=== PATIENT | female | born 1960 | race Caucasian/White ===

== ENCOUNTER 2018-02-14 07:36 | Day surgery (SDC) | payer OTHER, SELFPAY ==
[2018-02-12 12:07] VITALS: BMI 30.7
[2018-02-14] VITALS (14 sets, daily range): BP systolic 110–127; BP diastolic 57–85; PULSE 64–74; RESP 10–16; TEMP 35.9–36.9; O2SAT 92–100; BMI 30.2
[2018-02-14] MEDS: LACTATED RINGERS 1,000 ML 42 ML IV ×2 (08:46→11:31)
--- NOTE | 2018-02-14 08:48 | PM.PREOP ---
Pre-operative Note Interval Note Pre-op Check: History & Physical Reviewed by Physician
[2018-02-14] MEDS: fentaNYL 100 MCG/2 ML INJ 50 MCG IV ×2 (09:02→09:03)
[2018-02-14] MEDS: MIDAZOLAM 2 MG/2 ML VIAL IV (09:02)
[2018-02-14] MEDS: CEFTRIAXONE 2 GM/50 ML FROZ.PIGGY IV (09:29)
--- NOTE | 2018-02-14 10:29 | SUR.OPER ---
Lateral on padded OR bed with moore bag positioner, head on pillow, gel axillary roll in place, bottom leg bent with gel pad under knee to foot, upper leg straight and supported with pillows. Operative arm secured in shoulder positioning suspension device. non-operative arm secured on padded arm board. Safety belt at hip, tape over blanket securing lower legs.
[2018-02-14] MEDS: SODIUM CHLORIDE IRRIG SOLUTION 3,000 ML, EPINEPHrine 1 MG IRR ×2 (10:39→10:40)
[2018-02-14] MEDS: SODIUM CHLORIDE IRRIG SOLUTION 3,000 ML 24000 ML IRR (12:49)
[2018-02-14] MEDS: BUPIVACAINE 0.25% (PF) 30 ML VIAL INJ (12:59)
--- NOTE | 2018-02-14 13:43 | PM.OP.1 ---
Operative Date/Time/Diagnoses - Date of procedure: 02/14/18 Time of procedure: 09:43 Pre-op diagnosis: Right shoulder rotator cuff tear Right shoulder biceps tendinitis Right shoulder degenerative labral tear Post-op diagnosis: same Procedure & Clinicians Procedure: Right shoulder arthroscopic rotator cuff repair Right shoulder mini open biceps tenodesis Right shoulder arthroscopic debridement limited Same procedure as scheduled: Yes Indications: This is a 57-year-old female with a full-thickness rotator cuff tear and biceps tendon symptoms she received significant relief from a biceps tendon sheath injection was unable to return to her desired activity of paddling and rowing. She failed a course of non operative management and was indicated for operative repair. Risks benefits alternatives were discussed risks include pain bleeding infection damage nearby structures lack of symptom relief need for further procedures retear lack of healing kiana deformity and anesthetic risks. She signed a written consent form Surgeon: Miguel Rios Attending Anesthesiologist: Kika Covington Click Yes if Unassisted: No Anesthesia Type: General, Peripheral nerve block and Local Operative Notes Findings: Examination under anesthesia: 180? of forward flexion and 160? of Abduction. 70? of external rotation. No laxity on anterior posterior or inferior load and shift Diagnostic arthroscopy: Subscapularis tendon was intact. There was some hypertrophic synovium at the bicipital sling which was excised. The biceps tendon appeared intact with a stable anchor and a grade 1 slap tear. There was disruption of the rotator interval. There is a degenerative anterior labral tear that was debrided. Inferior and posterior labrum were intact. Rotator cuff showed a full-thickness tear of the supraspinatus with mild retraction that was easily reducible. Supraspinatus was fixed with a double row repair. Humeral head cartilage was intact. Glenoid cartilage was intact. Infraspinatus tendon was intact. Subacromial bursitis was evident and this was debrided. acromion was flat. Closure Type: primary Specimen(s): none sent Implants & Drains: Arthrex corkscrew x2. Arthrex SwiveLock x2. Arthrex fiber tack x1. Estimated Blood Loss (mL): 25 Blood products transfused: none Procedure in detail: Patient was met in the preoperative hold area on the day of the procedure and the operative extremity was signed. All questions were answered and she desired to proceed. A nerve block was performed by Anesthesia. She was then brought to the operating room and surrendered to anesthesia. Once general anesthesia had been obtained was placed in the lateral position using a beanbag, axillary roll was placed, all bony prominences were well padded. She was then prepped and draped in the standard sterile fashion and a surgical time-out was held to confirm the patient identity procedure laterality allergies images are in agreement we proceeded. A standard diagnostic arthroscopy of the shoulder was performed utilizing a posterior and anterior superior portal. The anterior superior portal was placed under direct visualization after the rotator interval had been imaged. Diagnostic arthroscopy findings can be found above. I then debrided a small amount of the sling tissue from the border of the subscapularis and found the subscapularis to be intact when posterior force was applied. The anterior labral tear was then debrided from the anterior border of the glenoid. The long head of biceps tendon was cut at its insertion to the labrum. I then removed the lateral force off of the arm and placed it in into the bursoscopy position. I then removed the instruments from the glenohumeral joint and placed the camera through the posterior portal and out the anterior portal cannula was then brought back down from the anterior skin portal into the subacromial space and a subacromial bursectomy was performed. The rotator cuff tear was evident and involved the entire supraspinatus insertion in a crescent pattern. I then debrided the free edge of the rotator cuff to a bleeding base. I established anterolateral and posterolateral working and viewing portals and placed a passport through the anterolateral wound. I then established a horizontal incision off the edge of the acromion for placement of the anchors. I then placed 2 medial row anchors just off the articular margin centered over the tear. I then sequentially passed all sutures through the cuff tissue the starting anteriorly and moving posteriorly. After sutures were passed with the tissue the anterior ones were brought out the anterior portal and the posterior was given a posterior portal. Satisfied with the passing of my sutures I then tied them from posterior to anterior using an arthroscopic sliding knot which was backed up with 3 half hitches alternating posts. Satisfied with the reduction of the tendon but signal was a small dog-ear posteriorly I placed a fiber link in that dog ear tissue. I then identified location of the lateral looked row 1 and 0.5 cm off the greater tuberosity lateral border. One suture from each knot was then passed out the passport and loaded onto a SwiveLock. I then placed the swivel locks in the identified position and tensioned each suture individually finding it provide excellent compression on the cuff. I then placed the anchor without complication. I then passed the remaining sutures through additional SwiveLock and this was included the fiber link in the dog-ear. The 2nd SwiveLock was placed posteriorly incorporating the dog-ear and helped to reduce it. Satisfied with the final construct images were taken and the repair was probed extensively and found to be stable. internal and external rotation showed the tendon to move with the humerus well. Balance suspension was then taken off of the limb I proceeded to the mini open biceps tenodesis. I created a 3 cm incision near the axilla centered over the Pec major tendon. I then used blunt dissection down through the fascia and identified the long head of the biceps tendon. It was delivered from the wound with my finger. A Macias elevator was then brought in and the bicipital groove was debrided of all synovial type tissue. The curved guide was then brought down into the bicipital groove just under the Brown major tendon and the suture tack was placed. It was found to have excellent fixation. Satisfied with its position I then started 2 cm proximal to the musculotendinous junction and placed 4 bites down 4 bites up and then with the other suture and a single passed through the tendon. I then pulled on the single pass 2 suture after cutting excess tendon and this reduced the tendon nicely down to the groove. A knot of a reverse half hitches alternating post was placed and this fixed nicely. Tension was restored. I then irrigated all wounds copiously and closed in layered fashion with 2 O Vicryl in the dermis and buried Monocryl in the skin. Mastisol and Steri-Strips were placed with an overlying dressing. She was awakened and transferred to the recovery room. Complications: none Condition: stable Disposition: same day surgery Plan for aftercare: 0-2 weeks: Sling at all times. Perform pendulum exercises. 2-6 weeks: Passive range of motion to the arise in an external rotation on limited. No active biceps flexion. 6-12 weeks active assist range of motion in Abduction and forward flexion. May gradually increase active flexion at the elbow. Twelve weeks to 5 months: Active range of motion of the shoulder with gradual strengthening when full range of motion is achieved. Five months: May begin dynamic activities to include paddling if ready.
== END 2018-02-14 15:25 | disposition home or self-care (01) ==
PROVIDERS: Visit Provider Orthopaedic Surgery
PROC: (CPT 29827; principal; 2018-02-14 09:15)
PROC: (CPT 24341; 2018-02-14 09:15)
DX: M75.101 Unspecified rotator cuff tear or rupture of right shoulder, not specified as traumatic (principal); M75.21 Bicipital tendinitis, right shoulder; S43.431A Superior glenoid labrum lesion of right shoulder, initial encounter; E66.9 Obesity, unspecified
CPT/HCPCS: 23430; 29827; 64450; J0171; J0696; J1100; J2250; J2405; J2704; J3010

== ENCOUNTER 2021-10-09 17:21 | Inpatient (IN) | payer OTHER, SELFPAY ==
[2021-10-09 17:37] VITALS: BMI 30.7
--- NOTE | 2021-10-09 20:49 | P.HP_ITS ---
History of Present Illness History of Present Illness Date Patient Seen: 10/09/21 Time Patient Seen: 20:49 Chief complaint: Infected Kidney Stone Narrative: Nadege Russo is a 60-year-old female with no particular medical history apparently woke up approximately 24 hours ago with shivers back pain bilaterally, pain in her lower pubic area. She thought she was constipated that she had not had a bowel movement but then had a small amount of stool. She denies fevers sweats or chills, shortness of breath, chest pain, nausea vomiting, urinary retention, diarrhea, or upper lower extremity neuropathies. She tried Tylenol to help relieve the pain because she can not take nonsteroidal anti-inflammatories. She states that when she takes and states she loses her sense of smell. She has a past medical history of asthma. The patient is a direct admission from [facility] due to having a need for access to a urologist. She was found to have to obstructing renal stones 1 being 4 x 8 mm in the left ureteropelvic junction and another 7 x 11 mm stone in the left ureteral vesicle junction. The report stated there was mild hydronephrosis. Patient has a mild fever of 99.4, blood pressure 122/57, heart rate 83, respiratory rate 18, oxygen saturation 94% on room air she weighs 86.5 kg with a BMI of 30.7. Her labs taken at [facility] included a WBC of 7.6, RBC 4.72, hemoglobin 13.5, hematocrit 41.8, platelet count 206, with a mild left shift of 7100, sodium 137, potassium 3.8, chloride 101, by carb 26, BUN 16, creatinine 0.9, with a job GFR of 63, glucose 140, calcium 9.2, total bilirubin 1.1, AST 27, ALT 38, alk phos 94, total protein 9.6, albumin 4.3, globulin 3.3, lipase 31, her UA was positive for being cloudy with a urine pH of 6.5 she had a small- bowel of occult blood positive nitrates moderate leukocytes WBC clumps with rare squamous cells moderate amount of bacteria with indications for a urine culture. Patient History Medical History Asthma Biceps tendinitis of right shoulder Eczema Impaired vision Prediabetes Rotator cuff tear, right Family & Social History Family History (Updated 10/10/21 @ 00:40 by ARIELA Babin) Mother Myocardial infarction Father Unspecified aircraft accident injuring occupant, sequela Social History: household members spouse,children Prior Living Arrangements House Safety & Behavioral: Feels Safe in Current Yes Environment Been Physically Hurt or No Threatened By a Person Suicidal Ideation Description None Suicide Plan Description No Plan Tobacco & Substance use: Smoking Status Never smoker alcohol intake current alcohol intake frequency holiday/special occasion Substance Use Type does not use Meds Home Medications and Allergies Home Medications Medication Instructions Recorded Confirmed Type loratadine 10 mg tablet 10 mg PO DAILY 02/12/18 10/09/21 History fluticasone propionate 115 2 puff INHALATION BID 10/09/21 10/09/21 History mcg-salmeterol 21 mcg/actuation HFA inhaler (Advair HFA) Allergies Allergy/AdvReac Type Severity Reaction Status Date / Time NSAIDS (Non-Steroidal Allergy Unknown Loss of Verified 02/12/18 12:24 Anti-Inflamma smell, insomnia Sulfa (Sulfonamide Allergy Unknown Hives, Verified 02/12/18 12:24 Antibiotics) rash, swelling Review of Systems Review of Systems ROS: Yes All systems reviewed with the patient and are negative except as otherwise documented Exam Vital Signs (past 8 hours): Patient has a mild fever of 99.4, blood pressure 122/57, heart rate 83, respiratory rate 18, oxygen saturation 94% on room air she weighs 86.5 kg with a BMI of 30.7. Narrative Exam Narrative: Gen: Alert, oriented, well-developed 60 y.o. female, pale HEENT: normocephalic, atraumatic, conjunctiva clear, sclera non-icteric, oral mucosa pink and moist Neck: supple, full ROM, no JVD, trachea is midline Resp: Lungs CTA, non-labored breathing CV: RRR, no murmur or rubs Abd: soft, non-tender, normoactive BTs she does have bilateral cva tenderness Skin: no lesions or rashes, dry and intact Neuro: Alert and oriented X 4 w/no focal deficits. Speech clear and coherent. Extremities: moves all 4 extremities, is ambulatory, negative Keith?s sign Psyche: normal mood and affect. Assessment & Plan Assessment & Plan narrative: Nadege Russo is admitted as an inpatient for further evaluation and treatment for to left-sided rather large renal calculi. 1. Left-sided renal calculi no acute, present on admission * Dr. Cannon has been notified and will likely see the patient in the morning * She is NPO * Have started her on IV ceftriaxone 1 g daily * IV NS at 100 ml/hour VTE Prophylaxis: Wells risk score 0 Bilateral SCDs. Pharmacological DVT prophylaxis is contraindicated due to probable surgery in the morning. Patient is admitted to the inpatient service due to the severity of disease, risks of further disease progression and this stay is expected to exceed 2 midnights. FEN: IV fluids: IV NS at 100 ml/hour, diet: NPO, labs: CBC, C/BMP, liver enzymes, Mag Consultants None Dr. Cannon, urologycare and involvement in the patient?s care is appreciated. Dispo: probable discharge to home in one or two days Code status: Full code as discussed with the patient who identifies her , Damon Russo as her surrogate and POA. [X] I have utilized all available immediate resources to obtain, update, or review of the patient's current medications COVID-19 COVID-19 status: Negative Result date/Date tested (Pos, Neg/Pending): 10/10/21 Time Spent With Patient Critical Care time: I spent a total of [] minutes of critical care time on this patient's care today; this time is exclusive of procedural time. Quality VTE Deep Vein Thrombosis/Pulmonary Embolism Present on Admission: No MIPS - Admit I confirm the patient?s Advance Care Plan is present, Code status is documented, Surrogate decision maker is in patient?s record [If Yes, STOP here]: Yes MIPS - DC The patient has current or prior documentation of left ventricular ejection fraction (LVEF) less than 40%, or moderate or severely depressed left ventricular systolic function.: No
[2021-10-09 20:50] VITALS: BP 111/60; PULSE 76; RESP 16; TEMP 37.2; O2SAT 94
[2021-10-09] MEDS: cefTRIAXone 1,000 MG in SODIUM CHLORIDE 0.9% 100 ML 200 ML IV (20:51)
[2021-10-09] MEDS: SODIUM CHLORIDE 0.9% 1,000 ML 100 ML IV ×2 (20:51→23:06)
[2021-10-09] MEDS: KETOROLAC 30 MG/ML VIAL 15 MG IV (23:24)
[2021-10-09 23:58] VITALS: BP 122/57; PULSE 83; RESP 18; TEMP 37.4; O2SAT 94
[2021-10-10] VITALS (13 sets, daily range): BP systolic 116–139; BP diastolic 61–78; PULSE 70–91; RESP 14–20; TEMP 37.1–38.5; O2SAT 93–98; BMI 30.7
--- NOTE | 2021-10-10 | DI.RAD.S_ITS ---
PROCEDURE: XR ABDOMEN 1V INDICATIONS: LEFT STENT PLACEMENT TECHNIQUE: One view of the abdomen acquired. COMPARISON: [facility], CT, CT KIDNEY URETER BLADDER (KUB), 10/10/2021, 7:52. FINDINGS: A single fluoroscopy image demonstrate placement of left ureteral stent. Proximal ureteral stent is formed in the left upper abdomen. The distal and is not within the field of view. IMPRESSION: Placement of left ureteral stent. Dictated by: Dorothea Corrales M.D. on 10/10/2021 at 16:55 Approved by: Dortohea Corrales M.D. on 10/10/2021 at 16:56
[2021-10-10] MEDS: MORPHINE 2 MG/ML INJ IV ×3 (04:25→20:37)
[2021-10-10 06:25] LABS: Add Manual Diff / Slide Review NO; Basophils Absolute Auto 0 /uL (0-100); Basophils Percent Auto 0.7 % (0-2); Eosinophils Absolute Auto 0 /uL (0-450); Eosinophils Percent Auto 0.2 % (2-4); Hematocrit 35.3 % (36-46); Hemoglobin 11.8 g/dL (12.0-16.0); Lymphocytes Absolute Auto 200 /uL (1100-4500); Lymphocytes Percent Auto 2.9 % (25-40); Mean Corpuscular HGB Conc 33.4 % (30-36); Mean Corpuscular Hemoglobin 28.6 PG (26-34); Mean Corpuscular Volume 85.8 fL (80-100); Monocytes Absolute Auto 300 /uL (0-900); Neutrophils Absolute Auto 4800 /uL (1500-7000); Neutrophils Percent Auto 91.2 % (50-75); Platelet Count 152 X10^3/uL (150-400); Red Blood Cell Count 4.11 X10^6/uL (4.0-5.2); Red Cell Distribution Width 14.6 % (11.6-14.8); White Blood Cell Count 5.3 X10^3/uL (4.5-11.0)
[2021-10-10 06:32] LABS: Alanine Aminotransferase 29 IU/L (<35); Albumin 3.7 g/dL (3.5-5.0); Albumin Globulin Ratio 1.3 (1.0-2.8); Alkaline Phosphatase 80 U/L (38-126); Aspartate Aminotransferase 24 IU/L (14-36); BUN Creatinine Ratio 18.3 (6-22); Bilirubin Total 0.8 mg/dL (0.2-1.3); Bilirubin Unconjugated 0.7 mg/dL (0.0-1.1); Blood Urea Nitrogen 15 mg/dL (7-17); Calcium 8.8 mg/dL (8.4-10.2); Carbon Dioxide 24 mmol/L (22-32); Chloride 107 mmol/L (98-107); Estimated Glomerular Filt Rate > 60.0 mL/min (>60); Globulin 2.9 g/dL (1.7-4.1); Glucose 114 mg/dL (80-110); HEMOLYSIS < 15 (0-50); Potassium 3.8 mmol/L (3.4-5.1); Sodium 136 mmol/L (137-145); Total Protein 6.6 g/dL (6.3-8.2)
[2021-10-10 06:49] LABS: Procalcitonin 7.86 ng/mL (<0.5)
--- NOTE | 2021-10-10 07:40 | P.CONS_ITS ---
History of Present Illness Consult details Date Patient Seen: 10/10/21 Time Patient Seen: 07:40 Chief complaint: Infected Kidney Stone Reason for consult: Obstructing left ureteral calculi Requesting provider: Malorie Bonilla Narrative: The patient is generally healthy 60-year-old female presented to [facility] less than 24 hours ago with complaint of bilateral back pain, suprapubic discomfort, and shivers. She denied fever, chills, nausea, vomiting, or dysuria. Evaluation revealed essentially normal WBC with mild left shift, in normal chemistries other than mildly elevated glucose consistent with her previous history of ?prediabetes uncle. Urinalysis demonstrated moderate bacteria and rare squamous cells and was nitrite positive. Imaging, by history (images and report were not push to [facility]!), is that a 4 x 8 mm left ureteropelvic junction calculus and a 7 x 11 mm left ureteral vesicle junction calculus associated with mild left hydronephrosis were demonstrated. Request for transfer to the medical service was established and now urology consultation requested. Meds Home Medications and Allergies Home Medications Medication Instructions Recorded Confirmed Type loratadine 10 mg tablet 10 mg PO DAILY 02/12/18 10/09/21 History fluticasone propionate 115 2 puff INHALATION BID 10/09/21 10/09/21 History mcg-salmeterol 21 mcg/actuation HFA inhaler (Advair HFA) Allergies Allergy/AdvReac Type Severity Reaction Status Date / Time NSAIDS (Non-Steroidal Allergy Unknown Loss of Verified 02/12/18 12:24 Anti-Inflamma smell, insomnia Sulfa (Sulfonamide Allergy Unknown Hives, Verified 02/12/18 12:24 Antibiotics) rash, swelling Review of Systems Review of Systems ROS: Yes All systems reviewed with the patient and are negative except as otherwise documented Exam Vital Signs (past 8 hours): - 10/09/21 23:58 10/10/21 04:15 Temperature 99.4 F 98.7 F Pulse Rate 83 91 H Respiratory Rate 18 20 Blood Pressure 122/57 L 134/69 Pulse Oximetry 94 Oxygen Flow Rate 96 Narrative Exam Narrative: Awake, alert, and in no acute distress. Head/neck-sclera clear and pupils are round and equal bilaterally. No visible evidence of adenopathy or JVD. Chest-equal and unlabored expansion bilaterally. Heart-normal sinus rhythm. Abdomen-nondistended bowel tones are normal and active. No localizing tenderness. Objective Labs Result Diagrams: 10/10/21 05:39 10/10/21 05:39 Labs: Laboratory Results - last 24 hr 10/10/21 10/10/21 10/10/21 05:39 05:39 05:39 WBC 5.3 RBC 4.11 Hgb 11.8 L Hct 35.3 L MCV 85.8 MCH 28.6 MCHC 33.4 RDW 14.6 Plt Count 152 Neut % (Auto) 91.2 H Lymph % (Auto) 2.9 L [place] % (Auto) 5.0 Eos % (Auto) 0.2 L Baso % (Auto) 0.7 Neut # (Auto) 4800 Lymph # (Auto) 200 L [place] # (Auto) 300 Eos # (Auto) 0 Baso # (Auto) 0 Sodium 136 L Potassium 3.8 Chloride 107 Carbon Dioxide 24 BUN 15 Creatinine 0.82 Estimated GFR > 60.0 BUN/Creatinine Ratio 18.3 Glucose 114 H Calcium 8.8 Total Bilirubin 0.8 Conjugated Bilirubin 0.0 Unconjugated Bilirubin 0.7 AST 24 ALT 29 Alkaline Phosphatase 80 Total Protein 6.6 Albumin 3.7 Globulin 2.9 Albumin/Globulin Ratio 1.3 Procalcitonin 7.86 H [facility] Medical History Asthma Biceps tendinitis of right shoulder Eczema Impaired vision Prediabetes Rotator cuff tear, right Family History Mother Myocardial infarction Father Unspecified aircraft accident injuring occupant, sequela Social History household members: spouse and children Tobacco & Substance Use Smoking Status: Never smoker alcohol intake: current Assessment & Plan Assessment & Plan narrative: Assessment: 1. Obstructing left ureteral calculi x2. 2. UTI/possible left pyelonephritis. Plan: 1. Discussion informed consent in scheduling to OR for CYSTOSCOPY/PLACEMENT LEFT URETERAL STENT. 2. Continue current ceftriaxone and await final culture and sensitivity before transition to oral antibiotic for sensitivity panel. Recommend 2 week antibiotic treatment. 3. Future left ureteroscopic laser lithotripsy. 4. Future metabolic stone risk evaluation. 5. CT KUB. 6. Request images and reports pushed from [facility]. Time Spent With Patient Critical Care time: I spent a total of [] minutes of critical care time on this patient's care today; this time is exclusive of procedural time.
[2021-10-10] MEDS: KETOROLAC 30 MG/ML VIAL 15 MG IV (07:45)
[2021-10-10] MEDS: SODIUM CHLORIDE 0.9% 1,000 ML 100 ML IV (07:46)
--- NOTE | 2021-10-10 08:05 | DI.CT.S_ITS ---
PROCEDURE: CT KIDNEY URETER BLADDER (KUB) INDICATIONS: Left ureteral calculi TECHNIQUE: Axial sections were acquired from the lung bases to the pubic symphysis. Coronal and sagittal reformats were performed. For radiation dose reduction, the following was used: automated exposure control, adjustment of mA and/or kV according to patient size. COMPARISON: [facility], , CT ABDOMEN/PELVIS WITH CONTRAST, 10/09/2021, 7:37. FINDINGS: Image quality: Excellent. Lung bases: Bibasilar dependent atelectasis is seen.. Heart: No significant findings. URINARY: Right Kidney: Again noted is 4 x 8 mm stone in left UPJ. Nonobstructing stone in midpole of left kidney measures 3 mm in size is also seen. There is mild to moderate left-sided hydronephrosis and mild left perinephric fat stranding. Right Ureter: Right hydroureter is seen with 6 mm stone in distal left ureter just proximal to left UVJ unchanged from previous study. Mild left periureteral fat stranding is also seen. Left Kidney: No stones or hydronephrosis. Left Ureter: No hydroureter. Bladder: Normal wall thickness. No stones. ABDOMEN: Liver: Unremarkable. Gallbladder: Hyperdense material within dependent portion of gallbladder lumen is seen and may represent hyperdense sludge material. No gallbladder wall thickening or pericholecystic fluid is seen. Biliary ducts: Unremarkable. Pancreas: Unremarkable. Spleen: Unremarkable. Adrenal Glands: Unremarkable. Stomach and Bowel: Stomach, small bowel loops, and colon are unremarkable. Appendix is visualized and is within normal limits. Mild sigmoid diverticulosis is noted, no CT evidence of acute diverticulitis. Peritoneum: No abnormal intraperitoneal fluid. No free air. Ventral Wall: No hernia. Abdominal Nodes: No enlarged retroperitoneal or mesenteric lymph nodes. Vessels: Aorta and inferior vena cava are normal in size. PELVIS: Pelvic Organs: Unremarkable. Pelvic Nodes: Unremarkable. Miscellaneous: No inguinal hernias are seen. Bones: No acute vertebral body compression fractures. No suspicious bony lesion. IMPRESSION: 1. 6 mm left distal ureteral stone just proximal to left UVJ unchanged from prior study. 4 x 8 mm left UPJ stone also unchanged from prior study. Mild to moderate left-sided hydronephrosis and hydroureter as well as mild left perinephric fat stranding. No right-sided renal stone or hydronephrosis. Normal appearing urinary bladder. 2. Hyperdense material in dependent portion of gallbladder lumen likely represent hyperdense sludge material. No CT evidence of acute cholecystitis. No biliary ductal dilatation. 3. Previous CT finding of prominent left gonadal veins is not appreciated on the current study likely due to lack of IV contrast. Previous CT finding of tiny hypodensities in spleen is also not well appreciated on the current study. Dictated by: Anibal Ramirez M.D. on 10/10/2021 at 8:49 Approved by: Anibal Ramirez M.D. on 10/10/2021 at 8:56
--- NOTE | 2021-10-10 08:52 | CM.DANOTE ---
DCP: Case received, EMR reviewed and met with patient. Introduced self and role. Was able to obtain information regarding patient's baseline activity level prior to hospitalization. DCP assessment completed with information currently available. Patient is a 60 year old female who admitted yesterday afternoon to the care of the hospitalist team. PCP: [facility] Payer: confirmed: [employer]. Patient came to the hospital via private vehicle sent over from [facility]. Patient was in need of a urologist, which [facility] currently does not have. Patient had been experiencing increased back pain. Patient holds diagnosis of obstructing kidney stone, and UA had noted moderate bacteria. Dr. Roman will be seeing patient. Met with patient in her room. She was sitting up in her chair, alert and oriented, pleasant. Patient resides in [place] with her spouse, Damon. She is independent at her baseline, and goes to the [facility] clinic for her primary care needs. P: DCP to continue to follow. Patient should be able to go home when she is medically stable. Kaitlin Arredondo RN/Elementary Classroom Teacher Discharge Planning/Care Management CM Discharge Assessment Start: 10/10/21 08:46 Freq: Status: Active Protocol: Document 10/10/21 08:46 (Rec: 10/10/21 08:52 [id number]) Discharge Planning Assessment Assigned Truck Loader Kaitlin Arredondo RN/Elementary Classroom Teacher Advance Directives? No History Provided By Patient,Medical Record Prior Living Arrangements House Household Members spouse,children Type of transporation used prior to Drives own vehicle admit Independent with ADL's Yes Is patient alert and oriented? Yes Caregiver for Another No Discharge Plan Home Transportation Arrangement Spouse Referrals Initiated None needed Whiteboard Updated in Patient Room with Yes name and ext. # of Truck Loader Review Status In Process Next Review Type Continued Stay Review
[2021-10-10] MEDS: LACTATED RINGERS 1,000 ML 42 ML IV (14:47)
--- NOTE | 2021-10-10 15:35 | SUR.OPER ---
Lithotomy on padded OR bed, head on pillow, arms secured on padded arm boards at <90 degrees abduction. Legs secured in padded yellow fins stirrups.
[2021-10-10] MEDS: BELLADONNA/OPIUM SUPPOSITORIES 1 EACH PR (16:12)
--- NOTE | 2021-10-10 16:31 | PM.OP.1 ---
Operative Date/Time/Diagnoses Date of procedure: 10/10/21 Time of procedure: 16:31 Pre-op diagnosis: 1. Obstructing left ureteral calculi x2. 2. UTI/left pyelonephritis. Post-op diagnosis: same Procedure & Clinicians Procedure: 1. Cystoscopy/left ureteral stone manipulations without removal. 2. Cystoscopy/placement left ureteral stent (7 Paraguayan by 22-32 cm multi-length). Same procedure as scheduled: Yes Indications: 1. Obstructing left ureteral calculi x2. 2. UTI/left pyelonephritis in Click Yes if Unassisted: Yes Anesthesia Type: General Operative Notes Findings: 1. Urethra-mildly stenotic at approximately 16-18 Paraguayan diameter. Gently dilated with the 22 Paraguayan cystoscope obturator. 2. Bladder-trace trabeculation. Hyperemia throughout generally and more intensely in of a single left ureteral orifice and intramural ureter. There was a small amount of sediment somewhat adherent to the bladder base. Obstructive efflux was seen emanating from the swollen and erythematous left ureteral orifice following positioning of the ureteral guidewire and subsequent stent. Closure Type: not applicable Specimen(s): none sent Applied: other (7. Paraguayan by 22-32 cm multi-length stent) Estimated Blood Loss (mL): 0 Blood products transfused: none Procedure in detail: Patient was positioned in supine was administered general anesthesia. She was then repositioned semi lithotomy and the lower abdomen, genitalia, and groin were then prepped and draped in sterile fashion. Twenty-two Paraguayan panendoscope was passed lower urinary track after gentle dilation with the obturator, with the findings as described above. Next a 0.35 hybrid guidewire was then advanced through the working port of the panendoscope and and the left ureteral orifice under direct and fluoroscopic guidance. Over this, a 7 Paraguayan by 22-32 cm multi-length stent was advanced over the guidewire and positioned appropriately under direct and fluoroscopic guidance. NO RETRIEVAL LINE WAS LEFT ATTACHED. The bladder was then drained completely and all instrumentation was removed. The patient was repositioned supine, was awake, within was transferred to a gurney for transport to PACU. Complications: none Post-operative Condition: stable Disposition: PACU Plan for aftercare: Admit to acute care.
--- NOTE | 2021-10-10 17:14 | PM.PN.1 ---
Subjective Subjective Date Patient Seen: 10/10/21 Time Patient Seen: 08:00 Interval history: This morning she felt not great. Still having flank pain. Exam Vital Signs (past 8 hours): - 10/10/21 14:24 10/10/21 16:34 10/10/21 16:39 Temperature 101.3 F H 99.7 F H Pulse Rate 75 86 78 Respiratory Rate 16 17 15 Blood Pressure 139/78 120/62 129/65 Pulse Oximetry 96 95 10/10/21 16:44 10/10/21 16:49 10/10/21 16:54 Temperature 99.5 F Pulse Rate 77 75 72 Respiratory Rate 14 15 15 Blood Pressure 124/65 128/64 125/62 Pulse Oximetry 95 94 95 10/10/21 16:59 10/10/21 17:03 Temperature Pulse Rate 72 73 Respiratory Rate 15 15 Blood Pressure 121/65 128/63 Pulse Oximetry 93 94 Oxygen Delivery Method Room Air Oxygen Flow Rate 0 Narrative Exam Narrative: Gen: no acute distress Resp: lungs clear bilaterally CV: regular rate and rhythm Abd: soft, non-tender Objective Labs Result Diagrams: 10/10/21 05:39 10/10/21 05:39 Labs: Laboratory Results - last 24 hr 10/10/21 10/10/21 10/10/21 05:39 05:39 05:39 WBC 5.3 RBC 4.11 Hgb 11.8 L Hct 35.3 L MCV 85.8 MCH 28.6 MCHC 33.4 RDW 14.6 Plt Count 152 Neut % (Auto) 91.2 H Lymph % (Auto) 2.9 L Vermilion % (Auto) 5.0 Eos % (Auto) 0.2 L Baso % (Auto) 0.7 Neut # (Auto) 4800 Lymph # (Auto) 200 L Vermilion # (Auto) 300 Eos # (Auto) 0 Baso # (Auto) 0 Sodium 136 L Potassium 3.8 Chloride 107 Carbon Dioxide 24 BUN 15 Creatinine 0.82 Estimated GFR > 60.0 BUN/Creatinine Ratio 18.3 Glucose 114 H Calcium 8.8 Total Bilirubin 0.8 Conjugated Bilirubin 0.0 Unconjugated Bilirubin 0.7 AST 24 ALT 29 Alkaline Phosphatase 80 Total Protein 6.6 Albumin 3.7 Globulin 2.9 Albumin/Globulin Ratio 1.3 Procalcitonin 7.86 H [facility] Medical History Asthma Biceps tendinitis of right shoulder Eczema Impaired vision Prediabetes Rotator cuff tear, right Family History Mother Myocardial infarction Father Unspecified aircraft accident injuring occupant, sequela Social History household members: spouse and children Smoking Status: Never smoker alcohol intake: current Assessment & Plan Assessment & Plan narrative: 1. UTI with infected kidney stone with obstructed ureter and hydronephrosis -CT scan shows two obstructing kidney stones -patient has remained NPO, on IV antibiotics -await cultures -urology consult with plan intervention today 10/10 2. Anemia -mild -no need for transfusion, monitor 3. Spleen hypodensities -repeat CT scan does not show clear hypodensities -follow up with PCP on discharge Time Spent With Patient Critical Care time: I spent a total of [] minutes of critical care time on this patient's care today; this time is exclusive of procedural time. Quality VTE Deep Vein Thrombosis/Pulmonary Embolism Present on Admission: No
[2021-10-10] MEDS: LACTATED RINGERS 1,000 ML 125 ML IV (17:29)
--- NOTE | 2021-10-10 19:16 | PC.NURSE ---
A&Ox4. Returned from PACU this evening. Room air 94%. VSS. Pain 0-2/10. Good appetite, tolerating food and oral liquids well. Non/v. LR @ 125. 700 urine output, clear yellow. SBA. SCDs on BLE. Call light within reach, bed low.
[2021-10-10] MEDS: cefTRIAXone 1,000 MG in SODIUM CHLORIDE 0.9% 100 ML 200 ML IV (20:32)
--- NOTE | 2021-10-10 21:02 | RT ---
Went to give breathing treatments to pt at 2035. Pt prefers to use her own MDIs she brought from home. RN aware of labels needed for pt's meds in the morning.
[2021-10-11 00:46] VITALS: BP 120/61; PULSE 56; RESP 18; TEMP 36.2; O2SAT 99
[2021-10-11] MEDS: OXYCODONE IR 5 MG TABLET PO ×2 (00:49→08:22)
[2021-10-11 05:02] VITALS: BP 125/53; PULSE 45; RESP 16; TEMP 36.2; O2SAT 96
[2021-10-11 06:09] LABS: Hematocrit 33.6 % (36-46); Hemoglobin 11.3 g/dL (12.0-16.0); Mean Corpuscular HGB Conc 33.7 % (30-36); Mean Corpuscular Hemoglobin 28.5 PG (26-34); Mean Corpuscular Volume 84.4 fL (80-100); Platelet Count 145 X10^3/uL (150-400); Red Blood Cell Count 3.98 X10^6/uL (4.0-5.2); Red Cell Distribution Width 14.3 % (11.6-14.8); White Blood Cell Count 3.3 X10^3/uL (4.5-11.0)
[2021-10-11 06:24] LABS: BUN Creatinine Ratio 21.1 (6-22); Blood Urea Nitrogen 12 mg/dL (7-17); Carbon Dioxide 26 mmol/L (22-32); Chloride 109 mmol/L (98-107); Estimated Glomerular Filt Rate > 60.0 mL/min (>60); Glucose 152 mg/dL (80-110); HEMOLYSIS < 15 (0-50); Sodium 138 mmol/L (137-145)
[2021-10-11 06:25] LABS: Alanine Aminotransferase 33 IU/L (<35); Albumin 3.6 g/dL (3.5-5.0); Albumin Globulin Ratio 1.2 (1.0-2.8); Alkaline Phosphatase 113 U/L (38-126); Aspartate Aminotransferase 31 IU/L (14-36); Bilirubin Total 0.4 mg/dL (0.2-1.3); Bilirubin Unconjugated 0.4 mg/dL (0.0-1.1); Globulin 2.9 g/dL (1.7-4.1); HEMOLYSIS < 15 (0-50); Total Protein 6.5 g/dL (6.3-8.2)
[2021-10-11] MEDS: LORATADINE 10 MG TABLET PO (08:22)
[2021-10-11 10:18] VITALS: BP 131/75; PULSE 56; RESP 21; TEMP 36.7; O2SAT 97
--- NOTE | 2021-10-11 12:03 | PC.NURSE ---
Patient complained of pain x1 this am. She is independent in her room. Given oxycodone for discomfort and helpful. Patient is most likely going to discharge home today. She is sitting up in her chair now.
--- NOTE | 2021-10-11 14:01 | PM.PN.1 ---
Subjective Subjective Date Patient Seen: 10/11/21 Time Patient Seen: 07:20 Interval history: Postoperative day 1. Status post cystoscopy/manipulation of left ureteral calculi/placement left ureteral stent. She reports a smooth an excellent recovery thus far. She states that left flank and abdominal pain have essentially resolved. She would say that her current pain level is at most a 2 to 3/10. She is tolerating general diet. Explained intraoperative findings. She had several clarifying questions regarding the overall plan since she had been under the influence of narcotic analgesics when I spoke to her at length yesterday. Exam Vital Signs (past 8 hours): - 10/11/21 10:18 Temperature 98.1 F Pulse Rate 56 L Respiratory Rate 21 Blood Pressure 131/75 Pulse Oximetry 97 Oxygen Delivery Method Room Air Oxygen Flow Rate 0 Objective Labs Result Diagrams: 10/11/21 05:31 10/11/21 05:31 Labs: Laboratory Results - last 24 hr 10/11/21 10/11/21 10/11/21 05:31 05:31 05:31 WBC 3.3 L RBC 3.98 L Hgb 11.3 L Hct 33.6 L MCV 84.4 MCH 28.5 MCHC 33.7 RDW 14.3 Plt Count 145 L Sodium 138 Potassium 4.0 Chloride 109 H Carbon Dioxide 26 BUN 12 Creatinine 0.57 Estimated GFR > 60.0 BUN/Creatinine Ratio 21.1 Glucose 152 H Calcium 9.0 Total Bilirubin 0.4 Conjugated Bilirubin 0.0 Unconjugated Bilirubin 0.4 AST 31 ALT 33 Alkaline Phosphatase 113 Total Protein 6.5 Albumin 3.6 Globulin 2.9 Albumin/Globulin Ratio 1.2 PFSH Medical History Asthma Biceps tendinitis of right shoulder Eczema Impaired vision Prediabetes Rotator cuff tear, right Family History Mother Myocardial infarction Father Unspecified aircraft accident injuring occupant, sequela Social History household members: spouse and children Smoking Status: Never smoker alcohol intake: current Assessment & Plan Assessment & Plan narrative: Assessment: 1. Improved postop day 1 status post cystoscopy and placement left ureteral stent for 2 obstructing left ureteral calculi and UTI/possible left pyelonephritis. 2. Cultures from [facility] remain pending. The patient has responded to intravenous ceftriaxone. Ideally, prescribed oral antibiotic for 2 weeks based on culture and sensitivity. 3. [facility] will contact patient for follow-up of left indwelling stent and definitive treatment of left ureteral and left renal calculi. Plan: 1. May discharge from standpoint once final cultures allow directed oral treatment of offending organism for 2 week course. 2. Discussed plan and follow-up with hospital service this morning and all in agreement. Time Spent With Patient Critical Care time: I spent a total of [] minutes of critical care time on this patient's care today; this time is exclusive of procedural time. Quality VTE Deep Vein Thrombosis/Pulmonary Embolism Present on Admission: No
--- NOTE | 2021-10-11 14:33 | CM.DPC ---
DCP Discharge Home Per Hospitalist, pt medically stable to d/c home today with no identified barriers to discharge. Per Urologist, pt stable for d/c today pending culture results to confirm 2 weeks of oral abx and outpt follow up in Urology Clinic for post stent placement. Per RN, pt tolerating food and has voided independently and pain well managed and pt agreeable with d/c to home today. Plan: Patient to d/c home today via POV and no further SW needs at this time. JUDITH Song
--- NOTE | 2021-10-11 18:43 | PM.DS.1 ---
History of Present Illness History of Present Illness Chief complaint: Infected Kidney Stone Narrative: Per Malorie Bonilla: Nadege Russo is a 60-year-old female with no particular medical history apparently woke up approximately 24 hours ago with shivers back pain bilaterally, pain in her lower pubic area.? She thought she was constipated that she had not had a bowel movement but then had a small amount of stool.? She denies fevers sweats or chills, shortness of breath, chest pain, nausea vomiting, urinary retention, diarrhea, or upper lower extremity neuropathies.? She tried Tylenol to help relieve the pain because she can not take nonsteroidal anti-inflammatories.? She states that when she takes and states she loses her sense of smell.? She has a past medical history of asthma. The patient is a direct admission from [facility] due to having a need for access to a urologist.? She was found to have to obstructing renal stones 1 being 4 x 8 mm in the left ureteropelvic junction and another 7 x 11 mm stone in the left ureteral vesicle junction.? The report stated there was mild hydronephrosis.? Patient has a mild fever of 99.4, blood pressure 122/57, heart rate 83, respiratory rate 18, oxygen saturation 94% on room air she weighs 86.5 kg with a BMI of 30.7.? Her labs taken at [facility] included a WBC of 7.6, RBC 4.72, hemoglobin 13.5, hematocrit 41.8, platelet count 206, with a mild left shift of 7100, sodium 137, potassium 3.8, chloride 101, by carb 26, BUN 16, creatinine 0.9, with a job GFR of 63, glucose 140, calcium 9.2, total bilirubin 1.1, AST 27, ALT 38, alk phos 94, total protein 9.6, albumin 4.3, globulin 3.3, lipase 31, her UA was positive for being cloudy with a urine pH of 6.5 she had a small-bowel of occult blood positive nitrates moderate leukocytes WBC clumps with rare squamous cells moderate amount of bacteria with indications for a urine culture. Discharge Providers Provider Date of admission: 10/09/21 17:21 Discharge Date: 10/11/21 Consults: 10/09/21 19:52 Consult to Physician Routine Comment: Consulting Provider: Burt Cannon Reason for consultation: obstructing kidney stones Has provider been notified: Yes Discharge provider: Clifford Glaser MD Summary Hospital Course Discharge Diagnosis: 1. UTI/Pyelonephritis with two infected kidney stones on left kidney with obstructed ureter and hydronephrosis 2. Anemia 3. Spleen hypodensities Hospital Course: Ms. Russo was admitted with fevers and back/flank discomfort, and dysuria. She was found to have a UTI with pansensitive E. coli. CT showed two obstructing kidney stones on the left causing hydronephrosis. She placement of a stent and felt much improved after this procedure. She was discharged with a few days of pain medications and oral antibiotics to complete a 14 day course. She is recommended to follow up with urology within one week. She was also noted to have possible small [facility]. These were not as visible on repeat CT scan. Etiology of this is unclear and she should follow closely with her PCP to consider further workup. Exam Vital Signs (past 8 hours): Oxygen Delivery Method Room Air Oxygen Flow Rate 0 Narrative Exam Narrative: Gen: no acute distress Resp: lungs clear bilaterally CV: regular rate and rhythm Abd: soft, non-tender Objective Labs Result Diagrams: 10/11/21 05:31 10/11/21 05:31 Labs: Laboratory Results - last 24 hr 10/11/21 10/11/21 10/11/21 05:31 05:31 05:31 WBC 3.3 L RBC 3.98 L Hgb 11.3 L Hct 33.6 L MCV 84.4 MCH 28.5 MCHC 33.7 RDW 14.3 Plt Count 145 L Sodium 138 Potassium 4.0 Chloride 109 H Carbon Dioxide 26 BUN 12 Creatinine 0.57 Estimated GFR > 60.0 BUN/Creatinine Ratio 21.1 Glucose 152 H Calcium 9.0 Total Bilirubin 0.4 Conjugated Bilirubin 0.0 Unconjugated Bilirubin 0.4 AST 31 ALT 33 Alkaline Phosphatase 113 Total Protein 6.5 Albumin 3.6 Globulin 2.9 Albumin/Globulin Ratio 1.2 [facility] Medical History Asthma Biceps tendinitis of right shoulder Eczema Impaired vision Prediabetes Rotator cuff tear, right Family History Mother Myocardial infarction Father Unspecified aircraft accident injuring occupant, sequela Social History household members: spouse and children Smoking Status: Never smoker alcohol intake: current Discharge Plan Discharge Plan Patient Disposition: Home Provider Discharge Comment: Ms. Russo was admitted with a urine infection and two kidney stones. She had stents placed and felt improved. She should complete 2 weeks of antibiotics and is given a prescription for this. She should follow up with Dr. Cannon within one week. Discharge orders & Medications Prescriptions: New cefpodoxime 200 mg tablet 200 mg PO BID Qty: 26 0RF Rx Instructions: must administer with a meal/food oxycodone 5 mg Tablet 5 mg PO Q6HR PRN (Reason: pain) Qty: 6 0RF Continued loratadine 10 mg Tablet 10 mg PO DAILY 0RF Advair HFA 115-21 mcg/actuation Hfa Aerosol Inhaler 2 puff INHALATION BID 0RF Follow up/Referrals: Burt Cannon MD [Physician] - (follow up in one week per Dr. Cannon) Diet/Activity/Treatments Diet: Regular Visit Report/Discharge Packet Instructions: Oxycodone, Ureteral Stent Placement Quality VTE Deep Vein Thrombosis/Pulmonary Embolism Present on Admission: No
== END 2021-10-11 15:25 | disposition home or self-care (01) | DRG 690 ==
PROVIDERS: Nurse Practitioner Family; Specialist; Admitting Provider Internal Medicine; Referring Provider Internal Medicine; Visit Provider Internal Medicine
PROC: 0T9780Z Drainage of Left Ureter with Drainage Device, Via Natural or Artificial Opening Endoscopic (ICD-10-PCS; principal; 2021-10-10 14:00)
DX: N13.6 Pyonephrosis (principal); B96.20 Unspecified Escherichia coli [E. coli] as the cause of diseases classified elsewhere; J45.909 Unspecified asthma, uncomplicated; Z20.822 Contact with and (suspected) exposure to COVID-19
CPT/HCPCS: 36415; 52330; 52332; 74018; 74176; 76000; 80048; 80076; 82962; 84145; 85025; 85027; 94762; 99222; J0696; J1100; J1885; J2250; J2270; J2405; J2704; J3010

== ENCOUNTER → 2021-10-24 10:29 | Outpatient (CLI) | payer OTHER, SELFPAY ==
[2021-10-09 17:37] VITALS: BMI 30.7
--- NOTE | 2021-10-24 10:32 | DI.RAD.S_ITS ---
PROCEDURE: XR KUB INDICATIONS: Kidney stone TECHNIQUE: One view of the abdomen acquired. COMPARISON: [facility], CR, XR ABDOMEN 1V, 10/10/2021, 17:30. [facility], CT, CT KIDNEY URETER BLADDER (KUB), 10/10/2021, 7:52. FINDINGS: Surgical changes and devices: There is a left ureteral stent in expected position. Bowel: Bowel gas pattern is normal. Soft tissues: Small stones are suspected in the inferior pole of the left kidney although overlapping stool contents are present. The left UPJ stone seen on the comparison CT is not visualized. Visualized solid organ contours appear normal in size. Bones: No suspicious bony lesions. IMPRESSION: Suspect small stones in the inferior pole of the left kidney. Dictated by: Dorothea Corrales M.D. on 10/24/2021 at 16:10 Approved by: Dorothea Corrales M.D. on 10/24/2021 at 16:12
== END ==
PROVIDERS: Referring Provider Specialist; Visit Provider Specialist
DX: N20.2 Calculus of kidney with calculus of ureter (principal); R30.0 Dysuria; Z87.440 Personal history of urinary (tract) infections
CPT/HCPCS: 74018; 81002; 87086; 99215

== ENCOUNTER → 2021-10-24 12:44 | Outpatient (CLI) | payer OTHER, SELFPAY ==
[2021-10-09 17:37] VITALS: BMI 30.7
== END ==
PROVIDERS: Visit Provider Specialist
DX: R30.0 Dysuria (principal)
CPT/HCPCS: 87086

== ENCOUNTER → 2021-11-10 14:13 | Outpatient (CLI) | payer OTHER, SELFPAY ==
[2021-11-03 12:39] VITALS: BMI 30.7
[2021-11-10 15:00] LABS: COVID19 -Nasal RAPID Negative (Negative)
== END ==
PROVIDERS: PCP Student in an Organized Health Care Education/Training Program; Visit Provider Specialist
DX: Z20.822 Contact with and (suspected) exposure to COVID-19 (principal)
CPT/HCPCS: 87635; C9803

== ENCOUNTER 2021-11-13 09:03 | Day surgery (SDC) | payer OTHER, SELFPAY ==
[2021-11-03 12:39] VITALS: BMI 30.7
[2021-11-10 07:55] VITALS: BMI 31.1
--- NOTE | 2021-11-13 | DI.RAD.S_ITS ---
PROCEDURE: XR ABDOMEN 1V INDICATIONS: LT STENT PLACEMENT TECHNIQUE: Single intraoperative fluoroscopic view of the abdomen acquired. COMPARISON: [facility], CR, XR ABDOMEN 1V, 10/10/2021, 17:30. FINDINGS: Intraoperative fluoroscopic image of left abdomen shows left ureteral stent in place. IMPRESSION: Fluoro guidance was provided intraoperatively for left-sided ureteral stent placement. Dictated by: Anibal Ramirez M.D. on 11/13/2021 at 12:22 Approved by: Anibal Ramirez M.D. on 11/13/2021 at 12:23
--- NOTE | 2021-11-13 09:39 | PM.PREOP ---
Pre-operative Note COVID-19 Criteria for continued procedure: Possibility delay results in more complex future surgery or treatment, Continuing or worsening of significant or severe pain, Delay expected to result in less-positive ultimate med/surg outcome and Non-surgical alternatives not available or appropriate per current SOC Interval Note History & Physical reviewed/Exam performed by Physician: Yes Changes to H&P: No
[2021-11-13 09:43] VITALS: BP 139/80; PULSE 81; RESP 16; TEMP 37; O2SAT 96; BMI 31.1
[2021-11-13] MEDS: LACTATED RINGERS 1,000 ML 42 ML IV (09:52)
[2021-11-13] MEDS: CEFAZOLIN 2 GM/20 ML SYRINGE IV (10:30)
--- NOTE | 2021-11-13 10:45 | SUR.OPER ---
Lithotomy on padded OR bed, head on pillow, arms secured on padded arm boards at <90 degrees abduction. Legs secured in padded yellow fins stirrups.
[2021-11-13] MEDS: IOPAMIDOL 15 ML VIAL INJ (10:48)
[2021-11-13] MEDS: BELLADONNA/OPIUM SUPPOSITORIES 1 EACH PR (10:48)
--- NOTE | 2021-11-13 11:20 | P.OP_ITS ---
Operative Date/Time/Diagnoses Date of procedure: 11/13/21 Time of procedure: 11:20 Pre-op diagnosis: 1. Obstructing left distal ureteral calculus. 2. History of UTI. 3. Left retained ureteral stent. Post-op diagnosis: other (There were 2 distinct stones juxtaposed in the distal 3rd of the left ureter.) Procedure & Clinicians Procedure: 1. Cystoscopy/left ureteroscopic laser lithotripsy x2. 2. Cystoscopy/left ureteral stent exchange (6 Japanese by 22-32 cm multi-length). Same procedure as scheduled: Yes Indications: 1. Obstructing left distal ureteral calculus. 2. History of UTI. 3. Retained left ureteral stent Click Yes if Unassisted: Yes Anesthesia Type: General Operative Notes Findings: 1. Urethra-patulous meatus and normal caliber urethra. 2. Bladder-severe bullous edema and erythema of the left leonardo ureteral orifice and intramural ureter. 3. Left ureter severe mucosal edema in the vicinity of the 2 index calculi. Closure Type: not applicable Specimen(s): other (Stone fragments from left ureter.) Applied: other (Six Japanese by 22-32 cm multi-length stent) Estimated Blood Loss (mL): 2 Blood products transfused: none Procedure in detail: The patient was positioned in supine was administered general anesthesia. She was then repositioned semi lithotomy and the lower abdomen, genitalia, and groin were then prepped and draped in sterile fashion. The 22 Japanese panendoscope was then passed lower urinary tract with findings as described above. A form body grasper was then utilized to engage the distal end of the left ureteral stent and then withdrawn so the coil was positioned at the perineum. A 0.35 guidewire was then advanced in the lumen of the left ureteral stent post not able be passed due to encrustations. The panendoscope was reintroduced and the 0.35 hybrid guidewire was then successfully advanced into the left ureter under direct and fluoroscopic guidance. The panendoscope was backloaded off the wire and the wire was secured to the surgical drape. The semi rigid ureteral scope was then prepared was passed the lower urinary tract and then into the left distal ureter. Two individual spiculated calculi of or found line adjacent to 1 another at about the midportion of left distal ureter. A 200 micron laser was requested and all operating room personnel and patient were fitted with laser safety eyewear. Laser lithotripsy was then commenced with excellent resultant fragmentation. Hydrostatic and mechanical agitation within utilized to free the ureteral lumen of stone fragments. Ureteral scope was then removed after final examination of the ureter proximally. The 22 Japanese panendoscope was then prepared and position in the bladder after front loading it over the hybrid guidewire. A 6 Japanese by 22-32 cm multi-length stent was then selected and advanced over the hybrid guidewire under direct and fluoroscopic guidance. A RETRIEVAL LINE WAS LEFT ATTACHED. The bladder was then drained completely. The panendoscope was then removed. The retrieval line was trimmed to an appropriate length distal to the urethral meatus. Small globules of clot x2 were retrieved from the drain screen containing stone fragments. The specimens were then submitted for crystallographic analysis. The patient was then repositioned in supine, was awakened, was transferred to a gurney and then transported recovery in stable condition. Complications: none Post-operative Condition: stable Disposition: PACU Plan for aftercare: Discharge home.
[2021-11-13 11:24] VITALS: BP 135/76; PULSE 82; RESP 16; TEMP 36.1; O2SAT 97
[2021-11-13 11:31] VITALS: BP 135/80; PULSE 78; RESP 16; O2SAT 94
[2021-11-13 11:34] VITALS: BP 146/74; PULSE 92; RESP 12; O2SAT 95
[2021-11-13 11:40] VITALS: BP 140/82; PULSE 95; RESP 12; O2SAT 95
[2021-11-13 12:26] VITALS: BP 138/83; PULSE 74; RESP 16; TEMP 36.6; O2SAT 96
[2021-11-17 10:21] LABS: Ca oxalate monohydr 70 % (.); Hydroxyapatite 30 % (.)
== END 2021-11-13 12:30 | disposition home or self-care (01) ==
PROVIDERS: PCP Student in an Organized Health Care Education/Training Program; Referring Provider Specialist; Visit Provider Specialist
PROC: 0TF78ZZ Fragmentation in Left Ureter, Via Natural or Artificial Opening Endoscopic (ICD-10-PCS; CPT 52353; principal; 2021-11-13 10:15)
DX: N20.1 Calculus of ureter (principal); Z87.440 Personal history of urinary (tract) infections
CPT/HCPCS: 52356; 74018; 76000; 82365; J0690; J2704; J3010

== ENCOUNTER 2021-11-15 02:50 | Emergency (ER) | payer OTHER, SELFPAY ==
[2021-11-03 12:39] VITALS: BMI 30.7
[2021-11-15 03:05] VITALS: BP 136/62; PULSE 98; RESP 20; TEMP 37.7; O2SAT 94
[2021-11-15 03:13] LABS: Appearance Urine UA CLEAR; Bilirubin Urine UA NEGATIVE (NEGATIVE); Color Urine UA YELLOW; Glucose Urine UA NEGATIVE (Negative); Ketones Urine UA 2+ (NEGATIVE); Leukocyte Esterase Urine UA 3+ (NEGATIVE); Nitrite Urine UA NEGATIVE (Negative); Occult Blood Urine UA 3+ (Negative); Protein Urine UA 1+ (Negative); Specific Gravity Urine UA 1.015 (1.000-1.035); Urobilinogen Urine UA 0.2 E.U./dL (0.2)
--- NOTE | 2021-11-15 03:13 | ED.BACK ---
HPI - Back Pain/Injury General Chief Complaint: Back Pain/Injury Stated Complaint: PAIN, SHAKING Time Seen by Provider: 11/15/21 03:00 Source: patient Mode of arrival: Ambulatory History of Present Illness HPI Narrative: Patient is a 60-year-old female. Two days ago had a lithotripsy with stent placement secondary to ureteral stones. That was performed here at this facility. Was discharged home. No antibiotics administered. She states that since that time she has had somewhat of an increase in pain in her left side and lower back. She is concerned about an infection. She has also had shaking and chills at home. Some nausea no vomiting. No change in bowel habits. Related Data Home Medications Medication Instructions Recorded Confirmed loratadine 10 mg tablet 10 mg PO DAILY PRN 02/12/18 11/13/21 fluticasone propionate 115 2 puff INHALATION BID 10/09/21 11/13/21 mcg-salmeterol 21 mcg/actuation HFA inhaler (Advair HFA) Previous Rx's Medication Instructions Recorded oxycodone 5 mg tablet 5 mg PO Q4H PRN #14 tab 11/13/21 Allergies Allergy/AdvReac Type Severity Reaction Status Date / Time Sulfa (Sulfonamide Allergy Unknown Hives, Verified 11/13/21 09:31 Antibiotics) rash, swelling tamsulosin AdvReac Mild Makes her Verified 11/13/21 09:33 jittery Review of Systems Review of Systems ROS Unobtainable: All systems reviewed & are unremarkable except as noted in HPI and below Patient History Medical History Asthma Biceps tendinitis of right shoulder Eczema History of UTI Impaired vision Kidney stones Left ureteral calculus Prediabetes Renal calculus, left Rotator cuff tear, right Surgical History (Updated 11/10/21 @ 08:05 by Jana Strange RN) History of History of cystoscopy Tubal ligation status Family History Mother Myocardial infarction Father Unspecified aircraft accident injuring occupant, sequela Kidney stones Social History marital status: number of children: 5 household members: spouse and children Smoking Status: Never smoker alcohol intake: former Smoking Status: Never smoker alcohol intake frequency: holidays/special occasions only Substance Use Type: does not use Exam Initial Vital Signs Initial Vital Signs: Vital Signs Temperature 99.8 F H 11/15/21 03:05 Pulse Rate 98 H 11/15/21 03:05 Respiratory Rate 20 11/15/21 03:05 Blood Pressure 136/62 11/15/21 03:05 Pulse Oximetry 94 11/15/21 03:05 HENMT Head: normal to inspection and normocephalic Resp Effort & Inspection: normal respiratory effort Auscultation: clear to auscultation bilaterally Cardio Rate: regular rate Rhythm: regular rhythm GI Inspection: normal to inspection Palpation: tender (Lower abdomen) Back/Spine/Pelvis Other: Mild discomfort to palpation bilateral lumbar region Skin General: no rashes or lesions noted Extrem General: normal to inspection and capillary refill normal Course Orders Ordered: ED Orders 11/15/21 02:56 Urinalysis and Microscopic Stat Urine Culture Stat 11/15/21 03:15 Complete Blood Count AUTO DIFF Stat Comprehensive Metabolic Panel Stat Lactate (Lactic Acid) Stat Lipase Stat 11/15/21 03:39 Blood Culture Stat Discontinued Medications Ketorolac Tromethamine (Ketorolac 30 Mg/Ml Vial) 30 mg IV NOW ONE Stop: 11/15/21 04:43 Morphine Sulfate (Morphine 4 Mg/Ml Inj) 4 mg IV NOW ONE Stop: 11/15/21 03:14 Last Admin: 11/15/21 03:29 Dose: 4 mg Documented by: CHRISTOPHER Vital Signs Vital signs: Vital Signs - 8 hr 11/15/21 03:05 Temperature 99.8 F H Pulse Rate 98 H Respiratory Rate 20 Blood Pressure 136/62 Pulse Oximetry 94 MDM - Back Pain/Injury Lab Data Attestation: I reviewed the patient's lab results. Result diagrams: 11/15/21 03:15 11/15/21 03:15 Labs: Lab Results 11/15/21 11/15/21 11/15/21 Range/Units 02:56 03:15 03:15 WBC 9.3 (4.5-11.0) X10^3/uL RBC 4.46 (4.0-5.2) X10^6/uL Hgb 12.6 (12.0-16.0) g/dL Hct 37.3 (36-46) % MCV 83.6 (80-100) fL MCH 28.2 (26-34) PG MCHC 33.7 (30-36) % RDW 14.4 (11.6-14.8) % Plt Count 255 (150-400) X10^3/uL Neut % (Auto) 89.8 H (50-75) % Lymph % (Auto) 3.1 L (25-40) % Cottle % (Auto) 6.5 (3-14) % Eos % (Auto) 0.5 L (2-4) % Baso % (Auto) 0.1 (0-2) % Neut # (Auto) 8400 H (6325-6530) /uL Lymph # (Auto) 300 L (9260-1997) /uL Cottle # (Auto) 600 (0-900) /uL Eos # (Auto) 100 (0-450) /uL Baso # (Auto) 0 (0-100) /uL Sodium 135 L (137-145) mmol/L Potassium 3.5 (3.4-5.1) mmol/L Chloride 104 (98-107) mmol/L Carbon Dioxide 24 (22-32) mmol/L BUN 17 (7-17) mg/dL Creatinine 0.71 (0.52-1.04) mg/dL Estimated GFR > 60.0 (>60) mL/min BUN/Creatinine Ratio 23.9 H (6-22) Glucose 122 H (80-110) mg/dL Lactate (0.7-2.1) mmol/L Calcium 9.2 (8.4-10.2) mg/dL Total Bilirubin 0.8 (0.2-1.3) mg/dL AST 25 (14-36) IU/L ALT 29 (<35) IU/L Alkaline Phosphatase 109 (38-126) U/L Total Protein 7.8 (6.3-8.2) g/dL Albumin 4.4 (3.5-5.0) g/dL Globulin 3.4 (1.7-4.1) g/dL Albumin/Globulin Ratio 1.3 (1.0-2.8) Lipase 59 (23-300) U/L Urine Color Yellow Urine Appearance Clear Urine pH 5.5 (4.5-8.0) Ur Specific [place] 1.015 (1.000-1.035) Urine Protein 1+ H (Negative) Urine Glucose (UA) Negative (Negative) g/dL Urine Ketones 2+ H (NEGATIVE) Urine Occult Blood 3+ H (Negative) Urine Nitrate Negative (Negative) Urine Bilirubin Negative (NEGATIVE) Urine Urobilinogen 0.2 (0.2) E.U./dL Ur Leukocyte Esterase 3+ H (NEGATIVE) Urine RBC 5-10/hpf H (0-5/HPF) Urine WBC 10-30/hpf H (0-5/HPF) Ur Squamous Epith Cells 0-1 /hpf (0-5/HPF) Urine Bacteria Few (2-10) H (None) Ur Culture Indicated? Culture not indicate Micro UA Comment * 11/15/21 Range/Units 03:15 WBC (4.5-11.0) X10^3/uL RBC (4.0-5.2) X10^6/uL Hgb (12.0-16.0) g/dL Hct (36-46) % MCV (80-100) fL MCH (26-34) PG MCHC (30-36) % RDW (11.6-14.8) % Plt Count (150-400) X10^3/uL Neut % (Auto) (50-75) % Lymph % (Auto) (25-40) % Cottle % (Auto) (3-14) % Eos % (Auto) (2-4) % Baso % (Auto) (0-2) % Neut # (Auto) (8897-7014) /uL Lymph # (Auto) (9568-4862) /uL Cottle # (Auto) (0-900) /uL Eos # (Auto) (0-450) /uL Baso # (Auto) (0-100) /uL Sodium (137-145) mmol/L Potassium (3.4-5.1) mmol/L Chloride (98-107) mmol/L Carbon Dioxide (22-32) mmol/L BUN (7-17) mg/dL Creatinine (0.52-1.04) mg/dL Estimated GFR (>60) mL/min BUN/Creatinine Ratio (6-22) Glucose (80-110) mg/dL Lactate 0.9 (0.7-2.1) mmol/L Calcium (8.4-10.2) mg/dL Total Bilirubin (0.2-1.3) mg/dL AST (14-36) IU/L ALT (<35) IU/L Alkaline Phosphatase (38-126) U/L Total Protein (6.3-8.2) g/dL Albumin (3.5-5.0) g/dL Globulin (1.7-4.1) g/dL Albumin/Globulin Ratio (1.0-2.8) Lipase (23-300) U/L Urine Color Urine Appearance Urine pH (4.5-8.0) Ur Specific [place] (1.000-1.035) Urine Protein (Negative) Urine Glucose (UA) (Negative) g/dL Urine Ketones (NEGATIVE) Urine Occult Blood (Negative) Urine Nitrate (Negative) Urine Bilirubin (NEGATIVE) Urine Urobilinogen (0.2) E.U./dL Ur Leukocyte Esterase (NEGATIVE) Urine RBC (0-5/HPF) Urine WBC (0-5/HPF) Ur Squamous Epith Cells (0-5/HPF) Urine Bacteria (None) Ur Culture Indicated? Micro UA Comment [facility] Narrative Medical decision making narrative: Patient has no leukocytosis. Her kidney functions unremarkable. Patient has leukocyte esterase and white cells and red blood cells in her urine. A culture was ordered. I discussed with her the findings of the urinalysis. We discussed the potential for infection but we also discussed that she just had a procedure done 2 days ago that could explain those findings on her urinalysis. We discussed options to include starting her on antibiotics versus waiting for urine culture to result. We also discussed this in the setting of having no fever, not tachycardic and no white blood cell count also just 2 days after her procedure. After this discussion we opted to hold on any antibiotics for now and wait for the culture. We did discuss things that she could try at home to help with the symptoms to include Tylenol and ibuprofen. She did not want any opioid pain medication. We did discuss strict return precautions. Informed her that she needed to contact her urologist for a follow-up when the office opens today. She expressed understanding and agreement. Discharge Plan Departure Patient Disposition: Home Clinical Impression: Post-operative pain Activity Restrictions/Additional Instructions: It is important that you follow all of the postoperative instructions given to you by the urologist. A urine culture was pending today at the time of your discharge. We will wait on starting any antibiotics until this culture results. I do recommend that you contact your urologist office on the open later today. They can review all of the labs that were performed today. You can take Tylenol and ibuprofen (or another nonsteroidal anti-inflammatories such as Advil) to help with your discomfort. Please return to the emergency department for any new or worsening symptoms. Prescriptions: No Action loratadine 10 mg Tablet 10 mg PO DAILY PRN (Reason: allergies) 0RF Label Comments: uses seasonally oxycodone 5 mg tablet 5 mg PO Q4H PRN (Reason: pain) Qty: 14 0RF Advair HFA 115-21 mcg/actuation Hfa Aerosol Inhaler 2 puff INHALATION BID 0RF Referrals: Yadira Del Rosario MD [Primary Care Provider] -
[2021-11-15 03:16] LABS: pH Urine UA 5.5 (4.5-8.0)
[2021-11-15] MEDS: MORPHINE 4 MG/ML INJ IV (03:29)
[2021-11-15 03:33] LABS: Add Manual Diff / Slide Review NO; Basophils Absolute Auto 0 /uL (0-100); Basophils Percent Auto 0.1 % (0-2); Eosinophils Absolute Auto 100 /uL (0-450); Eosinophils Percent Auto 0.5 % (2-4); Hematocrit 37.3 % (36-46); Hemoglobin 12.6 g/dL (12.0-16.0); Lymphocytes Absolute Auto 300 /uL (1100-4500); Lymphocytes Percent Auto 3.1 % (25-40); Mean Corpuscular HGB Conc 33.7 % (30-36); Mean Corpuscular Hemoglobin 28.2 PG (26-34); Mean Corpuscular Volume 83.6 fL (80-100); Monocytes Absolute Auto 600 /uL (0-900); Monocytes Percent Auto 6.5 % (3-14); Neutrophils Absolute Auto 8400 /uL (1500-7000); Neutrophils Percent Auto 89.8 % (50-75); Platelet Count 255 X10^3/uL (150-400); Red Blood Cell Count 4.46 X10^6/uL (4.0-5.2); Red Cell Distribution Width 14.4 % (11.6-14.8); White Blood Cell Count 9.3 X10^3/uL (4.5-11.0)
[2021-11-15 03:39] LABS: Bacteria Urine Few (2-10); RBC Urine 5-10/HPF (0-5/HPF); Squamous Epithelial Cell Urine 0-1 /HPF (0-5/HPF); WBC Urine 10-30/HPF (0-5/HPF)
[2021-11-15 03:41] LABS: Lactate (Lactic Acid) 0.9 mmol/L (0.7-2.1)
[2021-11-15 03:43] LABS: Alanine Aminotransferase 29 IU/L (<35); Albumin 4.4 g/dL (3.5-5.0); Albumin Globulin Ratio 1.3 (1.0-2.8); Alkaline Phosphatase 109 U/L (38-126); Aspartate Aminotransferase 25 IU/L (14-36); BUN Creatinine Ratio 23.9 (6-22); Bilirubin Total 0.8 mg/dL (0.2-1.3); Blood Urea Nitrogen 17 mg/dL (7-17); Calcium 9.2 mg/dL (8.4-10.2); Carbon Dioxide 24 mmol/L (22-32); Chloride 104 mmol/L (98-107); Estimated Glomerular Filt Rate > 60.0 mL/min (>60); Globulin 3.4 g/dL (1.7-4.1); Glucose 122 mg/dL (80-110); HEMOLYSIS < 15 (0-50); Lipase 59 U/L (23-300); Potassium 3.5 mmol/L (3.4-5.1); Sodium 135 mmol/L (137-145); Total Protein 7.8 g/dL (6.3-8.2)
[2021-11-15] MEDS: KETOROLAC 30 MG/ML VIAL IV (04:48)
[2021-11-15 05:12] VITALS: BP 129/59; PULSE 97; RESP 20; O2SAT 96
[2021-11-15 21:43] LABS: Enterococcus species Detected (Not Detect); Listeria monocytogenes Not Detected (Not Detect); Staphylococcus species Not Detected (Not Detect); Vancomycin-rest genes A/B Not Detected (Not Detect)
[2021-11-15 21:44] LABS: Acinetobacter baumannii Not Detected (Not Detect); E. coli Not Detected (Not Detect); Enterobacter cloacae complex Not Detected (Not Detect); Enterobacteriaceae species Not Detected (Not Detect); Haemophilus influenzae Not Detected (Not Detect); Neisseria meningitidis Not Detected (Not Detect); Proteus species Not Detected (Not Detect); Pseudomonas aeruginosa Not Detected (Not Detect); Serratia marcescens Not Detected (Not Detect); Streptococcus agalactiae (Gr B Not Detected (Not Detect); Streptococcus pneumonia Not Detected (Not Detect); Streptococcus pyogenes (Gr A) Not Detected (Not Detect); Streptococcus species Not Detected (Not Detect)
[2021-11-15 21:45] LABS: Candida albicans Not Detected (Not Detect); Candida glabrata Not Detected (Not Detect); Candida krusei Not Detected (Not Detect); Candida parapsilosis Not Detected (Not Detect); Candida tropicalis Not Detected (Not Detect)
== END 2021-11-15 05:15 | disposition home or self-care (01) ==
PROVIDERS: Emergency Provider Emergency Medicine; PCP Student in an Organized Health Care Education/Training Program
DX: G89.18 Other acute postprocedural pain (principal)
CPT/HCPCS: 36415; 80053; 81001; 83605; 83690; 85025; 87040; 87086; 87150; 87205; J1885; J2270

== ENCOUNTER 2021-11-15 22:06 | Inpatient (IN) | payer OTHER, SELFPAY ==
[2021-11-03 12:39] VITALS: BMI 30.7
[2021-11-15 22:22] VITALS: BP 121/58; PULSE 94; RESP 22; TEMP 38.1; O2SAT 100
--- NOTE | 2021-11-15 22:26 | DI.RAD.S_ITS ---
PROCEDURE: XR CHEST 1V INDICATIONS: suspected sepsis TECHNIQUE: One view of the chest was acquired. COMPARISON: None. FINDINGS: Surgical changes and devices: None. Lungs and pleura: Lungs are clear. No pleural effusions or pneumothorax. Mediastinum: Mediastinal contours appear normal. Heart size is normal. Bones and chest wall: No suspicious bony lesions. Overlying soft tissues appear unremarkable. IMPRESSION: No acute process. Dictated by: Josemanuel Mcneal M.D. on 11/15/2021 at 23:08 Approved by: Josemanuel Mcneal M.D. on 11/15/2021 at 23:08
[2021-11-15] MEDS: SODIUM CHLORIDE 0.9% 1,000 ML 1000 ML IV (22:41)
[2021-11-15 22:43] LABS: Add Manual Diff / Slide Review NO; Basophils Absolute Auto 0 /uL (0-100); Basophils Percent Auto 0.4 % (0-2); Eosinophils Absolute Auto 0 /uL (0-450); Eosinophils Percent Auto 0.1 % (2-4); Hematocrit 36.3 % (36-46); Hemoglobin 12.2 g/dL (12.0-16.0); Lymphocytes Absolute Auto 300 /uL (1100-4500); Lymphocytes Percent Auto 2.4 % (25-40); Mean Corpuscular HGB Conc 33.6 % (30-36); Mean Corpuscular Hemoglobin 28.3 PG (26-34); Mean Corpuscular Volume 84.1 fL (80-100); Monocytes Absolute Auto 1100 /uL (0-900); Monocytes Percent Auto 8.3 % (3-14); Neutrophils Absolute Auto 11400 /uL (1500-7000); Neutrophils Percent Auto 88.8 % (50-75); Platelet Count 241 X10^3/uL (150-400); Red Blood Cell Count 4.32 X10^6/uL (4.0-5.2); Red Cell Distribution Width 14.4 % (11.6-14.8); White Blood Cell Count 12.9 X10^3/uL (4.5-11.0)
[2021-11-15 22:46] LABS: Lactate (Lactic Acid) 0.8 mmol/L (0.7-2.1)
[2021-11-15 22:49] LABS: Alanine Aminotransferase 40 IU/L (<35); Albumin 4.3 g/dL (3.5-5.0); Albumin Globulin Ratio 1.3 (1.0-2.8); Alkaline Phosphatase 113 U/L (38-126); Aspartate Aminotransferase 37 IU/L (14-36); BUN Creatinine Ratio 18.7 (6-22); Bilirubin Total 1.4 mg/dL (0.2-1.3); Blood Urea Nitrogen 14 mg/dL (7-17); Calcium 9.4 mg/dL (8.4-10.2); Carbon Dioxide 22 mmol/L (22-32); Chloride 99 mmol/L (98-107); Estimated Glomerular Filt Rate > 60.0 mL/min (>60); Globulin 3.4 g/dL (1.7-4.1); Glucose 153 mg/dL (80-110); HEMOLYSIS < 15 (0-50); Lipase 31 U/L (23-300); Potassium 3.3 mmol/L (3.4-5.1); Sodium 129 mmol/L (137-145); Total Protein 7.7 g/dL (6.3-8.2)
[2021-11-15 22:59] LABS: COVID19 -Nasal RAPID Negative (Negative)
[2021-11-15 23:03] VITALS: PULSE 92; O2SAT 90
[2021-11-15 23:04] LABS: Procalcitonin 0.86 ng/mL (<0.5)
--- NOTE | 2021-11-15 23:13 | ED.RECABL ---
HPI - Recheck/Abnormal Lab/Rx General Chief Complaint: Recheck/Abnormal Lab/Rx Stated Complaint: + Blood Cultures Time Seen by Provider: 11/15/21 22:59 Source: patient Mode of arrival: Ambulatory History of Present Illness HPI narrative: Patient seen here last night for flank pain. Status post left ureteral stent and lithotripsy with Dr. Cannon here. Scheduled to have ureteral stent removed in 2 days. Blood cultures positive from last night.. Patient returns here with fever and elevated white cell count. Was discharged last night on Cipro. Patient and do not want repeat CT scan. Had 2 in the last 2 months. Related Data Home Medications Medication Instructions Recorded Confirmed loratadine 10 mg tablet 10 mg PO DAILY PRN 02/12/18 11/16/21 fluticasone propionate 115 2 puff INHALATION BID 10/09/21 11/16/21 mcg-salmeterol 21 mcg/actuation HFA inhaler (Advair HFA) Previous Rx's Medication Instructions Recorded oxycodone 5 mg tablet 5 mg PO Q4H PRN #14 tab 11/13/21 ciprofloxacin HCl 250 mg tablet 250 mg PO BID #10 tab 11/15/21 (Cipro) Allergies Allergy/AdvReac Type Severity Reaction Status Date / Time Sulfa (Sulfonamide Allergy Unknown Hives, Verified 11/13/21 09:31 Antibiotics) rash, swelling tamsulosin AdvReac Mild Makes her Verified 11/13/21 09:33 jittery Review of Systems Review of Systems Narrative: GENERAL: Positive for fatigue, malaise, fever, sweats. HEENT: Denies sinus pain, ear pain, sore throat RESPIRATORY: Denies dyspnea, cough CARDIOVASCULAR: Denies chest pain, palpitations GASTROINTESTINAL: Denies nausea, vomiting, abdominal pain : Positive for flank pain MUSCULOSKELETAL: denies muscle or bony pain SKIN: Denies rash, skin lesions NEUROLOGIC: Denies weakness, numbness ROS Unobtainable: All systems reviewed & are unremarkable except as noted in HPI and below Patient History Medical History Asthma Biceps tendinitis of right shoulder Eczema History of UTI Impaired vision Kidney stones Left ureteral calculus Prediabetes Renal calculus, left Rotator cuff tear, right Surgical History History of History of cystoscopy Tubal ligation status Family History Mother Myocardial infarction Father Unspecified aircraft accident injuring occupant, sequela Kidney stones Social History marital status: number of children: 5 household members: spouse and children Smoking Status: Never smoker alcohol intake: former Smoking Status: Never smoker alcohol intake frequency: holidays/special occasions only Substance Use Type: does not use Exam Narrative Exam Narrative: GENERAL: in no distress, not toxic not dyspneic HEAD: Normocephalic. EYES: Pupils equal round No scleral icterus. NECK: Trachea midline. CARDIOVASCULAR: Regular rate and rhythm without murmurs RESPIRATORY: Clear to auscultation. Breath sounds equal bilaterally. No wheezes, rales, or rhonchi. GASTROINTESTINAL: Abdomen soft, non-tender, normal bowel sounds, no peritoneal signs EXTREMITIES: No gross deformities. BACK: Left CVA tenderness present NEURO: AOx4. SKIN: Warm and dry PSYCH: Not anxious, is cooperative Initial Vital Signs Initial Vital Signs: Vital Signs Temperature 100.5 F H 11/15/21 22:22 Pulse Rate 94 H 11/15/21 22:22 Respiratory Rate 22 11/15/21 22:22 Blood Pressure 121/58 L 11/15/21 22:22 Pulse Oximetry 100 11/15/21 22:22 Course Course Decision to Admit Date: 11/15/21 Decision to Admit time: 23:40 Orders Ordered: ED Orders 11/15/21 22:26 XR chest 1V Stat Blood Culture Stat EKG-12 Lead Stat RT Consult Eval and Treat NOW 11/15/21 22:30 Complete Blood Count AUTO DIFF Stat Comprehensive Metabolic Panel Stat Lactate (Lactic Acid) Stat Lipase Stat Procalcitonin Stat 11/15/21 22:42 COVID19 -Nasal swab/Pre-Proc Stat 11/15/21 23:38 CT abdomen pelvis w con Stat Discontinued Medications Acetaminophen (Acetaminophen 325 Mg Tablet) 975 mg PO NOW ONE Stop: 11/15/21 23:25 Last Admin: 11/15/21 23:51 Dose: 975 mg Documented by: NAYA Sodium Chloride (Normal Saline 0.9%) 1,000 mls @ 1,000 mls/hr IV BOLUS ONE Stop: 11/15/21 23:25 Last Infusion: 11/16/21 01:20 Dose: 0 mls/hr Documented by: Admin: 11/15/21 22:41 Dose: 1,000 mls/hr Documented by: NAYA Levofloxacin (Levaquin) 750 mg in 150 mls @ 100 mls/hr IV NOW ONE Stop: 11/16/21 00:49 Last Infusion: 11/16/21 01:35 Dose: 0 mls/hr Documented by: Admin: 11/15/21 23:51 Dose: 100 mls/hr Documented by: NAYA Reevaluation(s) Reevaluation #1: Spoke with patient and . Agree for admit. They understand need for CT scan repeated to rule out abscess. Time: 23:41 Consultations Consultation #1: Spoke with Dr. Cannon, urology. Admit to hospitalist. Order CT abdomen pelvis to rule abscess. He will see patient morning and review CT scan. Time: 23:40 Vital Signs Vital signs: Vital Signs - 8 hr 11/15/21 22:22 Temperature 100.5 F H Pulse Rate 94 H Respiratory Rate 22 Blood Pressure 121/58 L Pulse Oximetry 100 MDM - Recheck/Abnormal Lab/Rx Differential Diagnosis Differential diagnosis: Likely other (Pyelonephritis/urosepsis) Lab Data Result diagrams: 11/15/21 22:30 11/15/21 22:30 Labs: Lab Results 11/15/21 11/15/21 11/15/21 Range/Units 22:30 22:30 22:30 WBC 12.9 H (4.5-11.0) X10^3/uL RBC 4.32 (4.0-5.2) X10^6/uL Hgb 12.2 (12.0-16.0) g/dL Hct 36.3 (36-46) % MCV 84.1 (80-100) fL MCH 28.3 (26-34) PG MCHC 33.6 (30-36) % RDW 14.4 (11.6-14.8) % Plt Count 241 (150-400) X10^3/uL Neut % (Auto) 88.8 H (50-75) % Lymph % (Auto) 2.4 L (25-40) % [place] % (Auto) 8.3 (3-14) % Eos % (Auto) 0.1 L (2-4) % Baso % (Auto) 0.4 (0-2) % Neut # (Auto) 39564 H (3330-6497) /uL Lymph # (Auto) 300 L (6608-3949) /uL [place] # (Auto) 1100 H (0-900) /uL Eos # (Auto) 0 (0-450) /uL Baso # (Auto) 0 (0-100) /uL Sodium 129 L (137-145) mmol/L Potassium 3.3 L (3.4-5.1) mmol/L Chloride 99 (98-107) mmol/L Carbon Dioxide 22 (22-32) mmol/L BUN 14 (7-17) mg/dL Creatinine 0.75 (0.52-1.04) mg/dL Estimated GFR > 60.0 (>60) mL/min BUN/Creatinine Ratio 18.7 (6-22) Glucose 153 H (80-110) mg/dL Lactate 0.8 (0.7-2.1) mmol/L Calcium 9.4 (8.4-10.2) mg/dL Total Bilirubin 1.4 H (0.2-1.3) mg/dL AST 37 H (14-36) IU/L ALT 40 H (<35) IU/L Alkaline Phosphatase 113 (38-126) U/L Total Protein 7.7 (6.3-8.2) g/dL Albumin 4.3 (3.5-5.0) g/dL Globulin 3.4 (1.7-4.1) g/dL Albumin/Globulin Ratio 1.3 (1.0-2.8) Lipase 31 (23-300) U/L Procalcitonin 0.86 H (<0.5) ng/mL SARS-CoV-2 (PCR) (Negative) 11/15/21 Range/Units 22:42 WBC (4.5-11.0) X10^3/uL RBC (4.0-5.2) X10^6/uL Hgb (12.0-16.0) g/dL Hct (36-46) % MCV (80-100) fL MCH (26-34) PG MCHC (30-36) % RDW (11.6-14.8) % Plt Count (150-400) X10^3/uL Neut % (Auto) (50-75) % Lymph % (Auto) (25-40) % [place] % (Auto) (3-14) % Eos % (Auto) (2-4) % Baso % (Auto) (0-2) % Neut # (Auto) (7048-1438) /uL Lymph # (Auto) (6598-6399) /uL [place] # (Auto) (0-900) /uL Eos # (Auto) (0-450) /uL Baso # (Auto) (0-100) /uL Sodium (137-145) mmol/L Potassium (3.4-5.1) mmol/L Chloride (98-107) mmol/L Carbon Dioxide (22-32) mmol/L BUN (7-17) mg/dL Creatinine (0.52-1.04) mg/dL Estimated GFR (>60) mL/min BUN/Creatinine Ratio (6-22) Glucose (80-110) mg/dL Lactate (0.7-2.1) mmol/L Calcium (8.4-10.2) mg/dL Total Bilirubin (0.2-1.3) mg/dL AST (14-36) IU/L ALT (<35) IU/L Alkaline Phosphatase (38-126) U/L Total Protein (6.3-8.2) g/dL Albumin (3.5-5.0) g/dL Globulin (1.7-4.1) g/dL Albumin/Globulin Ratio (1.0-2.8) Lipase (23-300) U/L Procalcitonin (<0.5) ng/mL SARS-CoV-2 (PCR) Negative (Negative) Imaging Data Chest x-ray: Radiologist's Impression: [address] [address] XRay Report Signed Patient: Nadege Russo MR#: [id number] : 1960 Acct:[id number] Age/Sex: 60 / F Date of Service: 11/15/21 Loc: ED Accession Number: [id number] ?? Procedure: XR chest 1V Ordering Provider: Francisco Victoria MD PROCEDURE:? XR CHEST 1V ? INDICATIONS:? suspected sepsis ? TECHNIQUE:? One view of the chest was acquired.? ? COMPARISON:? None. ? FINDINGS:? ? Surgical changes and devices:? None.? ? Lungs and pleura:? Lungs are clear.? No pleural effusions or pneumothorax.? ? Mediastinum:? Mediastinal contours appear normal.? Heart size is normal.? ? Bones and chest wall:? No suspicious bony lesions.? Overlying soft tissues appear unremarkable.? ? IMPRESSION:? No acute process. ? ? Dictated by: Josemanuel Mcneal M.D. on 11/15/2021 at 23:08 ? ? Approved by: Josemanuel Mcneal M.D. on 11/15/2021 at 23:08 ? CT scan - abdomen/pelvis: Radiologist's Impression: [address] [address] [address] Scan Report Signed Patient: Nadege Russo MR#: [id number] : 1960 Acct:[id number] Age/Sex: 60 / F Date of Service: 11/15/21 Loc: 90A-1 Accession Number: [id number] ?? Procedure: CT abdomen pelvis w con Ordering Provider: Francisco Victoria MD PROCEDURE:? CT ABDOMEN PELVIS W CON ? INDICATIONS:? left flank pain ? TECHNIQUE:? After the administration of intravenous contrast, axial sections acquired from the lung bases to the pubic symphysis.? Coronal and sagittal reformats were performed.? For radiation dose reduction, the following was used:? automated exposure control, adjustment of mA and/or kV according to patient size.? ? COMPARISON:? [facility], RG, CT ABDOMEN/PELVIS WITH CONTRAST, 10/09/2021, 7:37.? [facility], CT, CT KIDNEY URETER BLADDER (KUB), 10/10/2021, 7:52. ? FINDINGS:? Image quality:? Excellent.? ? Lung bases:? Unremarkable. Heart:? No significant findings. ? ABDOMEN: Liver:? Unremarkable.? ? Gallbladder:? Unremarkable.? ? Biliary ducts:? Unremarkable.? ? Pancreas:? Unremarkable.? ? Spleen:? Multifocal nodular densities Adrenal Glands:? Unremarkable.? ? Kidneys and Ureters:? There is mild increased left perinephric fat stranding.? Multifocal wedge-shaped regions of hypodensity within the left interpolar and superior pole kidney.? Right kidney is grossly unremarkable.? Nonobstructing curvilinear calculus within the inferior pole left kidney measuring 10 mm diameter, new since the prior examination.? Left ureteral stent is present.? There is mild left hydronephrosis and left ureteral dilatation.? No right hydronephrosis.? Urinary bladder grossly unremarkable. ? Stomach and Bowel:? Small hiatal hernia.? Stomach, small bowel loops, and colon are unremarkable.? Appendix not seen.? No evidence of appendicitis. Peritoneum:? No abnormal intraperitoneal fluid.? No free air.? ? Ventral Wall: ? No hernias.? Abdominal Nodes:? No retroperitoneal or mesenteric adenopathy by size criteria.? Vessels:? Aorta and inferior vena cava are normal in size.? ? PELVIS: Pelvic Organs:? Unremarkable.? ? Bladder:? Unremarkable.? ? Pelvic Nodes: No enlarged lymph nodes.? Miscellaneous: No hernias are seen. ? ? ? Bones:? Unremarkable.? IMPRESSION:? 1. Findings suggestive of left-sided pyelonephritis.? Correlation with urinalysis recommended. 2. Mild left hydronephrosis.? Left ureteral stent placement. 3. Small hiatal hernia. ? Throughout the spleen. 4.? Multiple low-density lesions within the spleen, possibly indicating infection (i.e., mycobacterial or fungal infection), granulomatous disease, metastatic disease, or lymphoma. 5. Nonobstructing left inferior pole renal calculus.? ? ? Dictated by: Josemanuel Mcneal M.D. on 11/16/2021 at 0:26 ? ? Approved by: Josemanuel Mcneal M.D. on 11/16/2021 at 0:29 ? ECG Data Interpretation: Normal sinus rhythm rate 91 normal EKG MDM Narrative Medical decision making narrative: Appropriate for admission. Likely urosepsis/pyelonephritis. Reviewed with patient and agree for admit. Will need IV antibiotics. I spoke with the hospitalist as well as urologist. Discharge Plan Departure Patient Disposition: Admitted as Observation Clinical Impression: Acute bacterial pyelonephritis Admit Date/Time: 11/15/21 23:54 Admit Provider: Angel Mead
[2021-11-15 23:30] VITALS: PULSE 87; O2SAT 91
--- NOTE | 2021-11-15 23:38 | DI.CT.S_ITS ---
PROCEDURE: CT ABDOMEN PELVIS W CON INDICATIONS: left flank pain TECHNIQUE: After the administration of intravenous contrast, axial sections acquired from the lung bases to the pubic symphysis. Coronal and sagittal reformats were performed. For radiation dose reduction, the following was used: automated exposure control, adjustment of mA and/or kV according to patient size. COMPARISON: [facility], RG, CT ABDOMEN/PELVIS WITH CONTRAST, 10/09/2021, 7:37. [facility], CT, CT KIDNEY URETER BLADDER (KUB), 10/10/2021, 7:52. FINDINGS: Image quality: Excellent. Lung bases: Unremarkable. Heart: No significant findings. ABDOMEN: Liver: Unremarkable. Gallbladder: Unremarkable. Biliary ducts: Unremarkable. Pancreas: Unremarkable. Spleen: Multifocal nodular densities Adrenal Glands: Unremarkable. Kidneys and Ureters: There is mild increased left perinephric fat stranding. Multifocal wedge-shaped regions of hypodensity within the left interpolar and superior pole kidney. Right kidney is grossly unremarkable. Nonobstructing curvilinear calculus within the inferior pole left kidney measuring 10 mm diameter, new since the prior examination. Left ureteral stent is present. There is mild left hydronephrosis and left ureteral dilatation. No right hydronephrosis. Urinary bladder grossly unremarkable. Stomach and Bowel: Small hiatal hernia. Stomach, small bowel loops, and colon are unremarkable. Appendix not seen. No evidence of appendicitis. Peritoneum: No abnormal intraperitoneal fluid. No free air. Ventral Wall: No hernias. Abdominal Nodes: No retroperitoneal or mesenteric adenopathy by size criteria. Vessels: Aorta and inferior vena cava are normal in size. PELVIS: Pelvic Organs: Unremarkable. Bladder: Unremarkable. Pelvic Nodes: No enlarged lymph nodes. Miscellaneous: No hernias are seen. Bones: Unremarkable. IMPRESSION: 1. Findings suggestive of left-sided pyelonephritis. Correlation with urinalysis recommended. 2. Mild left hydronephrosis. Left ureteral stent placement. 3. Small hiatal hernia. Throughout the spleen. 4. Multiple low-density lesions within the spleen, possibly indicating infection (i.e., mycobacterial or fungal infection), granulomatous disease, metastatic disease, or lymphoma. 5. Nonobstructing left inferior pole renal calculus. Dictated by: Josemanuel Mcneal M.D. on 11/16/2021 at 0:26 Approved by: Josemanuel Mcneal M.D. on 11/16/2021 at 0:29
[2021-11-15] MEDS: levoFLOXacin 750 MG/150 ML PIGGYBACK 100 MG IV (23:51)
[2021-11-15] MEDS: ACETAMINOPHEN 325 MG TABLET 975 MG PO (23:51)
[2021-11-16] VITALS (19 sets, daily range): BP systolic 101–138; BP diastolic 56–67; PULSE 68–96; RESP 14–19; TEMP 36.1–37.5; O2SAT 93–97; BMI 28.2
--- NOTE | 2021-11-16 01:40 | P.HP_ITS ---
History of Present Illness History of Present Illness Date Patient Seen: 11/16/21 Time Patient Seen: 00:15 Chief complaint: + Blood Cultures Narrative: Complex course beginning with ureteral stenting and subsequent lithotripsy and stent replacement with urology last month. Yesterday came to the ER feeling ill had no obvious red flags went home however blood cultures grew gram positive organisms she was called back in feeling much more obviously ill and nauseous with deep back ache today with clear CT findings suggestive of pyelonephritis in sepsis. She was admitted on levaquin and urology was notified they will likely pull out the remaining stent which was planned for later this week anyway. Patient History Medical History Asthma Biceps tendinitis of right shoulder Eczema History of UTI Impaired vision Kidney stones Left ureteral calculus Prediabetes Renal calculus, left Rotator cuff tear, right Surgical History History of History of cystoscopy Tubal ligation status Family & Social History Family History Mother Myocardial infarction Father Unspecified aircraft accident injuring occupant, sequela Kidney stones Social History: household members spouse,children Prior Living Arrangements House Safety & Behavioral: Feels Safe in Current Yes Environment Been Physically Hurt or No Threatened By a Person Suicidal Ideation Description None Suicide Plan Description No Plan Tobacco & Substance use: Smoking Status Never smoker alcohol intake former alcohol intake frequency holiday/special occasion Substance Use Type does not use Meds Home Medications and Allergies Home Medications Medication Instructions Recorded Confirmed Type loratadine 10 mg tablet 10 mg PO DAILY PRN 02/12/18 11/16/21 History fluticasone propionate 115 2 puff INHALATION BID 10/09/21 11/16/21 History mcg-salmeterol 21 mcg/actuation HFA inhaler (Advair HFA) oxycodone 5 mg tablet 5 mg PO Q4H PRN #14 tab 11/13/21 11/16/21 Rx ciprofloxacin HCl 250 mg tablet 250 mg PO BID #10 tab 11/15/21 11/16/21 Rx (Cipro) Allergies Allergy/AdvReac Type Severity Reaction Status Date / Time Sulfa (Sulfonamide Allergy Unknown Hives, Verified 11/13/21 09:31 Antibiotics) rash, swelling tamsulosin AdvReac Mild Makes her Verified 11/13/21 09:33 jittery Review of Systems Review of Systems Narrative: all systems reviewed and negative except as otherwise documented in HPI Exam Vital Signs (past 8 hours): - 11/15/21 22:22 11/16/21 00:09 Temperature 100.5 F H Pulse Rate 94 H 86 Respiratory Rate 22 16 Blood Pressure 121/58 L 118/56 L Pulse Oximetry 100 94 Oxygen Delivery Method Room Air Narrative Exam Narrative: tired ill looking woman laying exhausted in bed Const General: cooperative and in distress [facility] Head: normal to inspection, normocephalic and atraumatic Eyes General: appearance normal, both eyes and all related structures Resp Other: clear to auscultation bilaterally Cardio Other: regular rate and rhythm S1/S2 GI Other: soft nontender normal bowel sounds CVA TTP Skin General: no rashes or lesions noted Neuro General: patient alert, patient awake, patient oriented x3 and CN's II-XI intact bilaterally Extrem General: normal to inspection and full ROM Psych Appearance: grossly normal Mental Status: mental status grossly normal Mood: congruent mood Objective Labs Result Diagrams: 11/15/21 22:30 11/15/21 22:30 Labs: Laboratory Results - last 24 hr 11/15/21 11/15/21 11/15/21 22:30 22:30 22:30 WBC 12.9 H RBC 4.32 Hgb 12.2 Hct 36.3 MCV 84.1 MCH 28.3 MCHC 33.6 RDW 14.4 Plt Count 241 Neut % (Auto) 88.8 H Lymph % (Auto) 2.4 L [place] % (Auto) 8.3 Eos % (Auto) 0.1 L Baso % (Auto) 0.4 Neut # (Auto) 51135 H Lymph # (Auto) 300 L [place] # (Auto) 1100 H Eos # (Auto) 0 Baso # (Auto) 0 Sodium 129 L Potassium 3.3 L Chloride 99 Carbon Dioxide 22 BUN 14 Creatinine 0.75 Estimated GFR > 60.0 BUN/Creatinine Ratio 18.7 Glucose 153 H Lactate 0.8 Calcium 9.4 Total Bilirubin 1.4 H AST 37 H ALT 40 H Alkaline Phosphatase 113 Total Protein 7.7 Albumin 4.3 Globulin 3.4 Albumin/Globulin Ratio 1.3 Lipase 31 Procalcitonin 0.86 H SARS-CoV-2 (PCR) 11/15/21 22:42 WBC RBC Hgb Hct MCV MCH MCHC RDW Plt Count Neut % (Auto) Lymph % (Auto) [place] % (Auto) Eos % (Auto) Baso % (Auto) Neut # (Auto) Lymph # (Auto) [place] # (Auto) Eos # (Auto) Baso # (Auto) Sodium Potassium Chloride Carbon Dioxide BUN Creatinine Estimated GFR BUN/Creatinine Ratio Glucose Lactate Calcium Total Bilirubin AST ALT Alkaline Phosphatase Total Protein Albumin Globulin Albumin/Globulin Ratio Lipase Procalcitonin SARS-CoV-2 (PCR) Negative Assessment & Plan Assessment & Plan narrative: #sepsis #gram positive bacteremia #pyelonephritis with ureteral stent s/p lithotripsy elevated WBCs with lactic acidemia and neutrophilic predominance and CT findings of pyelonephritis levaquin and IVF running, kidney function appears ok based on creatinine urology planning to see tomorrow appreciate their input #hyponatremia Na 129 sudden drop since prior ED presentation will proceed with IVF with NS and monitor Code: full MDM: Damon [phone] diet: NPO dvt: lovenox Time Spent With Patient Critical Care time: I spent a total of [] minutes of critical care time on this patient's care today; this time is exclusive of procedural time. Quality VTE Deep Vein Thrombosis/Pulmonary Embolism Present on Admission: No
[2021-11-16] MEDS: LACTATED RINGERS 1,000 ML 125 ML IV ×3 (02:01→18:46)
--- NOTE | 2021-11-16 06:30 | PC.ADMIT ---
[address] Admission Note: The patient,Nadege Russo,60 y/o, was given written information regarding hospital policies, unit procedures and contact persons. Patient's smoking status: Never smoker. Vital Signs - 8 hr 11/16/21 00:09 11/16/21 02:30 11/16/21 03:00 Temperature Pulse Rate 86 69 69 Respiratory Rate 16 15 15 Blood Pressure 118/56 L 108/56 L 101/57 L Pulse Oximetry 94 94 11/16/21 04:00 11/16/21 05:00 11/16/21 06:00 Temperature 97.0 F L Pulse Rate 72 71 78 Respiratory Rate 17 19 18 Blood Pressure 121/57 L 123/60 138/63 Pulse Oximetry 93 Patient admitted to room 229 at 0020, A/Ox4, fatigued, afebrile, SR 80s, BP has been stable, see vital trends. LR @ 125ml/hr, Levaquin infused, voided 1900ml throughout night, started cloudy antonio-orange, clearing by am, NPO except ice chips. 3/10 pain across back and mild nausea, declined medication.
[2021-11-16] MEDS: MORPHINE 2 MG/ML INJ IV (06:54)
[2021-11-16] MEDS: ONDANSETRON 4 MG/2 ML INJ IV (08:14)
[2021-11-16] MEDS: HYDROCODONE/ACET 10/325 TABLET 1 TAB PO (08:14)
[2021-11-16] MEDS: POTASSIUM CHLORIDE IN WATER 10 MEQ/100 ML PIGGYBACK 100 MEQ IV ×4 (08:58→12:11)
--- NOTE | 2021-11-16 11:22 | CM.DANOTE ---
DCP: Case received, EMR reviewed and met with patient. Introduced self and role. Was able to obtain information regarding patient's baseline activity status at home prior to hospitalization. DCP assessment completed with information currently available. Patient is a 60 year old female who admitted yesterday evening to the care of the hospitalist team. PCP: Dr. Del Rosario. Payer: confirmed: [employer]. Patient came to the hospital via private vehicle secondary to flank back pain. Patient is status post left ureteral stent and lithotripsy. Patient was to have ureteral stent removed in 2 days, procedure was from Dr. Cannon. Patient had noted positive blood cultures, with fever and increased white cell count. Patient holds diagnosis of left-sided pyelonephritis. Met with patient in her room. She is alert and oriented, laying in bed. She was having some back discomfort. Confirmed that she resides in [place] with spouse, Damon. She is independent at her baseline. P: DCP to continue to follow. Patient should be able to go home when she is deemed medically stable. Urologist, Dr. Roman will be seeing patient here in the hospital. Kaitlin Arredondo RN/Electric Meter Technician Discharge Planning/Care Management CM Discharge Assessment Start: 11/16/21 11:21 Freq: Status: Active Protocol: Document 11/16/21 11:21 (Rec: 11/16/21 11:22 [id number]) Discharge Planning Assessment Assigned Computer Field Technician Kaitlin Arredondo RN/Electric Meter Technician Advance Directives? Yes Advance Directives on File Yes History Provided By Patient,Medical Record Prior Living Arrangements House Household Members spouse,children Type of transporation used prior to Drives own vehicle admit Independent with ADL's Yes Is patient alert and oriented? Yes Caregiver for Another No Barriers to Discharge No Discharge Plan Home Transportation Arrangement Spouse Referrals Initiated None needed Whiteboard Updated in Patient Room with Yes name and ext. # of Computer Field Technician Review Status In Process Next Review Type Continued Stay Review
[2021-11-16 11:53] LABS: Alanine Aminotransferase 27 IU/L (<35); Albumin 3.3 g/dL (3.5-5.0); Albumin Globulin Ratio 1.1 (1.0-2.8); Alkaline Phosphatase 90 U/L (38-126); Aspartate Aminotransferase 22 IU/L (14-36); BUN Creatinine Ratio 16.4 (6-22); Bilirubin Total 0.6 mg/dL (0.2-1.3); Blood Urea Nitrogen 10 mg/dL (7-17); Calcium 8.5 mg/dL (8.4-10.2); Carbon Dioxide 25 mmol/L (22-32); Chloride 104 mmol/L (98-107); Estimated Glomerular Filt Rate > 60.0 mL/min (>60); Glucose 110 mg/dL (80-110); HEMOLYSIS < 15 (0-50); Magnesium 2.1 mg/dL (1.6-2.3); Phosphorous 2.3 mg/dL (2.8-4.1); Potassium 3.8 mmol/L (3.4-5.1); Sodium 133 mmol/L (137-145); Total Protein 6.3 g/dL (6.3-8.2)
--- NOTE | 2021-11-16 12:20 | P.CONS_ITS ---
History of Present Illness Consult details Date Patient Seen: 11/16/21 Time Patient Seen: 07:30 Chief complaint: + Blood Cultures Reason for consult: Urosepsis Requesting provider: Francisco Victoria Narrative: Nadege is a 60-year-old white female well known to me with history of left ureterolithiasis and E coli UTI/left pyelonephritis. She began feeling poorly in about the last week of September 2021 she presented to [facility] where evaluation and initial imaging identified obstructing left ureteral calculi in the setting of UTI/sepsis. She was transferred to [facility] on 10/10/2021 and underwent urgent cystoscopy and placement of left ureteral stent. Urine culture at that time grew pansensitive E coli. She was treated appropriately intravenously and at discharge with appropriate oral antibiotic for 2 weeks. She presented for follow-up in the Urology Clinic on 10/24/2021. She was clinically well. Urinalysis was consistent with recent instrumentation verses indwelling foreign body (stent) or UTI. Urine cultures was negative. She then underwent uncomplicated cystoscopy and left ureteroscopic laser lithotripsy with left stent exchange on 11/13/2021. Preoperative. Cefazolin 2 g was administered preoperatively. She did well until yesterday morning when she had onset of an episode of shaking rigors. She presented to [facility] ED-C documentation associated laboratories. No repeat imaging was obtained. The patient contact the urology clinic later in the day on 11/15/2021. At that time I prescribed ciprofloxacin 250 mg p.o. b.i.d. and contacted the hospital laboratory to request culture and sensitivity on the urinalysis provided earlier that morning. She again presented late in the hours of 11/15/2021 with clinical deterioration to [facility] ED. laboratory significantly changed in the intervening hours between ED visits. At visit last night she presented with leukocytosis and change in liver function enzymes. I spoke with ED provider and recommended obtaining CT KUB. Review of those images this morning indicates concerning interval changes related to the appearance of the spleen suggesting possible multiple splenic abscesses. Initial PCR indicates Enterococcus species. Meds Home Medications and Allergies Home Medications Medication Instructions Recorded Confirmed Type loratadine 10 mg tablet 10 mg PO DAILY PRN 02/12/18 11/16/21 History fluticasone propionate 115 2 puff INHALATION BID 10/09/21 11/16/21 History mcg-salmeterol 21 mcg/actuation HFA inhaler (Advair HFA) oxycodone 5 mg tablet 5 mg PO Q4H PRN #14 tab 11/13/21 11/16/21 Rx ciprofloxacin HCl 250 mg tablet 250 mg PO BID #10 tab 11/15/21 11/16/21 Rx (Cipro) Allergies Allergy/AdvReac Type Severity Reaction Status Date / Time Sulfa (Sulfonamide Allergy Unknown Hives, Verified 11/13/21 09:31 Antibiotics) rash, swelling tamsulosin AdvReac Mild Makes her Verified 11/13/21 09:33 jittery Review of Systems Review of Systems ROS: Yes All systems reviewed with the patient and are negative except as otherwise documented Exam Vital Signs (past 8 hours): - 11/16/21 04:30 11/16/21 05:00 11/16/21 05:30 Temperature Pulse Rate 83 71 78 Respiratory Rate 19 Blood Pressure 123/60 Pulse Oximetry 11/16/21 06:00 11/16/21 06:30 11/16/21 07:00 Temperature 98.2 F Pulse Rate 79 81 96 H Respiratory Rate 18 18 Blood Pressure 138/63 117/57 L Pulse Oximetry 94 11/16/21 07:30 Temperature Pulse Rate 93 H Respiratory Rate Blood Pressure Pulse Oximetry 94 Oxygen Delivery Method Room Air Narrative Exam Narrative: Sleeping comfortably in bed in no acute distress. Mild to moderate left CVA and left upper quadrant tenderness without rebound or guarding. Objective Labs Result Diagrams: 11/15/21 22:30 11/16/21 11:31 Labs: Laboratory Results - last 24 hr 11/15/21 11/15/21 11/15/21 22:30 22:30 22:30 WBC 12.9 H RBC 4.32 Hgb 12.2 Hct 36.3 MCV 84.1 MCH 28.3 MCHC 33.6 RDW 14.4 Plt Count 241 Neut % (Auto) 88.8 H Lymph % (Auto) 2.4 L [place] % (Auto) 8.3 Eos % (Auto) 0.1 L Baso % (Auto) 0.4 Neut # (Auto) 35515 H Lymph # (Auto) 300 L [place] # (Auto) 1100 H Eos # (Auto) 0 Baso # (Auto) 0 Sodium 129 L Potassium 3.3 L Chloride 99 Carbon Dioxide 22 BUN 14 Creatinine 0.75 Estimated GFR > 60.0 BUN/Creatinine Ratio 18.7 Glucose 153 H Lactate 0.8 Calcium 9.4 Phosphorus Magnesium Total Bilirubin 1.4 H AST 37 H ALT 40 H Alkaline Phosphatase 113 Total Protein 7.7 Albumin 4.3 Globulin 3.4 Albumin/Globulin Ratio 1.3 Lipase 31 Procalcitonin 0.86 H Nasal Screen MRSA (PCR) SARS-CoV-2 (PCR) 11/15/21 11/16/21 11/16/21 22:42 02:24 11:31 WBC RBC Hgb Hct MCV MCH MCHC RDW Plt Count Neut % (Auto) Lymph % (Auto) [place] % (Auto) Eos % (Auto) Baso % (Auto) Neut # (Auto) Lymph # (Auto) [place] # (Auto) Eos # (Auto) Baso # (Auto) Sodium 133 L Potassium 3.8 Chloride 104 Carbon Dioxide 25 BUN 10 Creatinine 0.61 Estimated GFR > 60.0 BUN/Creatinine Ratio 16.4 Glucose 110 Lactate Calcium 8.5 Phosphorus 2.3 L Magnesium 2.1 Total Bilirubin 0.6 AST 22 ALT 27 Alkaline Phosphatase 90 Total Protein 6.3 Albumin 3.3 L Globulin 3.0 Albumin/Globulin Ratio 1.1 Lipase Procalcitonin Nasal Screen MRSA (PCR) Negative for mrsa SARS-CoV-2 (PCR) Negative [facility] Medical History Asthma Biceps tendinitis of right shoulder Eczema History of UTI Impaired vision Kidney stones Left ureteral calculus Prediabetes Renal calculus, left Rotator cuff tear, right Surgical History History of History of cystoscopy Tubal ligation status Family History Mother Myocardial infarction Father Unspecified aircraft accident injuring occupant, sequela Kidney stones Social History marital status: number of children: 5 household members: spouse and children Tobacco & Substance Use Smoking Status: Never smoker alcohol intake: former Assessment & Plan Assessment & Plan narrative: Assessment: 1. Enterococcus sepsis. 2. Retained left ureteral stent. 3. Apparent interval formation of a new left lower pole renal calculus. Plan: 1. Discussed coordination of care with Dr. Pederson of the hospitalist service. Shared my concerns regarding comparative interval change in imaging findings of left kidney and spleen. Discussed possible role for infectious disease consultation. 2. From standpoint recommend identification of offending organism and treat as indicated. 3. Recommend leaving retained left ureteral stent indwelling at this time. 4. No immediate indications for any operative interventions. Time Spent With Patient Critical Care time: I spent a total of [] minutes of critical care time on this patient's care today; this time is exclusive of procedural time.
[2021-11-16] MEDS: ENOXAPARIN 40 MG/0.4 ML SYRINGE SUBCUT (13:35)
[2021-11-16] MEDS: ACETAMINOPHEN 325 MG TABLET 650 MG PO ×3 (13:36→23:56)
[2021-11-16] MEDS: AMPICILLIN/SULBACTAM 3 GM 3 GM in SODIUM CHLORIDE 0.9% 100 ML IV ×2 (13:37→20:01)
[2021-11-16] MEDS: OXYCODONE IR 5 MG TABLET PO ×3 (14:50→23:55)
[2021-11-16 15:26] LABS: Alanine Aminotransferase 25 IU/L (<35); Albumin 3.2 g/dL (3.5-5.0); Albumin Globulin Ratio 1.1 (1.0-2.8); Alkaline Phosphatase 86 U/L (38-126); Aspartate Aminotransferase 22 IU/L (14-36); BUN Creatinine Ratio 16.9 (6-22); Bilirubin Total 0.6 mg/dL (0.2-1.3); Blood Urea Nitrogen 10 mg/dL (7-17); Calcium 8.4 mg/dL (8.4-10.2); Carbon Dioxide 26 mmol/L (22-32); Chloride 103 mmol/L (98-107); Estimated Glomerular Filt Rate > 60.0 mL/min (>60); Glucose 201 mg/dL (80-110); HEMOLYSIS < 15 (0-50); Potassium 3.4 mmol/L (3.4-5.1); Sodium 130 mmol/L (137-145); Total Protein 6.2 g/dL (6.3-8.2)
[2021-11-16] MEDS: VANCOMYCIN 1,500 MG/300 ML PIGGYBACK 200 MG IV (17:11)
[2021-11-16] MEDS: POTASSIUM PHOSPHATE 15 MMOL in SODIUM CHLORIDE 0.9% 250 ML 63.75 ML IV (18:44)
[2021-11-16] MEDS: BUDESONIDE 0.5 MG/2 ML NEB INH (20:40)
[2021-11-16] MEDS: DOCUSATE 100 MG CAPSULE PO (21:13)
--- NOTE | 2021-11-16 23:57 | RT ---
assesed patient for nebulizer therapy . pt only takes prn at home her current order is greater than home reg and not indicated at this time
[2021-11-17] VITALS (7 sets, daily range): BP systolic 109–125; BP diastolic 50–70; PULSE 71–84; RESP 14–18; TEMP 36.4–37.4; O2SAT 95–98
[2021-11-17] MEDS: AMPICILLIN/SULBACTAM 3 GM 3 GM in SODIUM CHLORIDE 0.9% 100 ML IV ×4 (01:12→18:12)
[2021-11-17] MEDS: LACTATED RINGERS 1,000 ML 125 ML IV (04:51)
[2021-11-17] MEDS: VANCOMYCIN 1,500 MG/300 ML PIGGYBACK 200 MG IV (04:52)
[2021-11-17] MEDS: ACETAMINOPHEN 325 MG TABLET 650 MG PO ×3 (06:30→18:12)
[2021-11-17] MEDS: OXYCODONE IR 5 MG TABLET PO ×3 (06:30→18:11)
[2021-11-17 06:45] LABS: Add Manual Diff / Slide Review NO; Basophils Absolute Auto 0 /uL (0-100); Basophils Percent Auto 0.3 % (0-2); Eosinophils Absolute Auto 300 /uL (0-450); Eosinophils Percent Auto 3.6 % (2-4); Hematocrit 31.4 % (36-46); Hemoglobin 10.4 g/dL (12.0-16.0); Lymphocytes Absolute Auto 400 /uL (1100-4500); Lymphocytes Percent Auto 4.9 % (25-40); Mean Corpuscular HGB Conc 33.3 % (30-36); Mean Corpuscular Hemoglobin 28.1 PG (26-34); Mean Corpuscular Volume 84.3 fL (80-100); Monocytes Absolute Auto 600 /uL (0-900); Monocytes Percent Auto 7.3 % (3-14); Neutrophils Absolute Auto 6500 /uL (1500-7000); Neutrophils Percent Auto 83.9 % (50-75); Platelet Count 185 X10^3/uL (150-400); Red Blood Cell Count 3.72 X10^6/uL (4.0-5.2); Red Cell Distribution Width 14.8 % (11.6-14.8); White Blood Cell Count 7.8 X10^3/uL (4.5-11.0)
[2021-11-17 06:56] LABS: Alanine Aminotransferase 91 IU/L (<35); Albumin 3.2 g/dL (3.5-5.0); Albumin Globulin Ratio 1.1 (1.0-2.8); Alkaline Phosphatase 157 U/L (38-126); Aspartate Aminotransferase 89 IU/L (14-36); BUN Creatinine Ratio 13.8 (6-22); Bilirubin Total 0.6 mg/dL (0.2-1.3); Blood Urea Nitrogen 8 mg/dL (7-17); Calcium 8.2 mg/dL (8.4-10.2); Carbon Dioxide 28 mmol/L (22-32); Chloride 104 mmol/L (98-107); Estimated Glomerular Filt Rate > 60.0 mL/min (>60); Glucose 118 mg/dL (80-110); HEMOLYSIS 40 (0-50); Potassium 3.6 mmol/L (3.4-5.1); Sodium 134 mmol/L (137-145); Total Protein 6.2 g/dL (6.3-8.2)
[2021-11-17 06:57] LABS: Magnesium 1.9 mg/dL (1.6-2.3); Phosphorous 2.1 mg/dL (2.8-4.1)
[2021-11-17 07:13] LABS: Procalcitonin 0.87 ng/mL (<0.5)
[2021-11-17] MEDS: BUDESONIDE 0.5 MG/2 ML NEB INH ×2 (07:53→21:39)
[2021-11-17] MEDS: SODIUM,POTASSIUM PHOSPHATES PACKET 1 EACH PO (09:44)
[2021-11-17] MEDS: ENOXAPARIN 40 MG/0.4 ML SYRINGE SUBCUT (09:44)
[2021-11-17] MEDS: DOCUSATE 100 MG CAPSULE PO (09:45)
--- NOTE | 2021-11-17 12:50 | DI.ECHO.S_ITS ---
[facility] +---------+ : : [address] : : : : [id number] : : : : Phone: [phone]+ Echocardiogram Report + + :Name: JULIANA MENDEZ Study Date: 11/17/2021 Height: 66 in : :[facility] ReadingLocation: Weight: 186 lb : : Gender: Female BSA: 1.9 m2 : :: 1960 Age: 60 yrs BP: 125/50 mmHg: :Reason For Study: SEPSIS : :Ordering Physician: Nadira : :Hospitalist Performed By: Danielle Upton : :Referring: JOSE FRANCISCO MCCOY : + + Interpretation Summary 1) Normal left ventricular thickness, size, wall motion, and systolic function (EF 60-65%). 2) Normal right ventricular size and function. 3) No significant valvular abnormalities. 4) No prior Echo available for comparison. Procedure: A two-dimensional transthoracic echocardiogram with color flow and Doppler was performed. The study quality was technically adequate. There is no prior echocardiogram noted for this patient. The patient was in normal sinus rhythm during the exam. Left Ventricle: The left ventricle appears normal in size, wall thickness, and systolic function without any focal wall motion abnormalities. There is no ventricular septal defect visualized. The ejection fraction is estimated to be 60-65%. Diastolic parameters suggest probable normal left ventricular diastolic function and normal filling pressures. Right Ventricle: The right ventricle is normal in size and function. Atria: The left atrium is moderately dilated. The right atrium is mildly dilated. There is no Doppler evidence for an interatrial shunt. Mitral Valve: The mitral valve is normal in structure and function. There is mild mitral annular calcification. There is trace mitral regurgitation. Aortic Valve: The aortic valve is normal in structure and function. There is no aortic valve stenosis. No aortic regurgitation is present. Tricuspid Valve: The tricuspid valve leaflets are thin and pliable. There is mild tricuspid regurgitation. The right ventricular systolic pressure is estimated to be at least 38 mmHg based on an estimated right atrial pressure of 8 mm Hg. Pulmonic Valve: The pulmonic valve leaflets are thin and pliable; valve motion is normal. There is mild pulmonic regurgitation. Great Vessels: The aortic root is normal size. The ascending aorta is at the upper limits of normal in size. The aortic arch could not be visualized. The IVC is of normal diameter and collapses less than 50% with a sniff. This suggests a right atrial pressure of 8 mm Hg. Pericardium/ Pleura There is no pericardial effusion. MMode/2D Measurements & Calculations LVIDd: 4.6 cm LVOT diam: 2.1 cm LVIDs: 2.8 cm Ao root diam: 3.6 cm FS: 39.6 % asc Aorta Diam: 3.4 cm EPSS: 0.63 cm IVSd: 0.83 cm LVPWd: 0.70 cm LV liriano. diameter/BSA (cm/m^2): 2.4 LV sys. diameter/BSA (cm/m^2): 1.4 LA A2 area: 23.1 cm2 RA long axis: 5.5 cm LA A4 area: 23.8 cm2 RA area: 18.5 cm2 LA length (vol): 5.4 cm RA vol: 52.4 ml LA vol: 86.1 ml RA : 27.0 ml/m2 LA vol index: 44.4 ml/m2 IVC diam: 2.6 cm RVD1 (basal): 4.0 cm TAPSE: 2.4 cm Doppler Measurements & Calculations Ao V2 max: 147.5 cm/sec LVOT Max Pedrito: 111.8 cm/sec Ao V2 mean: 98.7 cm/sec LV V1 max P.0 mmHg Ao max P.7 mmHg LV V1 VTI: 22.8 cm Ao mean P.6 mmHg CATALINA(I,D): 2.9 cm2 Ao V2 VTI: 27.0 cm CATALINA(V,D): 2.6 cm2 sev ratio: 0.84 CATALINA indexed to BSA (cm^2/m^2): 1.5 MV E max pedrito: 88.5 cm/sec TR max pedrito: 274.6 cm/sec MV A max pedrito: 70.0 cm/sec TR max P.2 mmHg MV E/A: 1.3 PA V2 max: 77.2 cm/sec Med Peak E' Pedrito: 9.6 cm/sec PA V2 mean: 59.3 cm/sec E/E' med: 9.2 PA mean P.5 mmHg Lat Peak E' Pedrito: 9.4 cm/sec PA pr(Accel): 48.2 mmHg E/E' lat: 9.4 E/e' average: 9.3 MV dec time: 0.20 sec SV(LVOT): 77.9 ml Reading Physician:11:25 AM
--- NOTE | 2021-11-17 14:32 | PM.PN.1 ---
Subjective Subjective Date Patient Seen: 11/17/21 Interval history: 60-year-old female admitted to the hospital with enterococcal bacteremia.? She is status post lithotripsy of stent placement. CT consistent with acute left pyelonephritis as well as multiple small splenic abscesses. Patient has been afebrile. She reports improvement in back pain. She does complain of constipation. Exam Vital Signs (past 8 hours): - 11/17/21 07:53 11/17/21 08:00 11/17/21 12:00 Temperature 98.4 F 97.6 F Pulse Rate 74 84 71 Respiratory Rate 18 18 16 Blood Pressure 121/66 110/70 Pulse Oximetry 96 96 Fraction of Inspired Oxygen 21 Oxygen Delivery Method Room Air Oxygen Flow Rate 0 Narrative Exam Narrative: General: Alert and pleasant female in no acute distress Lungs: Clear Heart: Regular rhythm Abdomen: Soft and nontender Extremities: No edema Objective Labs Result Diagrams: 11/17/21 06:30 11/17/21 06:30 Labs: Laboratory Results - last 24 hr 11/16/21 11/17/21 11/17/21 14:40 06:30 06:30 WBC 7.8 RBC 3.72 L Hgb 10.4 L Hct 31.4 L MCV 84.3 MCH 28.1 MCHC 33.3 RDW 14.8 Plt Count 185 Neut % (Auto) 83.9 H Lymph % (Auto) 4.9 L [place] % (Auto) 7.3 Eos % (Auto) 3.6 Baso % (Auto) 0.3 Neut # (Auto) 6500 Lymph # (Auto) 400 L [place] # (Auto) 600 Eos # (Auto) 300 Baso # (Auto) 0 Sodium 130 L Potassium 3.4 Chloride 103 Carbon Dioxide 26 BUN 10 Creatinine 0.59 Estimated GFR > 60.0 BUN/Creatinine Ratio 16.9 Glucose 201 H Calcium 8.4 Phosphorus Magnesium Total Bilirubin 0.6 AST 22 ALT 25 Alkaline Phosphatase 86 Total Protein 6.2 L Albumin 3.2 L Globulin 3.0 Albumin/Globulin Ratio 1.1 Procalcitonin 0.87 H 11/17/21 11/17/21 06:30 06:30 WBC RBC Hgb Hct MCV MCH MCHC RDW Plt Count Neut % (Auto) Lymph % (Auto) [place] % (Auto) Eos % (Auto) Baso % (Auto) Neut # (Auto) Lymph # (Auto) [place] # (Auto) Eos # (Auto) Baso # (Auto) Sodium 134 L Potassium 3.6 Chloride 104 Carbon Dioxide 28 BUN 8 Creatinine 0.58 Estimated GFR > 60.0 BUN/Creatinine Ratio 13.8 Glucose 118 H Calcium 8.2 L Phosphorus 2.1 L Magnesium 1.9 Total Bilirubin 0.6 AST 89 H ALT 91 H Alkaline Phosphatase 157 H D Total Protein 6.2 L Albumin 3.2 L Globulin 3.0 Albumin/Globulin Ratio 1.1 Procalcitonin [facility] Medical History Asthma Biceps tendinitis of right shoulder Eczema History of UTI Impaired vision Kidney stones Left ureteral calculus Prediabetes Renal calculus, left Rotator cuff tear, right Surgical History History of History of cystoscopy Tubal ligation status Family History Mother Myocardial infarction Father Unspecified aircraft accident injuring occupant, sequela Kidney stones Social History marital status: number of children: 5 household members: spouse and children Smoking Status: Never smoker alcohol intake: former Assessment & Plan Assessment & Plan narrative: 1. Enterococcal bacteremia secondary to urinary source -patient has retained left ureteral stent, appreciate urology consult -positive blood and urine culture from 11/15/2021 sensitive to ampicillin -follow-up repeat blood cultures from 11/16 and 11/17 -echo: No obvious abnormality -will need ivis if has persistent positive blood cultures -continue Unasyn at least until there is confirmed clearing of bacteremia then transition to p.o. antibiotic to finish 2 week course -infectious disease phone consultation with Dr Dolan at [facility], tel [phone] re plan of care -manage pain with oxycodone/hydrocodone as needed -Lovenox for DVT prophylaxis 2. Constipation -MiraLax q.d. -continue doxy Time Spent With Patient Critical Care time: I spent a total of [] minutes of critical care time on this patient's care today; this time is exclusive of procedural time. Quality VTE Deep Vein Thrombosis/Pulmonary Embolism Present on Admission: No
[2021-11-17] MEDS: polyethylene glycoL 3350 17 GM POWD.PACK PO (15:13)
[2021-11-18] MEDS: AMPICILLIN/SULBACTAM 3 GM 3 GM in SODIUM CHLORIDE 0.9% 100 ML IV ×2 (00:46→06:48)
[2021-11-18] MEDS: ACETAMINOPHEN 325 MG TABLET 650 MG PO ×4 (00:46→23:45)
[2021-11-18] MEDS: OXYCODONE IR 5 MG TABLET PO ×4 (00:48→20:37)
[2021-11-18 04:00] VITALS: BP 114/64; PULSE 97; RESP 16; TEMP 36.9; O2SAT 97
[2021-11-18 08:00] VITALS: BP 134/78; PULSE 67; RESP 17; TEMP 36.6; O2SAT 97
[2021-11-18] MEDS: polyethylene glycoL 3350 17 GM POWD.PACK PO (08:38)
[2021-11-18] MEDS: DOCUSATE 100 MG CAPSULE PO ×2 (08:38→20:36)
[2021-11-18] MEDS: ENOXAPARIN 40 MG/0.4 ML SYRINGE SUBCUT (08:38)
[2021-11-18] MEDS: BUDESONIDE 0.5 MG/2 ML NEB INH (08:45)
[2021-11-18 08:47] VITALS: O2SAT 95
[2021-11-18 12:00] VITALS: BP 102/79; PULSE 101; RESP 15; TEMP 36.2; O2SAT 96
[2021-11-18] MEDS: AMPICILLIN 2,000 MG in SODIUM CHLORIDE 0.9% 100 ML 200 ML IV ×4 (12:25→23:45)
--- NOTE | 2021-11-18 13:20 | P.PN_ITS ---
Subjective Subjective Date Patient Seen: 11/18/21 Interval history: 60-year-old female admitted to the hospital with enterococcal bacteremia.? She is status post left uretral lithotripsy, stent placement, stent replacement 11/13.? CT consistent with acute left pyelonephritis. Additionally multiple small densities were noted in the spleen of unknown significance. Patient has been afebrile on IV antibiotic. She is feeling much better. She reports less back pain. Exam Vital Signs (past 8 hours): - 11/18/21 08:00 11/18/21 08:47 Temperature 97.9 F Pulse Rate 67 Respiratory Rate 17 Blood Pressure 134/78 Pulse Oximetry 97 95 Fraction of Inspired Oxygen 21 Oxygen Delivery Method Room Air Oxygen Flow Rate 0 Narrative Exam Narrative: General: Alert, NAD Objective Labs Result Diagrams: 11/17/21 06:30 11/17/21 06:30 [facility] Medical History Asthma Biceps tendinitis of right shoulder Eczema History of UTI Impaired vision Kidney stones Left ureteral calculus Prediabetes Renal calculus, left Rotator cuff tear, right Surgical History History of History of cystoscopy Tubal ligation status Family History Mother Myocardial infarction Father Unspecified aircraft accident injuring occupant, sequela Kidney stones Social History marital status: number of children: 5 household members: spouse and children Smoking Status: Never smoker alcohol intake: former Assessment & Plan Assessment & Plan narrative: 1. Enterococcal bacteremia secondary to urinary source -patient has retained left ureteral stent, appreciate urology consult -positive blood and urine culture from 11/15/2021 sensitive to ampicillin -repeat blood cultures from 11/16 and 11/17 so far negative -echo:? No obvious abnormality -will need ivis if has persistent positive blood cultures -infectious disease phone consultation on 11/[address] at [facility], tel [phone] re plan of care -per ID, change antibiotic from Unasyn to ampicillin 2 gm IV q4 hours -will need at least 2 week course of IV abx -PICC line ordered for Monday 11/20 prior to d/c home -[facility] hospital referral to [facility] for outpatient follow-up before stopping home IV antibiotics 2. Multiple small splenic densities on CT -reviewed findings with ID and radiologist, unclear etiology, differential includes infectious and metastatic disease -abscess unlikely with normal echo and negative follow-up blood cultures -no obvious source of potential metastatic disease seen on abdomen CT, chest x- ray or blood work -id recommended follow-up imaging in 2 weeks to determine resolution of abnormalities on IV antibiotic -patient may need additional follow-up imaging to assess stability of lesions and/or outpatient Oncology evaluation for potential malignancy -findings and recommendations have been reviewed with patient 3. Status post left ureteral lithotripsy, retained left ureteral stent -outpatient follow-up with Dr. Cannon 4.? Constipation -MiraLax q.d., docusate DVT prophylaxis: Lovenox Time Spent With Patient Critical Care time: I spent a total of [] minutes of critical care time on this patient's care today; this time is exclusive of procedural time. Quality VTE Deep Vein Thrombosis/Pulmonary Embolism Present on Admission: No
--- NOTE | 2021-11-18 15:59 | CM.DPC ---
DCP Continued: RODRIGO spoke with Dr. Munguia who stated the patient will need two weeks of IV abx at [place]. RX will be Ampacilline 2mg q4hr. Cm met with patient and her at the bedside and explained the need for IV abx and asked if they would like to do IV infusions at home or do SNF placement. patient does not want SNF placement really wants to have [facility] help her get home. CM attempted to call [facility] spoke with informatics consultant pharmacist who took the patients information. CM faxed clinical information to [facility]- CM will follow up with them tomorrow to get a RX faxed off to them. Danyell Mena RNprep manager
[2021-11-18 16:00] VITALS: BP 132/74; PULSE 71; RESP 18; TEMP 36.7; O2SAT 97
[2021-11-18 20:00] VITALS: BP 132/66; PULSE 76; RESP 14; TEMP 37; O2SAT 97
[2021-11-19] VITALS (8 sets, daily range): BP systolic 118–138; BP diastolic 58–83; PULSE 68–80; RESP 16–20; TEMP 36.4–37.7; O2SAT 96–98
[2021-11-19] MEDS: BUDESONIDE 0.5 MG/2 ML NEB INH ×3 (00:08→19:32)
[2021-11-19] MEDS: AMPICILLIN 2,000 MG in SODIUM CHLORIDE 0.9% 100 ML 200 ML IV (03:49)
[2021-11-19 05:30] LABS: Add Manual Diff / Slide Review NO; Basophils Absolute Auto 0 /uL (0-100); Basophils Percent Auto 0.9 % (0-2); Eosinophils Absolute Auto 200 /uL (0-450); Eosinophils Percent Auto 6.5 % (2-4); Hemoglobin 10.7 g/dL (12.0-16.0); Lymphocytes Absolute Auto 500 /uL (1100-4500); Lymphocytes Percent Auto 13.5 % (25-40); Mean Corpuscular HGB Conc 33.4 % (30-36); Monocytes Absolute Auto 500 /uL (0-900); Monocytes Percent Auto 12.3 % (3-14); Neutrophils Absolute Auto 2500 /uL (1500-7000); Neutrophils Percent Auto 66.8 % (50-75); Platelet Count 226 X10^3/uL (150-400); Red Blood Cell Count 3.81 X10^6/uL (4.0-5.2); Red Cell Distribution Width 14.8 % (11.6-14.8); White Blood Cell Count 3.7 X10^3/uL (4.5-11.0)
[2021-11-19 05:45] LABS: Alanine Aminotransferase 192 IU/L (<35); Albumin 3.4 g/dL (3.5-5.0); Alkaline Phosphatase 406 U/L (38-126); Aspartate Aminotransferase 100 IU/L (14-36); BUN Creatinine Ratio 11.1 (6-22); Bilirubin Total 0.6 mg/dL (0.2-1.3); Blood Urea Nitrogen 7 mg/dL (7-17); Calcium 8.7 mg/dL (8.4-10.2); Carbon Dioxide 30 mmol/L (22-32); Chloride 106 mmol/L (98-107); Estimated Glomerular Filt Rate > 60.0 mL/min (>60); Globulin 3.4 g/dL (1.7-4.1); Glucose 107 mg/dL (80-110); HEMOLYSIS < 15 (0-50); Potassium 3.4 mmol/L (3.4-5.1); Sodium 140 mmol/L (137-145); Total Protein 6.8 g/dL (6.3-8.2)
[2021-11-19] MEDS: OXYCODONE IR 5 MG TABLET PO ×3 (06:21→20:08)
[2021-11-19] MEDS: ACETAMINOPHEN 325 MG TABLET 650 MG PO ×2 (06:21→14:42)
--- NOTE | 2021-11-19 07:47 | DI.US.S_ITS ---
PROCEDURE: US ABDOMEN LIMITED INDICATIONS: ACUTE TRANSAMINITIS, BACTUREMIA TECHNIQUE: Real-time focused scanning was performed of the abdomen, with image documentation. COMPARISON: None. FINDINGS: Liver has a normal appearance. No liver masses or dilated ducts. Common bile duct measures 5.2 mm. Common hepatic duct measures 2 mm. Gallbladder is contracted. Patient is in a nonfasting state. No stones or gallbladder wall thickening or pain on examination. Visualized portions of the pancreas are unremarkable. IMPRESSION: 1. Unremarkable appearance of liver. 2. No dilated ducts. 3. No gallstones. Dictated by: Temo Valencia M.D. on 11/19/2021 at 15:17 Approved by: Temo Valencia M.D. on 11/19/2021 at 15:19
[2021-11-19] MEDS: ENOXAPARIN 40 MG/0.4 ML SYRINGE SUBCUT (08:52)
[2021-11-19] MEDS: polyethylene glycoL 3350 17 GM POWD.PACK PO (08:52)
[2021-11-19] MEDS: DOCUSATE 100 MG CAPSULE PO ×2 (08:52→20:09)
[2021-11-19] MEDS: POTASSIUM CHLORIDE 20 MEQ TAB 40 MEQ PO (10:21)
--- NOTE | 2021-11-19 11:11 | P.PN_ITS ---
Subjective Subjective Date Patient Seen: 11/19/21 Interval history: 60-year-old female admitted to the hospital with enterococcal bacteremia.? She is status post left uretral lithotripsy, stent placement, stent replacement 11/13.? CT consistent with acute left pyelonephritis. Additionally multiple small densities were noted in the spleen of unknown significance. On a.m. labs patient has significant spike in LFTs possibly secondary to high- dose IV ampicillin. She has been afebrile, feels a little tired, abdomen feels bloated but otherwise no complaints. Exam Vital Signs (past 8 hours): - 11/19/21 06:00 11/19/21 08:47 Temperature 98.4 F Pulse Rate 68 71 Respiratory Rate 18 16 Blood Pressure 128/68 Pulse Oximetry 98 97 Fraction of Inspired Oxygen 21 Oxygen Delivery Method Room Air Oxygen Flow Rate 0 Narrative Exam Narrative: General: Alert and in no acute distress Objective Labs Result Diagrams: 11/19/21 04:48 11/19/21 04:48 Labs: Laboratory Results - last 24 hr 11/19/21 11/19/21 04:48 04:48 WBC 3.7 L D RBC 3.81 L Hgb 10.7 L Hct 32.0 L MCV 84.0 MCH 28.0 MCHC 33.4 RDW 14.8 Plt Count 226 Neut % (Auto) 66.8 Lymph % (Auto) 13.5 L [place] % (Auto) 12.3 Eos % (Auto) 6.5 H Baso % (Auto) 0.9 Neut # (Auto) 2500 Lymph # (Auto) 500 L [place] # (Auto) 500 Eos # (Auto) 200 Baso # (Auto) 0 Sodium 140 Potassium 3.4 Chloride 106 Carbon Dioxide 30 BUN 7 Creatinine 0.63 Estimated GFR > 60.0 BUN/Creatinine Ratio 11.1 Glucose 107 Calcium 8.7 Total Bilirubin 0.6 AST 100 H ALT 192 H Alkaline Phosphatase 406 H D Total Protein 6.8 Albumin 3.4 L Globulin 3.4 Albumin/Globulin Ratio 1.0 PFSH Medical History Asthma Biceps tendinitis of right shoulder Eczema History of UTI Impaired vision Kidney stones Left ureteral calculus Prediabetes Renal calculus, left Rotator cuff tear, right Surgical History History of History of cystoscopy Tubal ligation status Family History Mother Myocardial infarction Father Unspecified aircraft accident injuring occupant, sequela Kidney stones Social History marital status: number of children: 5 household members: spouse and children Smoking Status: Never smoker alcohol intake: former Assessment & Plan Assessment & Plan narrative: 1. Enterococcal bacteremia secondary to urinary source -patient has retained left ureteral stent, appreciate urology consult -positive blood and urine culture from 11/15/2021 sensitive to ampicillin -repeat blood cultures from 11/16 and 11/17 so far negative -echo:? No obvious abnormality -will need ivis if has persistent positive blood cultures -infectious disease phone consultation on 11/[address] Dolan at [facility], tel [phone] re plan of care -per ID, change antibiotic from Unasyn to ampicillin 2 gm IV q4 hours -will need at least 2 week course of IV abx -PICC line ordered for Monday 11/20 prior to d/c home -needs hospital referral and schedule appointment at [facility] for outpatient follow-up before stopping home IV antibiotics -11/19 antibiotics switched to daptomycin 560 mg Q 24 (8 mg/kg lean body mass) due to spike in LFTs (see below) 2. Acute transaminitis -AST 25--100, ALT 29--192, AP 109--406, bili 0.6 -differential secondary to high-dose ampicillin verses metastatic infection to liver area which is less likely -abdominal ultrasound -touch base with ID to review antibiotic management after ultrasound is completed -trend enzymes -additionally noted mild leukopenia, will trend 3. Multiple small splenic densities on CT -reviewed findings with ID and radiologist, unclear etiology, differential includes infectious and metastatic disease -abscess unlikely with normal echo and negative follow-up blood cultures -no obvious source of potential metastatic disease seen on abdomen CT, chest x- ray or blood work -id recommended follow-up imaging in 2 weeks to determine resolution of abnormalities on IV antibiotic -patient may need additional follow-up imaging to assess stability of lesions and/or outpatient Oncology evaluation for potential malignancy -findings and recommendations have been reviewed with patient 3. Status post left ureteral lithotripsy, retained left ureteral stent -ureteral stent was replaced 11/13/21 -outpatient follow-up with Dr. Cannon 4.? Constipation -MiraLax q.d., docusate Time Spent With Patient Critical Care time: I spent a total of [] minutes of critical care time on this patient's care today; this time is exclusive of procedural time. Quality VTE Deep Vein Thrombosis/Pulmonary Embolism Present on Admission: No
[2021-11-19] MEDS: SODIUM CHLORIDE 0.9% FLUSH 10 ML IV (20:09)
[2021-11-20] VITALS (7 sets, daily range): BP systolic 121–141; BP diastolic 60–87; PULSE 72–88; RESP 17–19; TEMP 36.4–37.5; O2SAT 94–99
[2021-11-20 05:32] LABS: Add Manual Diff / Slide Review NO; Basophils Absolute Auto 0 /uL (0-100); Basophils Percent Auto 0.8 % (0-2); Eosinophils Absolute Auto 300 /uL (0-450); Eosinophils Percent Auto 5.3 % (2-4); Lymphocytes Absolute Auto 500 /uL (1100-4500); Lymphocytes Percent Auto 10.1 % (25-40); Mean Corpuscular HGB Conc 33.2 % (30-36); Mean Corpuscular Volume 84.3 fL (80-100); Monocytes Absolute Auto 700 /uL (0-900); Neutrophils Absolute Auto 3600 /uL (1500-7000); Neutrophils Percent Auto 70.8 % (50-75); Platelet Count 257 X10^3/uL (150-400); Red Blood Cell Count 3.91 X10^6/uL (4.0-5.2); Red Cell Distribution Width 14.9 % (11.6-14.8); White Blood Cell Count 5.1 X10^3/uL (4.5-11.0)
[2021-11-20 05:41] LABS: Alanine Aminotransferase 230 IU/L (<35); Albumin 3.7 g/dL (3.5-5.0); Albumin Globulin Ratio 1.1 (1.0-2.8); Alkaline Phosphatase 556 U/L (38-126); Aspartate Aminotransferase 120 IU/L (14-36); BUN Creatinine Ratio 14.1 (6-22); Bilirubin Total 0.5 mg/dL (0.2-1.3); Blood Urea Nitrogen 9 mg/dL (7-17); Calcium 8.9 mg/dL (8.4-10.2); Carbon Dioxide 28 mmol/L (22-32); Chloride 105 mmol/L (98-107); Estimated Glomerular Filt Rate > 60.0 mL/min (>60); Globulin 3.5 g/dL (1.7-4.1); Glucose 117 mg/dL (80-110); HEMOLYSIS < 15 (0-50); Potassium 3.7 mmol/L (3.4-5.1); Sodium 137 mmol/L (137-145); Total Protein 7.2 g/dL (6.3-8.2)
[2021-11-20] MEDS: BUDESONIDE 0.5 MG/2 ML NEB INH ×2 (07:52→20:01)
[2021-11-20] MEDS: DAPTOMYCIN IV (09:08)
[2021-11-20] MEDS: ENOXAPARIN 40 MG/0.4 ML SYRINGE SUBCUT (09:08)
[2021-11-20] MEDS: SODIUM CHLORIDE 0.9% IV (09:08)
[2021-11-20] MEDS: polyethylene glycoL 3350 17 GM POWD.PACK PO (09:09)
[2021-11-20] MEDS: FLUCONAZOLE 100 MG TABLET 200 MG PO (09:09)
[2021-11-20] MEDS: DOCUSATE 100 MG CAPSULE PO ×2 (09:10→21:02)
[2021-11-20] MEDS: SODIUM CHLORIDE 0.9% FLUSH 10 ML IV ×2 (09:10→21:02)
--- NOTE | 2021-11-20 12:45 | CM.DPC ---
DCP Cont: Confirmed with patient, she is comfortable going home with IV antibiotics. She lives with supportive . Called Saran at [facility], he asked if referral can be resent, he did not see it in his paperwork. He can start auth today. Discussed patient in team rounds, and patient is not yet ready for discharge due to increased LFT, possibly tomorrow. Faxed Saran over face sheet, H&P, labs, med sheets. Confirmed that following provider is Dr. Johnson, I&D doctor at [facility]. PICC line will be inserted today, and will fax over sight sheet to [facility] when it's complete P: DCP to continue to work on getting patient home with [facility]. Kaitlin Arredondo, RN/Mirror Framer
--- NOTE | 2021-11-20 12:54 | DI.RAD.S_ITS ---
PROCEDURE: XR CHEST 1V INDICATIONS: verify PICC placement TECHNIQUE: One view of the chest was acquired. COMPARISON: [facility], , XR CHEST 1V, 11/15/2021, 22:43. FINDINGS: Surgical changes and devices: Left-sided PICC line tip is in SVC. Lungs and pleura: Mild pulmonary vascular congestion is seen. No definite focal infiltrate. No pleural effusions or pneumothorax. Mediastinum: Mediastinal contours appear normal. Heart size is enlarged. Bones and chest wall: No suspicious bony lesions. Overlying soft tissues appear unremarkable. IMPRESSION: Left-sided PICC line tip is in the expected location of SVC. Pulmonary vascular congestion. No definite infiltrate or gross pneumothorax. Dictated by: Anibal Ramirez M.D. on 11/20/2021 at 13:47 Approved by: Anibal Ramirez M.D. on 11/20/2021 at 13:47
--- NOTE | 2021-11-20 12:59 | P.PN_ITS ---
Subjective Subjective Date Patient Seen: 11/20/21 Time Patient Seen: 09:30 Interval history: 60-year-old female admitted to the hospital with enterococcal bacteremia.? She is status post left uretral lithotripsy, stent placement, stent replacement 11/13.? CT consistent with acute left pyelonephritis. Additionally multiple small densities were noted in the spleen of unknown significance. On a.m. labs patient has significant spike in LFTs possibly secondary to high- dose IV ampicillin (probably more likely zosyn) but was changed to daptomycin.? She has been afebrile, feels a little tired, abdomen feels bloated but no nausea or vomiting. Stable from before. Does complain of sore throat and vaginal pruritis but no vaginal bleeding or discharge. Exam Vital Signs (past 8 hours): - 11/20/21 07:53 11/20/21 09:15 Temperature 97.6 F Pulse Rate 88 72 Respiratory Rate 18 19 Blood Pressure 125/76 Pulse Oximetry 99 97 Fraction of Inspired Oxygen 21 Oxygen Delivery Method Room Air Oxygen Flow Rate 0 Narrative Exam Narrative: General:? Patient is well developed and well nourished, in no distress at this time. HEENT:? Normocephalic, atraumatic, extraocular muscles intact, oral pharynx has mild candidal appearance. Neck: supple and symmetric, trachea is midline, no cervical adenopathy. Negative for JVD Chest:? Normal AP diameter and contour without kyphoscoliosis, no tachypnea, equal chest rise bilaterally. Lungs:? CTA b/l no wheezing rhonchi or rales. Cardio:?RRR no m/r/g. Abdomen: S NT mild distension. No CVA tenderness. Musculoskeletal:? Muscle strength and tone are equal within normal limits, no deformity. Extremities: No edema or joint effusions. No cyanosis or clubbing. Skin:? Pale,? Warm to touch,dry and intact without rashes, ulcerations or petechiae.? Neuro:? Alert and orientated x3,? sensation to touch intact in all extremities, no gross deficits noted of cranial nerves. Psych:? Patient has a well-kept appearance, appropriate affect, mental status attitude thought context and judgment are appropriate for age. Objective Labs Result Diagrams: 11/20/21 04:48 11/20/21 04:48 Labs: Laboratory Results - last 24 hr 11/20/21 11/20/21 04:48 04:48 WBC 5.1 RBC 3.91 L Hgb 11.0 L Hct 33.0 L MCV 84.3 MCH 28.0 MCHC 33.2 RDW 14.9 H Plt Count 257 Neut % (Auto) 70.8 Lymph % (Auto) 10.1 L [place] % (Auto) 13.0 Eos % (Auto) 5.3 H Baso % (Auto) 0.8 Neut # (Auto) 3600 Lymph # (Auto) 500 L [place] # (Auto) 700 Eos # (Auto) 300 Baso # (Auto) 0 Sodium 137 Potassium 3.7 Chloride 105 Carbon Dioxide 28 BUN 9 Creatinine 0.64 Estimated GFR > 60.0 BUN/Creatinine Ratio 14.1 Glucose 117 H Calcium 8.9 Total Bilirubin 0.5 AST 120 H ALT 230 H Alkaline Phosphatase 556 H Total Protein 7.2 Albumin 3.7 Globulin 3.5 Albumin/Globulin Ratio 1.1 COUNTS INCLUDE 234 BEDS AT [facility] Medical History Asthma Biceps tendinitis of right shoulder Eczema History of UTI Impaired vision Kidney stones Left ureteral calculus Prediabetes Renal calculus, left Rotator cuff tear, right Surgical History History of History of cystoscopy Tubal ligation status Family History Mother Myocardial infarction Father Unspecified aircraft accident injuring occupant, sequela Kidney stones Social History marital status: number of children: 5 household members: spouse and children Smoking Status: Never smoker alcohol intake: former Assessment & Plan Assessment & Plan narrative: 1. Enterococcal bacteremia secondary to urinary source -patient has retained left ureteral stent, appreciate urology consult -positive blood and urine culture from 11/15/2021 sensitive to ampicillin -repeat blood cultures from 11/16 and 11/17 so far negative -echo:? No obvious abnormality -will need ivis if has persistent positive blood cultures -infectious disease phone consultation on 11/[address] Kelly at [facility], tel [phone] re plan of care -per ID, change antibiotic from Unasyn to ampicillin 2 gm IV q4 hours -will need at least 2 week course of IV abx -PICC line ordered for today. -needs hospital referral and schedule appointment at [facility] for outpatient follow-up before stopping home IV antibiotics -11/19 antibiotics switched to daptomycin 560 mg Q 24 (8 mg/kg lean body mass) due to spike in LFTs (see below) 2. Acute transaminitis, likely DILI. -AST 25--100, ALT 29--192, AP 109--406, bili 0.6 -differential secondary to high-dose ampicillin or zosyn more likely verses metastatic infection to liver area which is less likely -abdominal ultrasound negative. -changed to daptomycin, continue to trend until downtrending and then will need continued monitoring as an outpatient. 3. Multiple small splenic densities on CT -reviewed findings with ID and radiologist, unclear etiology, differential includes infectious and metastatic disease -abscess unlikely with normal echo and negative follow-up blood cultures -no obvious source of potential metastatic disease seen on abdomen CT, chest x-ray or blood work -id recommended follow-up imaging in 2 weeks to determine resolution of abnormalities on IV antibiotic -patient may need additional follow-up imaging to assess stability of lesions and/or outpatient Oncology evaluation for potential malignancy -findings and recommendations have been reviewed with patient 4. Status post left ureteral lithotripsy, retained left ureteral stent -ureteral stent was replaced 11/13/21 -outpatient follow-up with Dr. Cannon 5.? Constipation -MiraLax q.d., docusate Code: Full Dispo: plan for dischage home once LFTs begin to improve. Time Spent With Patient Critical Care time: I spent a total of [] minutes of critical care time on this patient's care today; this time is exclusive of procedural time. Quality VTE Deep Vein Thrombosis/Pulmonary Embolism Present on Admission: No
[2021-11-20] MEDS: OXYCODONE IR 5 MG TABLET PO (18:38)
[2021-11-21] VITALS: BP 126/69; PULSE 68; RESP 18; TEMP 36.7; O2SAT 96
[2021-11-21 04:00] VITALS: BP 127/71; PULSE 65; RESP 18; TEMP 36.8; O2SAT 97
[2021-11-21 06:50] LABS: Add Manual Diff / Slide Review NO; Basophils Absolute Auto 0 /uL (0-100); Basophils Percent Auto 0.8 % (0-2); Eosinophils Absolute Auto 200 /uL (0-450); Hematocrit 35.5 % (36-46); Hemoglobin 11.8 g/dL (12.0-16.0); Lymphocytes Absolute Auto 700 /uL (1100-4500); Lymphocytes Percent Auto 11.4 % (25-40); Mean Corpuscular HGB Conc 33.2 % (30-36); Mean Corpuscular Hemoglobin 28.1 PG (26-34); Mean Corpuscular Volume 84.8 fL (80-100); Monocytes Absolute Auto 700 /uL (0-900); Monocytes Percent Auto 11.5 % (3-14); Neutrophils Absolute Auto 4200 /uL (1500-7000); Neutrophils Percent Auto 72.3 % (50-75); Platelet Count 312 X10^3/uL (150-400); Red Blood Cell Count 4.19 X10^6/uL (4.0-5.2); White Blood Cell Count 5.8 X10^3/uL (4.5-11.0)
[2021-11-21 07:02] LABS: Alanine Aminotransferase 212 IU/L (<35); Albumin 4.3 g/dL (3.5-5.0); Albumin Globulin Ratio 1.1 (1.0-2.8); Alkaline Phosphatase 627 U/L (38-126); Aspartate Aminotransferase 69 IU/L (14-36); BUN Creatinine Ratio 15.9 (6-22); Bilirubin Total 0.6 mg/dL (0.2-1.3); Blood Urea Nitrogen 11 mg/dL (7-17); Calcium 9.4 mg/dL (8.4-10.2); Carbon Dioxide 31 mmol/L (22-32); Chloride 105 mmol/L (98-107); Estimated Glomerular Filt Rate > 60.0 mL/min (>60); Globulin 3.9 g/dL (1.7-4.1); Glucose 116 mg/dL (80-110); HEMOLYSIS < 15 (0-50); Sodium 140 mmol/L (137-145); Total Protein 8.2 g/dL (6.3-8.2)
[2021-11-21 08:00] VITALS: BP 140/85; PULSE 65; RESP 18; O2SAT 97
--- NOTE | 2021-11-21 08:25 | P.DS_ITS ---
History of Present Illness History of Present Illness Date Patient Seen: 11/21/21 Time Patient Seen: 08:26 Chief complaint: + Blood Cultures Narrative: Per Dr. Mead, Complex course beginning with ureteral stenting and subsequent lithotripsy and stent replacement with urology last month. Yesterday came to the ER feeling ill had no obvious red flags went home however blood cultures grew gram positive organisms she was called back in feeling much more obviously ill and nauseous with deep back ache today with clear CT findings suggestive of pyelonephritis in sepsis.? She was admitted on levaquin and urology was notified they will likely pull out the remaining stent which was planned for later this week anyway.? Discharge Providers Provider Date of admission: 11/15/21 23:54 Discharge Date: 11/21/21 Primary care physician: Yadira Del Rosario MD Consults: 11/16/21 12:04 Consult to Physician Routine Comment: Consulting Provider: Burt Cannon Reason for consultation: s/p stenting Has provider been notified: Yes Discharge provider: Dionisio Herron DO Summary Hospital Course Discharge Diagnosis: 1. Enterococcal bacteremia secondary to urinary source 2. Acute transaminitis, suspect DILI. 3. Multiple small splenic densities on CT 4. Status post left ureteral lithotripsy, retained left ureteral stent 5.? Constipation 6. Thrush, vaginal candidiasis Hospital Course: This is the 60-year-old female who has a retained left urethral stent who was admitted with enterococcal bacteremia likely secondary to a urinary source. She was initially started on broad-spectrum antibiotics, CT imaging further showed multiple small splenic densities which could be indicative of infectious or metastatic disease. Infectious Disease consultation was recommended and obtained. For the bacteremia, ID with [facility] recommended initially a changed from Unasyn to ampicillin, however over the few days following admission her transaminase levels david quite quickly. This may have been due to her initial antibiotics or ampicillin, but the day of discharge they finally began to downtrend after reviewing her antibiotics and the decision was made to change to IV daptomycin. Infectious disease recommended at least 2 weeks of IV antibiotics which was set up with [facility] at home. I have also ordered a repeat laboratory evaluation in a week to make sure that her enzymes are continuing to downtrend. Follow-up appointment with Infectious Disease was scheduled for December 01. On hospital day 3, the patient complained of mild sore throat as well as vaginal itching without vaginal discharge or bleeding. She was diagnosed with a oral thrush and vaginal candidiasis in the setting of antibiotics for which she was treated with fluconazole and will continue oral therapy at home. Over the course of admission she did not have any abdominal pain or nausea, vomiting. Abdominal ultrasound showed no biliary pathology either to explain her transaminase levels. Time Spent with Patient Time spent: Greater than 30 minutes Exam Vital Signs (past 8 hours): - 11/21/21 04:00 Temperature 98.3 F Pulse Rate 65 Respiratory Rate 18 Blood Pressure 127/71 Pulse Oximetry 97 Fraction of Inspired Oxygen 21 Oxygen Delivery Method Room Air Oxygen Flow Rate 0 Narrative Exam Narrative: General:? Patient is well developed and well nourished, in no distress at this time. HEENT:? Normocephalic, atraumatic, extraocular muscles intact, oral pharynx has mild candidal appearance. Neck: supple and symmetric, trachea is midline, no cervical adenopathy. Negative for JVD Chest:? Normal AP diameter and contour without kyphoscoliosis, no tachypnea, equal chest rise bilaterally. Lungs:? CTA b/l no wheezing rhonchi or rales. Cardio:?RRR no m/r/g. Abdomen: S NT mild distension. No CVA tenderness. Musculoskeletal:? Muscle strength and tone are equal within normal limits, no deformity. Extremities: No edema or joint effusions. No cyanosis or clubbing. Skin:? Pale,? Warm to touch,dry and intact without rashes, ulcerations or petechiae.? Neuro:? Alert and orientated x3,? sensation to touch intact in all extremities, no gross deficits noted of cranial nerves. Psych:? Patient has a well-kept appearance, appropriate affect, mental status attitude thought context and judgment are appropriate for age. Objective Labs Result Diagrams: 11/21/21 06:20 11/21/21 06:20 Labs: Laboratory Results - last 24 hr 11/21/21 11/21/21 06:20 06:20 WBC 5.8 RBC 4.19 Hgb 11.8 L Hct 35.5 L MCV 84.8 MCH 28.1 MCHC 33.2 RDW 15.0 H Plt Count 312 Neut % (Auto) 72.3 Lymph % (Auto) 11.4 L [place] % (Auto) 11.5 Eos % (Auto) 4.0 Baso % (Auto) 0.8 Neut # (Auto) 4200 Lymph # (Auto) 700 L [place] # (Auto) 700 Eos # (Auto) 200 Baso # (Auto) 0 Sodium 140 Potassium 4.0 Chloride 105 Carbon Dioxide 31 BUN 11 Creatinine 0.69 Estimated GFR > 60.0 BUN/Creatinine Ratio 15.9 Glucose 116 H Calcium 9.4 Total Bilirubin 0.6 AST 69 H ALT 212 H Alkaline Phosphatase 627 H Total Protein 8.2 Albumin 4.3 Globulin 3.9 Albumin/Globulin Ratio 1.1 PFSH Medical History Asthma Biceps tendinitis of right shoulder Eczema History of UTI Impaired vision Kidney stones Left ureteral calculus Prediabetes Renal calculus, left Rotator cuff tear, right Surgical History History of History of cystoscopy Tubal ligation status Family History Mother Myocardial infarction Father Unspecified aircraft accident injuring occupant, sequela Kidney stones Social History marital status: number of children: 5 household members: spouse and children Smoking Status: Never smoker alcohol intake: former Discharge Plan Discharge Plan Patient Disposition: Home Provider Discharge Comment: You were admitted to the hospital with a bacteria in your blood, likely occurred as a result of retained stent in your ureter. Dr. Orr at [facility] with infectious disease appointment scheduled, this will be on 12/01/21 at 9:30. Please call your insurance as sometimes people have high bills through [employer] without approval. Repeat labs ordered for 1 week as well. Discharge orders & Medications Prescriptions: New fluconazole [Diflucan] 100 mg Tablet 100 mg PO DAILY 5 Days 0RF daptomycin [Cubicin] 500 mg Recon Soln 560 mg IV Q24H 14 Days Qty: 14 0RF Continued loratadine 10 mg Tablet 10 mg PO DAILY PRN (Reason: allergies) 0RF Label Comments: uses seasonally oxycodone 5 mg tablet 5 mg PO Q4H PRN (Reason: pain) Qty: 14 0RF Advair HFA 115-21 mcg/actuation Hfa Aerosol Inhaler 2 puff INHALATION BID 0RF Discontinued ciprofloxacin HCl [Cipro] 250 mg tablet 250 mg PO BID Qty: 10 0RF Label Comments: has only taken 1 pill so far Follow up/Referrals: Yadira Del Rosario MD [Primary Care Provider] - Other Ambulatory Orders: Complete Blood Count AUTO DIFF (Routine) Timeframe: 1 Week Facility: [facility] - Location: Laboratory Ordered By: Dionisio Herron Creatine Kinase (Routine) Timeframe: 1 Week Facility: [facility] - Location: Laboratory Ordered By: Dionisio Herron Comprehensive Metabolic Panel (Routine) Timeframe: 1 Week Facility: [facility] - Location: Laboratory Ordered By: Dionisio Herron Discharge Health Status Multidrug resistant organism: No MDRO Diet/Activity/Treatments Diet: Diet as Tolerated Activity: As tolerated Visit Report/Discharge Packet Instructions: DI for Urinary Tract Infection (UTI), DI for Sepsis -- Adult, DI for Ureteral Stent Placement, DI for Peripherally Inserted Central Catheter Removal Discharge Data Primary Care Provider: Yadira Del Rosario Quality VTE Deep Vein Thrombosis/Pulmonary Embolism Present on Admission: No
[2021-11-21 09:00] VITALS: PULSE 70; RESP 16; O2SAT 96
[2021-11-21] MEDS: BUDESONIDE 0.5 MG/2 ML NEB INH (09:00)
--- NOTE | 2021-11-21 09:05 | CM.DPC ---
DCP Cont: Patient is to be discharged home today. Dr. Herron completed a script for her Daptomycin, and she can have dose here. Left Saran at [facility] a message, and indicated in the message that home health has not been ordered, unless it would be less costly to have a home health nurse come out and do the PICC line dressing change. Faxed over the script, site information of PICC, chest xray showing that PICC was inserted. P: Patient is to be discharged home today. Will discuss with Saran if [facility] can meet her needs with dressing changes, and a time that they can come to patient's home. Kaitlin Arredondo RN/Supervisor [employer]
[2021-11-21] MEDS: SODIUM CHLORIDE 0.9% IV (09:34)
[2021-11-21] MEDS: DAPTOMYCIN IV (09:34)
[2021-11-21] MEDS: polyethylene glycoL 3350 17 GM POWD.PACK PO (09:34)
[2021-11-21] MEDS: DOCUSATE 100 MG CAPSULE PO (09:35)
[2021-11-21] MEDS: SODIUM CHLORIDE 0.9% FLUSH 10 ML IV (09:36)
[2021-11-21] MEDS: FLUCONAZOLE 100 MG TABLET PO (09:36)
[2021-11-21 11:06] VITALS: BP 124/79; PULSE 76; RESP 18; TEMP 36.6; O2SAT 96
[2021-11-21] MEDS: OXYCODONE IR 5 MG TABLET PO (11:41)
--- NOTE | 2021-11-21 17:24 | PC.NURSE ---
Discharge: Feels ready to d/c to home. Seen by [facility] and given instructions on how to give IV antibiotics. Seen by MD and given final instructions. Reviewed d/c packet. Has rx. Questions answered. Pt d/c to home via auto w/spouse.
== END 2021-11-21 17:20 | disposition home or self-care (01) | DRG 690 ==
LOC: ED 23:24 → ICU 11-16 01:28 → AC 11-16 11:12
PROVIDERS: Internal Medicine; Admitting Provider Family Medicine; Emergency Provider Emergency Medicine; PCP Student in an Organized Health Care Education/Training Program; Referring Provider Emergency Medicine; Visit Provider Internal Medicine
DX: N10 Acute pyelonephritis (principal); E87.1 Hypo-osmolality and hyponatremia; R78.81 Bacteremia; B37.0 Candidal stomatitis; B95.2 Enterococcus as the cause of diseases classified elsewhere; N20.0 Calculus of kidney; R74.01 Elevation of levels of liver transaminase levels; D73.9 Disease of spleen, unspecified; B37.3 Candidiasis of vulva and vagina; K59.00 Constipation, unspecified; J45.909 Unspecified asthma, uncomplicated; Z20.822 Contact with and (suspected) exposure to COVID-19; G89.18 Other acute postprocedural pain
CPT/HCPCS: 36415; 36569; 71045; 74177; 76705; 80053; 81001; 83605; 83690; 83735; 84100; 84145; 85025; 87040; 87077; 87086; 87150; 87186; 87205; 87635; 87797; 93005; 93306; 94640; 94760; 96361; 96365; 96375; 99232; 99284; C9803; J0290; J0295; J0878; J1642; J1650; J1885; J1956; J2270; J2405; Q9967

== ENCOUNTER → 2021-12-12 15:19 | Outpatient (CLI) | payer OTHER, SELFPAY ==
[2021-11-16 00:58] VITALS: BMI 28.2
--- NOTE | 2021-12-12 15:21 | DI.RAD.S_ITS ---
PROCEDURE: XR KUB INDICATIONS: kidney stone followup TECHNIQUE: One view of the abdomen acquired. COMPARISON: [facility], CR, XR KUB, 10/24/2021, 10:49. FINDINGS: Surgical changes and devices: There is interval removal of previously noted left-sided ureteral stent. Bowel: Bowel gas pattern is normal. Soft tissues: Small calcifications projecting over mid to lower pole of left kidney are again seen and measures up to 6 mm in size unchanged from prior study. Visualized solid organ contours appear normal in size. Bones: No suspicious bony lesions. IMPRESSION: Interval removal of left-sided ureteral stent. Stable appearing left-sided renal calculi. Dictated by: Anibal Ramirez M.D. on 12/12/2021 at 16:29 Approved by: Anibal Ramirez M.D. on 12/12/2021 at 16:30
[2021-12-12 16:15] LABS: Add Manual Diff / Slide Review NO; Basophils Absolute Auto 0 /uL (0-100); Basophils Percent Auto 0.5 % (0-2); Eosinophils Absolute Auto 500 /uL (0-450); Eosinophils Percent Auto 11.7 % (2-4); Hematocrit 35.7 % (36-46); Hemoglobin 12.2 g/dL (12.0-16.0); Lymphocytes Absolute Auto 700 /uL (1100-4500); Lymphocytes Percent Auto 14.5 % (25-40); Mean Corpuscular Hemoglobin 28.7 PG (26-34); Mean Corpuscular Volume 84.5 fL (80-100); Monocytes Absolute Auto 400 /uL (0-900); Monocytes Percent Auto 8.2 % (3-14); Neutrophils Absolute Auto 3100 /uL (1500-7000); Neutrophils Percent Auto 65.1 % (50-75); Platelet Count 244 X10^3/uL (150-400); Red Blood Cell Count 4.23 X10^6/uL (4.0-5.2); Red Cell Distribution Width 15.2 % (11.6-14.8); White Blood Cell Count 4.7 X10^3/uL (4.5-11.0)
[2021-12-12 16:34] LABS: Calcium 9.9 mg/dL (8.4-10.2); Uric Acid 3.5 mg/dL (2.5-6.2)
[2021-12-12 16:35] LABS: Alanine Aminotransferase 25 IU/L (<35); Albumin 4.6 g/dL (3.5-5.0); Albumin Globulin Ratio 1.4 (1.0-2.8); Alkaline Phosphatase 116 U/L (38-126); Aspartate Aminotransferase 24 IU/L (14-36); BUN Creatinine Ratio 10.8 (6-22); Bilirubin Total 0.4 mg/dL (0.2-1.3); Blood Urea Nitrogen 13 mg/dL (7-17); Calcium 9.8 mg/dL (8.4-10.2); Carbon Dioxide 24 mmol/L (22-32); Chloride 106 mmol/L (98-107); Creatine Kinase 37 U/L (30-135); Estimated Glomerular Filt Rate 45.4 mL/min (>60); Globulin 3.2 g/dL (1.7-4.1); Glucose 103 mg/dL (80-110); HEMOLYSIS < 15 (0-50); Potassium 3.9 mmol/L (3.4-5.1); Sodium 142 mmol/L (137-145); Total Protein 7.8 g/dL (6.3-8.2)
[2021-12-13 07:10] LABS: Calcium 9.5 mg/dL (8.7-10.3); Parathyroid Hormone, Intact 24 pg/mL (15-65)
== END ==
PROVIDERS: Internal Medicine; PCP Student in an Organized Health Care Education/Training Program; Referring Provider Specialist; Visit Provider Specialist
DX: N20.1 Calculus of ureter (principal); R78.81 Bacteremia; N20.0 Calculus of kidney; Z87.440 Personal history of urinary (tract) infections
CPT/HCPCS: 36415; 74018; 80053; 82310; 82550; 83970; 84550; 85025

== ENCOUNTER → 2022-01-17 13:56 | Outpatient (CLI) | payer OTHER, SELFPAY ==
[2021-12-19 10:12] VITALS: BMI 28.2
--- NOTE | 2022-01-17 13:58 | DI.RAD.S_ITS ---
PROCEDURE: XR KUB INDICATIONS: Kidney Stone TECHNIQUE: One view of the abdomen acquired. COMPARISON: [facility], CR, XR KUB, 12/12/2021, 15:29. FINDINGS: Surgical changes and devices: None. Bowel: Bowel gas pattern is normal. Soft tissues: No suspicious abdominal calcifications. Visualized solid organ contours appear normal in size. Calcifications on the prior study which were projecting over the lower pole are unchanged. Bones: No suspicious bony lesions. Mild curvature of the thoracolumbar spine. IMPRESSION: 1. No obstructive nephroureterolithiasis identified. 2. Nonobstructive calcifications projecting over the lower pole of the left kidney. Dictated by: Martin Freitas M.D. on 01/17/2022 at 16:54 Approved by: Martin Freitas M.D. on 01/17/2022 at 16:58
== END ==
PROVIDERS: PCP Student in an Organized Health Care Education/Training Program; Referring Provider Specialist; Visit Provider Specialist
DX: N20.1 Calculus of ureter (principal)
CPT/HCPCS: 74018

== ENCOUNTER → 2022-02-28 12:13 | Outpatient (CLI) | payer OTHER, SELFPAY ==
[2021-12-19 10:12] VITALS: BMI 28.2
--- NOTE | 2022-02-28 12:15 | DI.RAD.S_ITS ---
PROCEDURE: XR KUB INDICATIONS: kidney stones TECHNIQUE: One view of the abdomen acquired. COMPARISON: [facility], CR, XR KUB, 01/17/2022, 13:53. FINDINGS: Surgical changes and devices: None. Bowel: Bowel gas pattern is normal. Soft tissues: No suspicious abdominal calcifications. Visualized solid organ contours appear normal in size. Bones: No suspicious bony lesions. IMPRESSION: No radiopaque calculi identified. Dictated by: Temo Valencia M.D. on 02/28/2022 at 16:53 Approved by: Temo Valencia M.D. on 02/28/2022 at 16:54
[2022-02-28 15:11] LABS: Appearance Urine UA CLEAR; Bilirubin Urine UA NEGATIVE (NEGATIVE); Color Urine UA YELLOW; Glucose Urine UA NEGATIVE (Negative); Ketones Urine UA NEGATIVE (NEGATIVE); Leukocyte Esterase Urine UA TRACE (NEGATIVE); Nitrite Urine UA NEGATIVE (Negative); Occult Blood Urine UA NEGATIVE (Negative); Protein Urine UA NEGATIVE (Negative); Specific Gravity Urine UA <=1.005 (1.000-1.035); Urobilinogen Urine UA 0.2 E.U./dL (0.2)
[2022-02-28 15:18] LABS: Bacteria Urine Occasional (0-1); RBC Urine None Seen (0-5/HPF); Squamous Epithelial Cell Urine 0-1 /HPF (0-5/HPF); WBC Urine 5-10/HPF (0-5/HPF)
[2022-02-28 15:19] LABS: Culture Indicated Urine Specimen Cultured
== END ==
PROVIDERS: PCP Student in an Organized Health Care Education/Training Program; Referring Provider Specialist; Visit Provider Specialist
DX: N20.0 Calculus of kidney (principal); N20.1 Calculus of ureter; R30.0 Dysuria
CPT/HCPCS: 74018; 81001; 87086

== ENCOUNTER → 2022-03-06 08:42 | Outpatient (CLI) | payer OTHER, SELFPAY ==
[2021-12-19 10:12] VITALS: BMI 28.2
--- NOTE | 2022-03-06 08:44 | DI.CT.S_ITS ---
PROCEDURE: CT KIDNEY URETER BLADDER (KUB) INDICATIONS: Kidney stones TECHNIQUE: Axial sections were acquired from the lung bases to the pubic symphysis. Coronal and sagittal reformats were performed. For radiation dose reduction, the following was used: automated exposure control, adjustment of mA and/or kV according to patient size. COMPARISON: [facility], CR, XR KUB, 01/17/2022, 13:53. [facility], CR, XR KUB, 02/28/2022, 12:15. [facility], CT, CT KIDNEY URETER BLADDER (KUB), 10/10/2021, 7:52. FINDINGS: Image quality: Excellent. Lung bases: Clear lung bases. No hiatal hernia. Heart: Normal size heart without pericardial effusion. URINARY: Right Kidney: No stones or hydronephrosis. Right Ureter: No hydroureter. Left Kidney: Punctate, nonobstructing lower pole calculus. No hydronephrosis. Left Ureter: Mild hydroureter and trace periureteric inflammation. 8 mm ovoid stone within the ureter at the level of the distal ureter approximately 2 cm above the UVJ. Hounsfield units measure 318. Bladder: Normal wall thickness. No stones. ABDOMEN: Liver: No masses Gallbladder: Normal wall thickness. Biliary ducts: Nondilated. Pancreas: Normal. Spleen: Normal size. Adrenal Glands: No nodules. Stomach and Bowel: Stomach, small bowel loops, and colon are unremarkable. Normal appendix. Peritoneum: No abnormal intraperitoneal fluid. No free air. Ventral Wall: No hernia. Abdominal Nodes: No enlarged retroperitoneal or mesenteric lymph nodes. Vessels: Aorta and inferior vena cava are normal in size. PELVIS: Pelvic Organs: Normal uterus and ovaries. Pelvic Nodes: No suspicious adenopathy. Miscellaneous: No soft tissue mass or inguinal hernias. Bones:. Normal. IMPRESSION: 1. Elongated 8 mm stone in the distal left ureter, stable position compared to recent KUB. There is mild proximal hydroureter. No hydronephrosis. 2. Punctate left nonobstructing intrarenal calculus. Dictated by: Khushi Rivera M.D. on 03/06/2022 at 10:51 Approved by: Khushi Rivera M.D. on 03/06/2022 at 11:00
== END ==
PROVIDERS: PCP Student in an Organized Health Care Education/Training Program; Referring Provider Specialist; Visit Provider Specialist
DX: N20.2 Calculus of kidney with calculus of ureter (principal); N13.4 Hydroureter
CPT/HCPCS: 74176

== ENCOUNTER 2022-03-12 13:09 | Day surgery (SDC) | payer OTHER, SELFPAY ==
[2021-12-19 10:12] VITALS: BMI 28.2
[2022-03-12] VITALS (9 sets, daily range): BP systolic 119–150; BP diastolic 70–89; PULSE 55–90; RESP 15–22; TEMP 36.1–36.6; O2SAT 95–100; BMI 27.9
--- NOTE | 2022-03-12 | DI.RAD.S_ITS ---
PROCEDURE: XR ABDOMEN 1V INDICATIONS: LT STENT PLACEMENT STONE REMOVE TECHNIQUE: One view of the abdomen acquired. COMPARISON: [facility], CR, XR ABDOMEN 1V, 11/13/2021, 12:21. FINDINGS: Fluoroscopic coned in images of the left abdomen demonstrate left-sided ureteral stent placement. IMPRESSION: Fluoroscopically assisted left ureteral stent placed. Dictated by: Price Street M.D. on 03/13/2022 at 11:59 Approved by: Price Street M.D. on 03/13/2022 at 12:02
[2022-03-12 14:08] LABS: COVID19 -Nasal RAPID Negative (Negative)
--- NOTE | 2022-03-12 15:57 | PM.PREOP ---
Pre-operative Note COVID-19 Criteria for continued procedure: Expected advancement of disease process, Possibility delay results in more complex future surgery or treatment, Increased loss of function, Continuing or worsening of significant or severe pain, Deterioration of the patient's condition or overall health, Delay expected to result in less-positive ultimate med/surg outcome and Non-surgical alternatives not available or appropriate per current SOC Interval Note History & Physical reviewed/Exam performed by Physician: Yes Changes to H&P: No
[2022-03-12] MEDS: CEFAZOLIN 2 GM/20 ML SYRINGE IV (16:32)
--- NOTE | 2022-03-12 16:56 | SUR.OPER ---
Lithotomy on padded OR bed, head on pillow, arms secured on padded arm boards at <90 degrees abduction. Legs secured in padded yellow fins stirrups. Directed and approved by surgeon.
[2022-03-12] MEDS: BELLADONNA/OPIUM SUPPOSITORIES 1 EACH PR (17:52)
[2022-03-12] MEDS: KETOROLAC 30 MG/ML VIAL IV (18:17)
[2022-03-18 04:38] LABS: Ca oxalate dihydrate 60 % (.); Ca oxalate monohydr 30 % (.); Hydroxyapatite 10 % (.); Size 3x3 mm (.)
--- NOTE | 2022-04-12 10:33 | P.OP_ITS ---
Operative Date/Time/Diagnoses Date of procedure: 03/12/22 Time of procedure: 09:00 Pre-op diagnosis: 1. Obstructing 8 mm left distal ureteral calculus. 2. History of urosepsis. 3. Left renal colic. Post-op diagnosis: same Procedure & Clinicians Procedure: 1. Cystoscopy/left ureteroscopic laser lithotripsy. 2. Cystoscopy/placement left ureteral stent. Same procedure as scheduled: Yes Indications: 1. Obstructing 8 mm left distal ureteral calculus. 2. History of urosepsis. 3. Left renal colic. Surgeon: Burt Cannon Click Yes if Unassisted: Yes Anesthesia Type: General Operative Notes Findings: 1. Urethra-normal caliber without lesion or obstruction. 2. Bladder-normal urothelium. Normal appearing ureteral orifices bilaterally. No evidence of stone, diverticulum, or tumor foreign body. 3. Left ureter-index calculus located in approximately the proximal distal 1/3 segment of the left ureter. Closure Type: not applicable Specimen(s): none sent Applied: other (Six Belgian by 22-32 cm multi-length stent.) Estimated Blood Loss (mL): 0 Blood products transfused: none Procedure in detail: Patient was positioned supine was administered general anesthesia. She was then repositioned semi lithotomy and the lower abdomen, genitalia, and groin were then prepped and draped in sterile fashion. The 22 Belgian panendoscope was then passed a lower urinary tract with the findings as described above. Next a 0.35 hybrid guidewire was advanced through the working channel of the panendoscope and advanced in the left ureter and advanced proximally under direct fluoroscopic guidance. Panendoscope was then backloaded off the guidewire. The guidewire was then secured to the operative drape. Next, the semi rigid ureteral scope was repaired and was advanced into the urethral meatus and then into the left ureteral orifice and advanced carefully and the proximal direction or upon the index stone was encountered. A 200 micron laser fiber was requested. All operating room personnel and patient were fitted with laser safety eyewear. Lithotripsy was then commenced with excellent resultant stone comminution. The fragments and Promise were then cleared from the distal ureter using both mechanical and hydrostatic methods. Ureteral scope was then removed. The 22 Belgian panendoscope was then front loaded on the hybrid safety guidewire. A 6 Belgian by 22-32 cm multi-length stent was then requested. This was advanced over the hybrid guidewire under direct and fluoroscopic guidance. A RETRIEVAL LINE WAS LEFT ATTACHED. The bladder was then drained completely and all instrumentation was removed. The patient was repositioned supine, was awakened, was transferred to [facility], and then was transported recovery in stable condition. Complications: none Post-operative Condition: stable Disposition: PACU Plan for aftercare: Discharge home.
== END 2022-03-12 18:50 | disposition home or self-care (01) ==
PROVIDERS: PCP Student in an Organized Health Care Education/Training Program; Referring Provider Specialist; Visit Provider Specialist
PROC: (CPT 52356; principal; 2022-03-12 15:15)
DX: N20.1 Calculus of ureter (principal); Z20.822 Contact with and (suspected) exposure to COVID-19; J45.909 Unspecified asthma, uncomplicated
CPT/HCPCS: 52356; 74018; 76000; 82365; 87635; J0690; J1885; J2250; J2704; J3010

== ENCOUNTER → 2022-03-20 10:52 | Outpatient (ROUT) | payer OTHER, SELFPAY ==
[2021-12-19 10:12] VITALS: BMI 28.2
[2022-03-23 14:24] LABS: Ca oxalate dihydrate 40 % (.); Ca oxalate monohydr 50 % (.); Hydroxyapatite 10 % (.); Size 2x1 mm (.)
== END ==
PROVIDERS: PCP Student in an Organized Health Care Education/Training Program; Visit Provider Specialist
DX: N20.0 Calculus of kidney (principal); N20.1 Calculus of ureter
CPT/HCPCS: 82365

== ENCOUNTER 2022-04-06 06:25 | Emergency (ER) | payer OTHER, SELFPAY ==
[2021-12-19 10:12] VITALS: BMI 28.2
[2022-04-06] VITALS (7 sets, daily range): BP systolic 122–148; BP diastolic 70–85; PULSE 54–67; RESP 18; TEMP 36.3; O2SAT 96–99; BMI 27.7
--- NOTE | 2022-04-06 06:37 | DI.US.S_ITS ---
PROCEDURE: US PERIPH VENOUS LOW EXTREM RT INDICATIONS: pain and swelling popliteal fossa TECHNIQUE: Real-time imaging, as well as color and pulse Doppler interrogation, were performed of the lower extremity deep veins from the inguinal ligament to the popliteal fossa. COMPARISON: None. FINDINGS: The common femoral, femoral and popliteal veins are normally compressible, and free of intraluminal thrombus. Color and pulse Doppler demonstrate normal phasic intraluminal flow. There is normal augmentation response to distal compression maneuver. There is thrombus in the greater saphenous vein inferior to the knee in the proximal calf, compatible with superficial thrombophlebitis. History of ablation and the several femoral junction. IMPRESSION: 1. No DVT in the right lower extremity. 2. Superficial thrombophlebitis of the greater saphenous vein in the proximal calf. Dictated by: Dorothea Corrales M.D. on 04/06/2022 at 7:52 Approved by: Dorothea Corrales M.D. on 04/06/2022 at 7:57
--- NOTE | 2022-04-06 06:48 | ED_ITS ---
HPI - Extremity Problem <Jersey Araizajac DO - Last Filed: 04/08/22 00:34> General Chief complaint: Extremity Problem,Nontraumatic Stated complaint: right leg pain/lump x1 day Time Seen by Provider: 04/06/22 06:37 Source: patient Mode of arrival: Ambulatory History of Present Illness HPI Narrative: 61-year-old female nonsmoker with history of kidney stones, reactive airway disease, and varicose veins with prior superficial varicosities presents for evaluation of a painful lump behind her right calf. She denies any overuse or traumatic injury. She is had no fever or chills. She states that she noticed a tender lump in her right calf yesterday and was hoping it would improve over the course of the night and this morning the pain has intensified and now seems to radiate down her leg a bit. She denies any redness or obvious warmth. She states that it hurts worse when she walks and improves with rest. She denies any recent travel, trauma, known cancer or history of deep clots Related Data Home Medications Medication Instructions Recorded Confirmed fluticasone propionate 115 2 puff inhalation BID 10/09/21 03/08/22 mcg-salmeterol 21 mcg/actuation HFA inhaler (Advair HFA) estradiol 0.0125 % intrauterine .twice a week 12/20/21 03/08/22 cetirizine 10 mg tablet 10 mg PO DAILY 02/07/22 03/12/22 fluticasone propionate 115 puff inhalation 1-2XD 03/12/22 mcg-salmeterol 21 mcg/actuation HFA inhaler (Advair HFA) Previous Rx's Medication Instructions Recorded hydrochlorothiazide 12.5 mg tablet 12.5 mg PO QAM #90 tabs 12/19/21 alfuzosin 10 mg tablet,extended 10 mg PO DAILY #30 tabs 03/02/22 release 24 hr oxycodone 5 mg tablet 5 mg PO Q4H PRN pain #20 tabs 03/08/22 oxycodone 5 mg tablet 5 mg PO Q4H PRN pain #14 tabs 03/12/22 apixaban 5 mg (74 tabs) tablets in See Rx Instructions PO .COMPLEX 04/06/22 a dose pack (Ticketbisquis DVT-PE Treat #74 ea 30D Start) Allergies Allergy/AdvReac Type Severity Reaction Status Date / Time Sulfa (Sulfonamide Allergy Unknown Hives, Verified 03/12/22 13:49 Antibiotics) rash, swelling tamsulosin AdvReac Mild Makes her Verified 03/12/22 13:49 jittery Review of Systems <Jersey Arthur DO - Last Filed: 04/08/22 00:34> Review of Systems Narrative: GENERAL: Denies chills, fatigue, malaise, fever, sweats. HEENT: Denies sinus pain, ear pain, sore throat, difficulty swallowing, dizziness. RESPIRATORY: Denies dyspnea, cough, wheezing, hemoptysis, sputum. CARDIOVASCULAR: Denies chest pain, palpitations, orthopnea, edema, GASTROINTESTINAL: Denies nausea, vomiting, abdominal pain, diarrhea, constipation, melena. : Denies dysuria, frequency, incontinence, hematuria, urinary retention. MUSCULOSKELETAL: See HPI SKIN: Denies rash, skin lesions, or other NEUROLOGIC: Denies weakness, headache, numbness, change in speech, confusion, seizures, incoordination. PSYCHIATRIC: No concerning psychosocial issues. 12 point review of systems is negative except for those stated above Patient History <Jersey Arthur DO - Last Filed: 04/08/22 00:34> Medical History Asthma Biceps tendinitis of right shoulder Eczema History of UTI Impaired vision Kidney stones Left ureteral calculus Postmenopausal atrophic vaginitis Prediabetes Renal calculus, left Rotator cuff tear, right Surgical History History of History of cystoscopy Tubal ligation status Family History Mother Myocardial infarction Father Unspecified aircraft accident injuring occupant, sequela Kidney stones Social History marital status: number of children: 5 household members: spouse and children Smoking Status: Never smoker alcohol intake: former Smoking Status: Never smoker alcohol intake frequency: holidays/special occasions only Substance Use Type: does not use Exam <Jersey rAthur DO - Last Filed: 04/08/22 00:34> Narrative Exam Narrative: GEN: AOx3 and in minimal obvious distress, resting comfortably, perhaps a bit anxious EYES: Pupils are equal, round, and reactive to light and accommodation. Extraoccular muscles are intact bilaterally. There is no subconjunctival hemorrhage or exudate. CHEST: Lungs are clear to auscultation bilaterally and free of wheezes, rales, or rhonchi. Heart rate is regular rhythm, there are no murmurs, clicks, rubs, or gallops. There is no chest wall tenderness. ABD: Abdomen is soft and nontender. There is no guarding or rebound. Bowel sounds are normal in all 4 quadrants. There is no mass or organomegaly. EXT: Palpable rope-like tender mass in the posterior right calf without flu ctuance, surrounding erythema, induration or lymphangitis. No joint line tenderness, effusion of the knee or ligamentous laxity. SKIN: Warm, pink, and dry. No erythema or rash Initial Vital Signs Initial Vital Signs: Vital Signs Pulse Rate 67 04/06/22 06:33 Pulse Oximetry 98 04/06/22 06:33 <Pradip Ling MD - Last Filed: 04/06/22 08:50> Initial Vital Signs Initial Vital Signs: Vital Signs Pulse Rate 67 04/06/22 06:33 Pulse Oximetry 98 04/06/22 06:33 Course <Jersey Arthur DO - Last Filed: 04/08/22 00:34> Orders Ordered: ED Orders 04/06/22 06:37 US periph venous low extrem rt Stat Vital Signs Vital signs: Vital Signs - 8 hr 04/06/22 06:37 Temperature 97.4 F L Pulse Rate 61 Respiratory Rate 18 Blood Pressure 148/71 H Pulse Oximetry 99 Oxygen Delivery Method Room Air <Pradip Ling MD - Last Filed: 04/06/22 08:50> Orders Ordered: ED Orders 04/06/22 06:37 US perip venous low extrem rt Stat IMPRESSION:? ? 1. No DVT in the right lower extremity. 2. Superficial thrombophlebitis of the greater saphenous vein in the proximal calf.? ? ? Dictated by: Dorothea Corrales M.D. on 04/06/2022 at 7:52 ? ? Approved by: Dorothea Corrales M.D. on 04/06/2022 at 7:57 ? Vital Signs Vital signs: Vital Signs - 8 hr 04/06/22 06:37 Temperature 97.4 F L Pulse Rate 61 Respiratory Rate 18 Blood Pressure 148/71 H Pulse Oximetry 99 Oxygen Delivery Method Room Air <Pradip Ling MD - Last Filed: 04/06/22 08:50> MDM Narrative Medical decision making narrative: I assumed care of this patient from Dr. Arthur at approximately 7:00 a.m.. I reviewed the documentation and interviewed the patient myself. The ultrasound shows superficial thrombophlebitis of the greater saphenous vein. I recommend systemic anticoagulation and outpatient follow-up. This is based on the current intermediate risk of propagation to become DVT. Discharge Plan Departure Patient Disposition: Home Clinical Impression: Superficial vein thrombosis Activity Restrictions/Additional Instructions: You have superficial thrombophlebitis of the greater saphenous vein. The data that I used to make decisions suggests that treatment with anticoagulation therapy is appropriate and indicated to prevent propagation into the deep vein system. I recommend apixaban as prescribed. If this is not covered by her insurance, please have the pharmacist call me and I will make a change probably to warfarin plus an injectable anticoagulant he needs to take for a few days while the warfarin is becoming active. Otherwise, plan on seeing your doctor early next week for follow-up. I recommend immediate urgent follow-up if he develops chest pain or shortness of breath or fainting. These latter symptoms would be very unlikely. I also recommend compression on the area of your leg that hurts, the application of warm compresses and ibuprofen regularly. Prescriptions: [facility] DVT-PE Treat 30D Start 5 mg (74 tabs) tablets,dose pack See Rx Instructions .ROUTE .COMPLEX Qty: 74 0RF Rx Instructions: orally per package directions No Action estradiol 0.0125 % intrauterine .twice a week alfuzosin 10 mg tablet extended release 24 hr 10 mg PO DAILY Qty: 30 3RF Rx Instructions: administer after the same meal each day Advair HFA 115-21 mcg/actuation Hfa Aerosol Inhaler 2 puff INHALATION BID Advair HFA 115-21 mcg/actuation HFA aerosol inhaler INHALATION 1-2XD oxycodone 5 mg tablet 5 mg PO Q4H PRN (Reason: pain) Qty: 14 0RF cetirizine 10 mg tablet 10 mg PO DAILY hydrochlorothiazide 12.5 mg tablet 12.5 mg PO QAM Qty: 90 3RF oxycodone 5 mg tablet 5 mg PO Q4H PRN (Reason: pain) Qty: 20 0RF Referrals: Yadira Del Rosario MD [Primary Care Provider] - Visit Report Forms: Patient Portal/API
== END 2022-04-06 09:24 | disposition home or self-care (01) ==
PROVIDERS: Emergency Provider Family Medicine Addiction Medicine; PCP Student in an Organized Health Care Education/Training Program
DX: I82.811 Embolism and thrombosis of superficial veins of right lower extremity (principal)
CPT/HCPCS: 93971; 99283

== ENCOUNTER → 2023-04-18 11:26 | Outpatient (CLI) | payer OTHER, SELFPAY ==
[2021-12-19 10:12] VITALS: BMI 28.2
[2023-04-18 12:43] LABS: Add Manual Diff / Slide Review NO; Basophils Absolute Auto 100 /uL (0-100); Basophils Percent Auto 1.4 % (0-2); Eosinophils Absolute Auto 400 /uL (0-450); Eosinophils Percent Auto 9.7 % (2-4); Hematocrit 40.4 % (36-46); Hemoglobin 13.6 g/dL (12.0-16.0); Lymphocytes Absolute Auto 700 /uL (1100-4500); Lymphocytes Percent Auto 16.3 % (25-40); Mean Corpuscular HGB Conc 33.7 % (30-36); Mean Corpuscular Hemoglobin 28.7 PG (26-34); Mean Corpuscular Volume 85.2 fL (80-100); Monocytes Absolute Auto 200 /uL (0-900); Monocytes Percent Auto 5.3 % (3-14); Neutrophils Absolute Auto 2800 /uL (1500-7000); Neutrophils Percent Auto 67.3 % (50-75); Platelet Count 209 X10^3/uL (150-400); Red Blood Cell Count 4.74 X10^6/uL (4.0-5.2); Red Cell Distribution Width 14.1 % (11.6-14.8); White Blood Cell Count 4.2 X10^3/uL (4.5-11.0)
[2023-04-18 13:10] LABS: Alanine Aminotransferase 49 IU/L (<35); Albumin 4.4 g/dL (3.5-5.0); Albumin Globulin Ratio 1.5 (1.0-2.8); Alkaline Phosphatase 107 U/L (38-126); Aspartate Aminotransferase 36 IU/L (14-36); BUN Creatinine Ratio 18.8 (6-22); Bilirubin Total 0.7 mg/dL (0.2-1.3); Blood Urea Nitrogen 15 mg/dL (7-17); Calcium 9.4 mg/dL (8.4-10.2); Carbon Dioxide 28 mmol/L (22-32); Chloride 99 mmol/L (98-107); Estimated Glomerular Filt Rate > 60 mL/min (>60); Glucose 216 mg/dL (80-110); HEMOLYSIS < 15 (0-50); Potassium 3.4 mmol/L (3.4-5.1); Sodium 137 mmol/L (137-145); Total Protein 7.4 g/dL (6.3-8.2)
== END ==
PROVIDERS: PCP Student in an Organized Health Care Education/Training Program; Referring Provider Surgery; Visit Provider Surgery
DX: K80.20 Calculus of gallbladder without cholecystitis without obstruction (principal)
CPT/HCPCS: 36415; 80053; 85025

== ENCOUNTER 2023-06-04 10:48 | Day surgery (SDC) | payer OTHER, SELFPAY ==
[2021-12-19 10:12] VITALS: BMI 28.2
[2023-05-29 12:29] VITALS: BMI 31.4
[2023-05-30 15:00] VITALS: BMI 30.3
[2023-06-04] VITALS (10 sets, daily range): BP systolic 114–139; BP diastolic 59–96; PULSE 58–76; RESP 10–19; TEMP 36.3–36.8; O2SAT 92–98; BMI 30.3
--- NOTE | 2023-06-04 | PATH_ITS ---
[facility] Accession Number: [id number] No. of containers..01 Tissue . 01 Material submitted: . gallbladder - GALLBLADDER . 01 Diagnosis: Gallbladder, Cholecystectomy: Cholelithiasis. No evidence of neoplasm. MRV 06/07/2023 1317 Local . 01 Electronically signed: . Chris Malloy MD, PhD, Pathologist NPI- [id number] . 01 Gross description: . The specimen is received in formalin labeled with the patient's name, , and gallbladder consists of an intact gallbladder measuring 7.2 x 3.5 x 3.4 cm. The cystic duct margin is inked blue, and no pericystic lymph node is identified. The lumen is filled with dark green viscous bile and multiple small, yellow, bosselated calculi measuring up to 0.5 cm in greatest dimension not grossly obstructing the cystic duct. The mucosa is green and velvety with yellow areas of discoloration and no polyps or lesions identified. The craig average 0.2 cm thick, and asset protection representative sections to include the cystic duct margin and full thickness sections are submitted in cassette A1. ([id number]) /MRV 06/05/2023 1305 Local . 01 Pathologist provided ICD-10: K80.20 . 01 CPT . 306851 Specimen Comment: A courtesy copy of this report has been sent to [phone] Performed at: 01 [facility] [address] [place] [address], [place], [place] [id number] MD Jethro Adan MD Phone: [phone]
[2023-06-04] MEDS: LACTATED RINGERS 1,000 ML 100 ML IV (11:12)
--- NOTE | 2023-06-04 12:11 | PM.HP.1 ---
History of Present Illness History of Present Illness Date Patient Seen: 06/04/23 Time Patient Seen: 12:11 Chief complaint: Laparoscopic Cholecystectomy 06/04 Narrative: Nadege is a 62-year-old woman with symptomatic cholelithiasis. She is here for her laparoscopic cholecystectomy. Please see the office note from April for details. There have been no major health changes since then. [facility] Medical History Asthma Biceps tendinitis of right shoulder Eczema History of nephrolithiasis History of UTI Impaired vision Kidney stones Left ureteral calculus Postmenopausal atrophic vaginitis Prediabetes Renal calculus, left Rotator cuff tear, right UTI (urinary tract infection) Surgical History History of History of cystoscopy Tubal ligation status Family History Mother Myocardial infarction Father Unspecified aircraft accident injuring occupant, sequela Kidney stones Social History marital status: number of children: 5 household members: spouse and children Smoking Status: Never smoker alcohol intake: current Meds Home Medications and Allergies Home Medications Medication Instructions Recorded Confirmed Type fluticasone propionate 115 2 puff inhalation BID 10/09/21 06/04/23 History mcg-salmeterol 21 mcg/actuation HFA inhaler (Advair HFA) cetirizine 10 mg tablet 10 mg PO DAILY 02/07/22 06/04/23 History hydrochlorothiazide 25 mg tablet 25 mg PO DAILY 04/17/23 06/04/23 History montelukast 10 mg tablet 10 mg PO DAILY 04/17/23 06/04/23 History omeprazole 20 mg capsule,delayed 20 mg PO DAILY 04/17/23 06/04/23 History release diphenhydramine 25 1 tab PO BEDTIME PRN insomia 05/30/23 05/30/23 History mg-acetaminophen 500 mg tablet (Tylenol PM Extra Strength) melatonin 10 mg chewable tablet 10 mg PO BEDTIME 05/30/23 06/04/23 History Allergies Allergy/AdvReac Type Severity Reaction Status Date / Time Sulfa (Sulfonamide Allergy Unknown Hives, Verified 06/04/23 10:57 Antibiotics) rash, swelling tamsulosin AdvReac Mild Makes her Verified 06/04/23 10:57 jittery Exam Vital Signs (past 8 hours): - 06/04/23 11:29 Temperature 98.2 F Pulse Rate 73 Respiratory Rate 18 Blood Pressure 134/74 Pulse Oximetry 96 Oxygen Delivery Method Room Air Oxygen Delivery Method Room Air Const General: healthy appearing Assessment & Plan Assessment and plan (1) Cholelithiasis: Qualifiers: Cholelithiasis location: gallbladder Cholecystitis presence: without cholecystitis Biliary obstruction: without biliary obstruction Qualified Code(s): K80.20 - Calculus of gallbladder without cholecystitis without obstruction Status: Acute Plan We reviewed the risks and benefits of laparoscopic cholecystectomy and she would like to proceed.
[2023-06-04] MEDS: CEFAZOLIN 2 GM/100 ML PREMIX 100 ML IV (12:36)
--- NOTE | 2023-06-04 13:15 | SUR.OPER ---
Supine on padded OR bed, head on pillow, safety belt at thigh, left arm padded and tucked at side. Right arm secured on padded arm board <90 degrees abduction. Legs uncrossed. Padded footboard in place. Tape over blanket to secure lower legs.
--- NOTE | 2023-06-04 13:44 | P.OP_ITS ---
Operative Date/Time/Diagnoses Date of procedure: 06/04/23 Time of procedure: 13:44 Pre-op diagnosis: Cholelithiasis Post-op diagnosis: same Procedure & Clinicians Procedure: Laparoscopic cholecystectomy Same procedure as scheduled: Yes Surgeon: Oracio Wilcox Financial Service Representative: Jose Martinez Anesthesia Type: General Operative Notes Procedure in detail: The patient was given preoperative antibiotic. The patient was brought to the operating room, placed on the table in the supine position. General endotracheal anesthesia was induced. The abdomen was prepped and draped. A time-out was performed. We made a 1 cm infraumbilical incision. We dissected down to the base of the umbilical stalk using cautery. We found there was a 1 cm umbilical hernia and used it to enter the abdominal cavity bluntly. The Gracia port was placed and the abdomen was insufflated to 15 mmHg. A 5 mm 30 degree laparoscopic was inserted. There was no evidence of any injury from the entry. Next, we placed 5 mm ports in the subxiphoid position and right upper quadrant at the midclavicular line and anterior axillary line. The patient was then positioned in reverse Trendelenburg and the table was tilted to the left. The gallbladder was grasped at the dome and retracted cephalad. There were some filmy adhesions to the duodenal which were taken down under direct vision. We then dissected the cystic structures with a combination of hook cautery and blun t dissection. We obtained a critical view. We placed clips on the cystic duct and artery and divided the cystic duct and artery sharply between the clips. The gallbladder was then dissected off the liver and placed in a specimen retrieval bag. We irrigated the right upper quadrant and all the aspirate returned clear. We then removed the 5 mm ports under direct vision we removed the Gracia port. We then injected some local into the fascia and closed the fascia with 2 interrupted 0 Vicryl sutures. The skin incisions were closed with 4-0 Monocryl and Steri-Strips were applied. Band-Aids were applied over the Steri-Strips. EBL: 15 mL Specimen: Gallbladder Post-operative Condition: stable Disposition: PACU
[2023-06-04] MEDS: HYDROMORPHONE 1 MG INJ IV ×2 (14:06→14:16)
[2023-06-04] MEDS: hydrOXYzine 50 MG/ML INJ 25 MG IM (14:21)
[2023-06-04] MEDS: OXYCODONE IR 5 MG TABLET PO (14:41)
== END 2023-06-04 16:25 | disposition home or self-care (01) ==
PROVIDERS: PCP Student in an Organized Health Care Education/Training Program; Referring Provider Surgery; Visit Provider Surgery
PROC: 0FT44ZZ Resection of Gallbladder, Percutaneous Endoscopic Approach (ICD-10-PCS; CPT 47562; principal; 2023-06-04 12:15)
DX: K80.20 Calculus of gallbladder without cholecystitis without obstruction (principal)
CPT/HCPCS: 47562; J0330; J0690; J1100; J1170; J2405; J2704; J3010; J3410

== ENCOUNTER → 2023-06-10 09:09 | Outpatient (CLI) | payer OTHER, SELFPAY ==
[2021-12-19 10:12] VITALS: BMI 28.2
[2023-06-10 10:27] LABS: Add Manual Diff / Slide Review NO; Basophils Absolute Auto 100 /uL (0-100); Basophils Percent Auto 1.4 % (0-2); Eosinophils Absolute Auto 400 /uL (0-450); Eosinophils Percent Auto 8.8 % (2-4); Hematocrit 39.6 % (36-46); Hemoglobin 13.5 g/dL (12.0-16.0); Lymphocytes Absolute Auto 700 /uL (1100-4500); Mean Corpuscular HGB Conc 34.1 % (30-36); Mean Corpuscular Hemoglobin 29.2 PG (26-34); Mean Corpuscular Volume 85.6 fL (80-100); Monocytes Absolute Auto 400 /uL (0-900); Monocytes Percent Auto 8.4 % (3-14); Neutrophils Absolute Auto 3100 /uL (1500-7000); Neutrophils Percent Auto 66.4 % (50-75); Platelet Count 229 X10^3/uL (150-400); Red Blood Cell Count 4.62 X10^6/uL (4.0-5.2); Red Cell Distribution Width 14.8 % (11.6-14.8); White Blood Cell Count 4.6 X10^3/uL (4.5-11.0)
[2023-06-10 10:37] LABS: Alanine Aminotransferase 61 IU/L (<35); Albumin 4.5 g/dL (3.5-5.0); Albumin Globulin Ratio 1.6 (1.0-2.8); Alkaline Phosphatase 111 U/L (38-126); Aspartate Aminotransferase 35 IU/L (14-36); Bilirubin Total 0.8 mg/dL (0.2-1.3); Blood Urea Nitrogen 16 mg/dL (7-17); Calcium 10.1 mg/dL (8.4-10.2); Carbon Dioxide 28 mmol/L (22-32); Chloride 100 mmol/L (98-107); Estimated Glomerular Filt Rate > 60 mL/min (>60); Globulin 2.8 g/dL (1.7-4.1); Glucose 104 mg/dL (80-110); HEMOLYSIS < 15 (0-50); Potassium 3.7 mmol/L (3.4-5.1); Sodium 137 mmol/L (137-145); Total Protein 7.3 g/dL (6.3-8.2)
== END ==
PROVIDERS: PCP Student in an Organized Health Care Education/Training Program; Referring Provider Surgery; Visit Provider Surgery
DX: N20.1 Calculus of ureter (principal)
CPT/HCPCS: 36415; 80053; 85025

== ENCOUNTER 2023-07-29 23:01 | Emergency (ER) | payer OTHER, SELFPAY ==
[2021-12-19 10:12] VITALS: BMI 28.2
[2023-07-29] VITALS (7 sets, daily range): BP systolic 127–128; BP diastolic 64–71; PULSE 110–130; RESP 16–18; TEMP 39.5–39.6; O2SAT 91–93; BMI 29.3
--- NOTE | 2023-07-29 23:14 | DI.RAD.S_ITS ---
PROCEDURE: XR CHEST 1V INDICATIONS: suspected sepsis TECHNIQUE: One view of the chest was acquired. COMPARISON: [facility], CR, XR CHEST 1V, 11/20/2021, 13:03. [facility], CR, XR CHEST 1V, 11/15/2021, 22:43. FINDINGS: Surgical changes and devices: None. Lungs and pleura: Lungs are clear. No pleural effusions or pneumothorax. Mediastinum: Mediastinal contours appear normal. Heart size is normal. Bones and chest wall: No suspicious bony lesions. Overlying soft tissues appear unremarkable. IMPRESSION: Portable chest within normal limits for age. Dictated by: Carlos Pablo M.D. on 07/29/2023 at 23:29 Approved by: Carlos Pablo M.D. on 07/29/2023 at 23:29
[2023-07-29] MEDS: SODIUM CHLORIDE 0.9% 1,000 ML 1000 ML IV (23:32)
[2023-07-29 23:33] LABS: INR 1.1 (0.9-1.3); Prothrombin Time 12.8 SECONDS (10.1-12.7)
[2023-07-29 23:36] LABS: Add Manual Diff / Slide Review NO; Basophils Absolute Auto 100 /uL (0-100); Basophils Percent Auto 0.5 % (0-2); Eosinophils Absolute Auto 100 /uL (0-450); Eosinophils Percent Auto 1.1 % (2-4); Hematocrit 39.4 % (36-46); Hemoglobin 13.5 g/dL (12.0-16.0); Lactate (Lactic Acid) 2.2 mmol/L (0.7-2.1); Lymphocytes Absolute Auto 500 /uL (1100-4500); Mean Corpuscular HGB Conc 34.2 % (30-36); Mean Corpuscular Volume 84.6 fL (80-100); Monocytes Absolute Auto 300 /uL (0-900); Monocytes Percent Auto 2.2 % (3-14); Neutrophils Absolute Auto 10900 /uL (1500-7000); Neutrophils Percent Auto 92.2 % (50-75); PTT Partial Thromboplastin Tim 28 SECONDS (26-36); Platelet Count 216 X10^3/uL (150-400); Red Blood Cell Count 4.66 X10^6/uL (4.0-5.2); Red Cell Distribution Width 14.6 % (11.6-14.8); White Blood Cell Count 11.9 X10^3/uL (4.5-11.0)
[2023-07-29 23:37] LABS: Alanine Aminotransferase 207 IU/L (<35); Albumin 4.4 g/dL (3.5-5.0); Albumin Globulin Ratio 1.2 (1.0-2.8); Alkaline Phosphatase 316 U/L (38-126); Aspartate Aminotransferase 156 IU/L (14-36); BUN Creatinine Ratio 17.3 (6-22); Bilirubin Total 2.3 mg/dL (0.2-1.3); Blood Urea Nitrogen 14 mg/dL (7-17); Calcium 9.6 mg/dL (8.4-10.2); Carbon Dioxide 24 mmol/L (22-32); Chloride 98 mmol/L (98-107); Estimated Glomerular Filt Rate > 60 mL/min (>60); Globulin 3.6 g/dL (1.7-4.1); Glucose 189 mg/dL (80-110); HEMOLYSIS < 15 (0-50); Potassium 3.3 mmol/L (3.4-5.1); Sodium 135 mmol/L (137-145)
[2023-07-29 23:39] LABS: Bacteria Urine Many (>30); Culture Indicated Urine Specimen Cultured; RBC Urine 0-1/HPF (0-5/HPF); Squamous Epithelial Cell Urine 1-5 /HPF (0-5/HPF); WBC Urine 30-100/HPF (0-5/HPF)
[2023-07-29 23:54] LABS: Procalcitonin 0.35 ng/mL (<0.5)
[2023-07-30] VITALS (17 sets, daily range): BP systolic 97–130; BP diastolic 54–66; PULSE 66–103; RESP 0–39; TEMP 36.8–37.6; O2SAT 91–95
--- NOTE | 2023-07-30 00:02 | PC.NURSE ---
Pt had recent travel to a conference attended by over 1000 people. Pt symptoms of generalized malaise, cough and fever began Saturday. Currently reporting dizziness. Encouraged to use call light for all needs.
[2023-07-30 00:06] LABS: Lipase 91 U/L (23-300)
--- NOTE | 2023-07-30 00:06 | ED.GENADULT ---
HPI - General Adult General Chief complaint: Fever Stated complaint: possible kidney stone, shaking Time Seen by Provider: 07/29/23 23:20 Source: patient and family Mode of arrival: Ambulatory History of Present Illness HPI narrative: 62-year-old woman status post laparoscopic cholecystectomy June 04, 2023 with a history of kidney stones and recurrent urinary tract infections presents with 48 hours of acute illness with myalgias, she began having rigors this evening, slight cough, recent airline travel. No urinary symptoms today. She noted that due to the severity of the rigors this evening she had some dry heaves but no actual emesis. Has not had diarrhea or constipation. He is not complaining of chest pain, palpitations or dyspnea. Related Data Home Medications Medication Instructions Recorded Confirmed fluticasone propionate 115 2 puff inhalation BID 10/09/21 06/10/23 mcg-salmeterol 21 mcg/actuation HFA inhaler (Advair HFA) cetirizine 10 mg tablet 10 mg PO DAILY 02/07/22 06/10/23 hydrochlorothiazide 25 mg tablet 25 mg PO DAILY 04/17/23 06/10/23 montelukast 10 mg tablet 10 mg PO DAILY 04/17/23 06/10/23 omeprazole 20 mg capsule,delayed 20 mg PO DAILY 04/17/23 06/10/23 release diphenhydramine 25 1 tab PO BEDTIME PRN insomia 05/30/23 06/10/23 mg-acetaminophen 500 mg tablet (Tylenol PM Extra Strength) melatonin 10 mg chewable tablet 10 mg PO BEDTIME 05/30/23 06/10/23 Previous Rx's Medication Instructions Recorded hydrocodone 5 mg-acetaminophen 325 1 tab PO Q8H PRN pain #10 tabs 06/04/23 mg tablet levofloxacin 750 mg tablet 750 mg PO DAILY #10 tabs 07/30/23 Allergies Allergy/AdvReac Type Severity Reaction Status Date / Time Sulfa (Sulfonamide Allergy Unknown Hives, Verified 07/29/23 23:20 Antibiotics) rash, swelling tamsulosin AdvReac Mild Makes her Verified 07/29/23 23:20 jittery Review of Systems Review of Systems Narrative: Pertinent positive and negative findings as per HPI Patient History Medical History UTI (urinary tract infection) History of nephrolithiasis Postmenopausal atrophic vaginitis History of UTI Renal calculus, left Left ureteral calculus Kidney stones Impaired vision Eczema Prediabetes Asthma Biceps tendinitis of right shoulder Rotator cuff tear, right Surgical History History of History of cystoscopy Tubal ligation status Family History Mother Myocardial infarction Father Unspecified aircraft accident injuring occupant, sequela Kidney stones Social History marital status: number of children: 5 household members: spouse and children Smoking Status: Never smoker alcohol intake: current Smoking Status: Never smoker alcohol intake frequency: holidays/special occasions only Substance Use Type: does not use Exam Initial Vital Signs Initial Vital Signs: Vital Signs Temperature 103.2 F H 07/29/23 23:03 Pulse Rate 130 H 07/29/23 23:03 Respiratory Rate 16 07/29/23 23:03 Blood Pressure 127/69 07/29/23 23:03 Pulse Oximetry 93 07/29/23 23:03 Oxygen Delivery Method Room Air 07/29/23 23:03 General: Ill-appearing but, in no acute distress. Able to give a complete and coherent history. Well-nourished well-developed HEENT: Moist mucous membranes, normal sclera with reactive pupils, Neck: No JVD, supple, no cervical adenopathy Respiratory: Lungs are clear to auscultation, no wheezing no rales no rhonchi. Full and symmetrical air movement Cardiac: Tachycardic but otherwise Regular rate and rhythm no murmurs no bruits Abdomen: Soft, mild diffuse abdominal tenderness without rebound or guarding, no flank pain Skin: Slightly pale but otherwise Warm and dry, no rashes Neurologic: Globally weak, Grossly neurologically intact with no obvious asymmetries or abnormalities Extremities: No trauma, well perfused Psych: Cooperative, appropriate insight and affect Course Orders Ordered: ED Orders 07/29/23 23:14 XR chest 1V Stat EKG-12 Lead Stat RT Consult Eval and Treat NOW 07/29/23 23:15 Complete Blood Count AUTO DIFF Stat Comprehensive Metabolic Panel Stat Lactate (Lactic Acid) Stat Lipase Stat PTT Partial Thromboplastin Shane Stat Procalcitonin Stat Prothrombin Time INR Stat 07/29/23 23:19 Respiratory Panel (Film Array) Stat 07/29/23 23:22 Urine Culture Stat Urine Microscopic Stat 07/29/23 23:40 Blood Culture Stat 07/30/23 00:17 CT abdomen pelvis w con Stat Sodium Chloride (Normal Saline 0.9%) 1,779 mls @ 593 mls/hr 30 ml/kg infuse over 3 hr (1779 ml) IV NOW ONE Stop: 07/30/23 03:16 Last Admin: 07/30/23 00:29 Dose: 593 mls/hr Documented By: YEIMI Ondansetron HCl (Ondansetron 4 Mg/2 Ml Inj) 4 mg IV NOW PRN PRN Reason: Nausea And Vomiting Ondansetron HCl (Ondansetron 4 Mg Odt) 4 mg SL NOW PRN PRN Reason: Nausea And Vomiting Discontinued Medications Sodium Chloride (Normal Saline 0.9%) 1,000 mls @ 1,000 mls/hr IV BOLUS ONE Stop: 07/30/23 00:13 Last Infusion: 07/30/23 00:27 Dose: Infused Documented By: Admin: 07/29/23 23:32 Dose: 1,000 mls/hr Documented By: LINDA Piperacillin Sod/Tazobactam (Sod 4.5 gm/ Sodium Chloride) 100 mls @ 200 mls/hr IV NOW ONE Stop: 07/30/23 00:18 Last Admin: 07/30/23 00:32 Dose: 200 mls/hr Documented By: YEIMI Vital Signs Vital signs: Vital Signs - 8 hr 07/29/23 23:03 07/29/23 23:07 07/29/23 23:07 Temperature 103.2 F H Pulse Rate 130 H 130 H Respiratory Rate 16 Blood Pressure 127/69 127/69 Pulse Oximetry 93 91 Oxygen Delivery Method Room Air 07/29/23 23:15 07/29/23 23:15 07/29/23 23:40 Temperature Pulse Rate 123 H Respiratory Rate Blood Pressure 128/71 Pulse Oximetry 92 93 Oxygen Delivery Method 07/29/23 23:41 07/29/23 23:41 07/29/23 23:45 Temperature Pulse Rate 113 H Respiratory Rate Blood Pressure 127/67 128/64 Pulse Oximetry 93 Oxygen Delivery Method 07/29/23 23:45 07/29/23 23:47 07/30/23 00:00 Temperature 103.1 F H Pulse Rate 110 H Respiratory Rate 18 Blood Pressure 129/66 Pulse Oximetry 93 Oxygen Delivery Method 07/30/23 00:00 07/30/23 00:15 07/30/23 00:15 Temperature Pulse Rate 103 H 100 H Respiratory Rate 19 39 H Blood Pressure 128/65 Pulse Oximetry 94 95 Oxygen Delivery Method 07/30/23 00:30 07/30/23 00:30 07/30/23 00:43 Temperature Pulse Rate 92 H 100 H Respiratory Rate 21 Blood Pressure 111/58 L Pulse Oximetry 93 95 Oxygen Delivery Method Room Air 07/30/23 00:43 Temperature Pulse Rate Respiratory Rate Blood Pressure 130/64 Pulse Oximetry Oxygen Delivery Method Medical Decision Making Lab Data 07/29/23 23:15 07/29/23 23:15 Labs: Lab Results 07/29/23 07/29/23 07/29/23 Range/Units 23:15 23:19 23:22 WBC 11.9 H (4.5-11.0) X10^3/uL RBC 4.66 (4.0-5.2) X10^6/uL Hgb 13.5 (12.0-16.0) g/dL Hct 39.4 (36-46) % MCV 84.6 (80-100) fL MCH 29.0 (26-34) PG MCHC 34.2 (30-36) % RDW 14.6 (11.6-14.8) % Plt Count 216 (150-400) X10^3/uL Neut % (Auto) 92.2 H (50-75) % Lymph % (Auto) 4.0 L (25-40) % [place] % (Auto) 2.2 L (3-14) % Eos % (Auto) 1.1 L (2-4) % Baso % (Auto) 0.5 (0-2) % Neut # (Auto) 47401 H (7599-9544) /uL Lymph # (Auto) 500 L (9478-0931) /uL [place] # (Auto) 300 (0-900) /uL Eos # (Auto) 100 (0-450) /uL Baso # (Auto) 100 (0-100) /uL PT 12.8 H (10.1-12.7) SECONDS INR 1.1 (0.9-1.3) APTT 28 (26-36) SECONDS Sodium 135 L (137-145) mmol/L Potassium 3.3 L (3.4-5.1) mmol/L Chloride 98 (98-107) mmol/L Carbon Dioxide 24 (22-32) mmol/L BUN 14 (7-17) mg/dL Creatinine 0.81 (0.52-1.04) mg/dL Estimated GFR > 60 (>60) mL/min BUN/Creatinine Ratio 17.3 (6-22) Glucose 189 H (80-110) mg/dL Lactate 2.2 H (0.7-2.1) mmol/L Calcium 9.6 (8.4-10.2) mg/dL Total Bilirubin 2.3 H (0.2-1.3) mg/dL AST 156 H (14-36) IU/L ALT 207 H (<35) IU/L Alkaline Phosphatase 316 H (38-126) U/L Total Protein 8.0 (6.3-8.2) g/dL Albumin 4.4 (3.5-5.0) g/dL Globulin 3.6 (1.7-4.1) g/dL Albumin/Globulin Ratio 1.2 (1.0-2.8) Lipase 91 (23-300) U/L Procalcitonin 0.35 (<0.5) ng/mL Urine RBC 0-1/hpf (0-5/HPF) Urine WBC 30-100/hpf H (0-5/HPF) Ur Squamous Epith Cells 1-5 /hpf (0-5/HPF) Urine Bacteria Many (>30) H (None) Ur Culture Indicated? Specimen cultured Chlamy pneumoniae PCR Not detected (Not Detect) Adenovirus (PCR) Not detected (Not Detect) B.parapertussis DNA PCR Not detected (Not Detecte) Coronavirus OC43 (PCR) Not detected (Not Detect) Coronavirus HKU1 (PCR) Not detected (Not Detect) Coronavirus 229E (PCR) Not detected (Not Detect) SARS-CoV-2 (PCR) Not detected (Not Detecte) Coronavirus NL63 (PCR) Not detected (Not Detect) Human Metapneumovir PCR Not detected (Not Detect) Influenza Type A (PCR) Not detected (Not Detect) Influenza Type B (PCR) Not detected (Not Detect) M. pneumoniae (PCR) Not detected (Not Detect) Parainfluenza 1 (PCR) Not detected (Not Detect) Parainfluenza 2 (PCR) Not detected (Not Detect) Parainfluenza 3 (PCR) Not detected (Not Detect) Parainfluenza 4 (PCR) Not detected (Not Detect) RSV (PCR) Not detected (Not Detect) Entero/Rhino (PCR) Detected H (Not Detect) Point of Care Testing Test Results Negative Urine Dip Bedside Urine Glucose Negative Bedside Urine Bilirubin - Negative Bedside Urine Ketone - Negative Urine Specific [place] 1.015 Bedside Urine Occult Blood + Bedside Urine pH 6.0 Bedside Urine Protein ++ 100 Bedside Urine Urobilinogen - Negative Bedside Urine Nitrite + Positive Bedside Urine Leukocytes ++ 125 Esterase Point of care testing: Point of Care Testing Test Results Negative Urine Dip Bedside Urine Glucose Negative Bedside Urine Bilirubin - Negative Bedside Urine Ketone - Negative Urine Specific [place] 1.015 Bedside Urine Occult Blood + Bedside Urine pH 6.0 Bedside Urine Protein ++ 100 Bedside Urine Urobilinogen - Negative Bedside Urine Nitrite + Positive Bedside Urine Leukocytes ++ 125 Esterase MDM Narrative Medical decision making narrative: CC: 48 hours of myalgias rigors today Complicating co-morbidities: Laparoscopic cholecystectomy June 04 Data collected from: patient, Social determinants of health that may influence the patients condition: Medical records reviewed: Recent admission for cholecystectomy, ER notes with kidney stones and superficial thrombophlebitis have been reviewed. Discharge summary from November of 2019 with pyelonephritis is reviewed Differential considered: Sepsis, urinary tract infection, ascending cholangitis, common bile duct stone, viral syndrome Exam documented above, pertinent findings include: She looks like she does not feel well but is not acutely toxic is alert and appropriate and able to cooperate with exam. She is some mild diffuse abdominal tenderness without specific tenderness in the right upper quadrant or flank Lab Test results independently reviewed as above. Pertinent findings: CBC Slight leukocytosis at 11.9 with significant left shift, no anemia Chemistries show slightly low potassium at 3.3. Glucose elevated at 189, lactic elevated at 2.2 Liver studies show bilirubin elevated at 2.3 AST elevated at 156, ALT at 2:07 a.m. and alk-phos 316 Procalcitonin is not elevated Urine does show many bacteria and white blood cells and will be cultured Respiratory panel shows rhino/enterovirus Independently reviewed EKG sinus tachycardia at a rate of 117 with no acute ischemic changes. Otherwise normal intervals and normal axis Imaging studies independently reviewed: Chest x-ray does not show any acute findings Abdominal pelvis CT: Biliary tract is unremarkable with no ductal dilatation, inflammation or common bile duct stones appreciated. Kidneys show significant enhancement of the ureters with regions of hypoattenuation within both renal cortices and no abscesses appreciated. This is interpreted as bilateral pyelonephritis and no evidence of hepatic abnormality or recent cholecystectomy complication. Kidney stones obstruction or hydronephrosis are not noted Treatments: She is given a total of 2 L of IV fluid as well as started on piperacillin tazobactam. Her initial lactic levels come down to normal. She is given a dose of oral levofloxacin prior to discharge Discussion: 62-year-old woman presents with rigors and myalgias. She is positive for rhino/enterovirus and needs no additional treatment for this. Also noted on her workup was urinary tract infection, elevated lactic acid, leukocytosis and liver studies elevated. Because of this a CT scan of her abdomen was obtained. There is no evidence of liver inflammation, retained stone or hepatic or pancreatic dilatation. Given the lack of tenderness in the right upper quadrant I am not suspicious for ascending cholangitis at this time. The CT scan also suggested bilateral pyelonephritis based on renal inflammation. This time there is no evidence of kidney stone or obstructing abnormality to complicated pyelonephritis. With shared decision-making we opted to discharge her home with oral Levaquin for 10 days. I did clearly reviewed with her if her blood cultures do return positive, she will need to return to the emergency department. I also cautioned her regarding the liver function studies and recommended that she follow up with her primary care doctor after she is through this acute episode and have a very low threshold for returning to the emergency department if she develops increasing abdominal or flank pain. All questions are answered and she is safe for discharge Discharge Plan Departure Patient Disposition: Home Clinical Impression: Rhinovirus infection, Pyelonephritis, Elevated LFTs Instructions: DI for Kidney Infection Activity Restrictions/Additional Instructions: Thank you for coming in today Based on your urine sample and your CT scan, it looks like you have a kidney infection affecting both kidneys. You do not have any kidney stones or anything obstructing this time. Based on urine samples from previously, using oral Levaquin should be effective in treating this. I have sent a prescription for 10 days to [facility] in [place] You tested positive for rhino/enterovirus. This in combination with the bladder and kidney infection may explain the severe myalgias, shakes and fever. There are no signs of respiratory distress in you do not need to stay in the hospital because of this upper respiratory infection. Using 400 mg of ibuprofen (2 osdo-yvq-vlnyrnj pills) and 1 Tylenol every 6 hours can be very helpful in controlling pain. Also noted on your blood work were elevated liver studies. This may simply be inflammation as your body is healing after your recent gallbladder removal. The CT scan does not suggest anything abnormal with your liver or the ducts up through your liver to suggest a common bile duct stone or other complications. With shared decision-making, we decided that you would go home recognizing that if your blood cultures return positive we will ask you to return to the hospital. In the meantime, the levofloxacin to treat the bladder and kidney infections is almost equivalent to daily IV antibiotics. If you find that you are getting worse or develop any new symptoms, please feel free to return to the emergency department for further evaluation. Prescriptions: New levofloxacin 750 mg tablet 750 mg PO DAILY Qty: 10 0RF No Action omeprazole 20 mg capsule,delayed release(DR/EC) 20 mg PO DAILY montelukast 10 mg tablet 10 mg PO DAILY hydrochlorothiazide 25 mg tablet 25 mg PO DAILY diphenhydramine-acetaminophen [Tylenol PM Extra Strength] 25-500 mg Tablet 1 tab PO BEDTIME PRN (Reason: insomia) melatonin 10 mg Tablet,Chewable 10 mg PO BEDTIME hydrocodone-acetaminophen 5-325 mg tablet 1 tab PO Q8H PRN (Reason: pain) Qty: 10 0RF fluticasone propion-salmeterol [Advair HFA] 115-21 mcg/actuation Hfa Aerosol Inhaler 2 puff INHALATION BID cetirizine 10 mg tablet 10 mg PO DAILY Referrals: Yadira Del Rosario MD [Primary Care Provider] - Stand Alone Forms: Patient Portal/API
--- NOTE | 2023-07-30 00:17 | DI.CT.S_ITS ---
PROCEDURE: CT ABDOMEN PELVIS W CON INDICATIONS: rigors, elevated LFTs TECHNIQUE: After the administration of intravenous contrast, axial sections acquired from the lung bases to the pubic symphysis. Coronal and sagittal reformats were performed. For radiation dose reduction, the following was used: automated exposure control, adjustment of mA and/or kV according to patient size. COMPARISON: [facility], CT, CT ABDOMEN PELVIS W CON, 11/15/2021, 23:46. FINDINGS: Image quality: Excellent. Lung bases: Unremarkable. Heart: No significant findings. ABDOMEN: Liver: No solid mass. Gallbladder and biliary tree: No intrahepatic or extrahepatic biliary dilation, accounting for a post cholecystectomy state. Spleen: Normal size. Pancreas: No ductal dilation. Adrenal glands: No adrenal nodules. Kidneys: Significant enhancement of the ureters. A few regions hypoattenuation within both renal cortices. No abscess. Stomach and Bowel: Colonic diverticulosis without evidence of diverticulitis. Peritoneum: No abnormal intraperitoneal fluid. No free air. Ventral Wall: No hernias. Abdominal Nodes: No retroperitoneal or mesenteric adenopathy by size criteria. Vessels: Aorta and inferior vena cava are normal in size. PELVIS: Pelvic Organs: Unremarkable. Bladder: Unremarkable. Pelvic Nodes: No enlarged lymph nodes. Miscellaneous: No hernias are seen. Bones: Unremarkable. IMPRESSION: Bilateral pyelonephritis. No abscesses. Cholecystectomy without evidence of biloma. Dictated by: Carlos Pablo M.D. on 07/30/2023 at 0:52 Approved by: Carlos Pablo M.D. on 07/30/2023 at 0:55
[2023-07-30 00:21] LABS: Adenovirus Not Detected (Not Detect); B. parapertussis Not Detected (Not Detecte); Bordetella pertussis Not Detected (Not Detect); Chlamydophila pneumoniae Not Detected (Not Detect); Coronavirus 229E Not Detected (Not Detect); Coronavirus HKU1 Not Detected (Not Detect); Coronavirus NL 63 Not Detected (Not Detect); Coronavirus OC43 Not Detected (Not Detect); Human Metapneumovirus Not Detected (Not Detect); Human Rhinovirus/Enterovirus Detected (Not Detect); Influenza A Not Detected (Not Detect); Influenza B Not Detected (Not Detect); Mycoplasma pneumoniae Not Detected (Not Detect); Parainfluenza Virus 1 Not Detected (Not Detect); Parainfluenza Virus 2 Not Detected (Not Detect); Parainfluenza Virus 3 Not Detected (Not Detect); Parainfluenza Virus 4 Not Detected (Not Detect); Respiratory Syncytial Virus Not Detected (Not Detect); SARS- CoV-2 Not Detected (Not Detecte)
[2023-07-30] MEDS: SODIUM CHLORIDE 0.9% 1,779 ML 593 ML IV (00:29)
[2023-07-30] MEDS: PIPERACILLIN/TAZO 4.5 GM in SODIUM CHLORIDE 0.9% 100 ML IV (00:32)
[2023-07-30 01:02] LABS: Reflexed Lactate in 2 Hours Y
[2023-07-30] MEDS: ACETAMINOPHEN 325 MG TABLET 975 MG PO (02:00)
--- NOTE | 2023-07-30 02:30 | PC.NURSE ---
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
== END 2023-07-30 06:15 | disposition home or self-care (01) ==
PROVIDERS: Emergency Provider Emergency Medicine; PCP Student in an Organized Health Care Education/Training Program
DX: N12 Tubulo-interstitial nephritis, not specified as acute or chronic (principal); R00.0 Tachycardia, unspecified; B34.8 Other viral infections of unspecified site; R79.89 Other specified abnormal findings of blood chemistry; Z20.822 Contact with and (suspected) exposure to COVID-19
CPT/HCPCS: 36415; 71045; 74177; 80053; 81003; 81015; 81025; 83605; 83690; 84145; 85025; 85610; 85730; 87040; 87077; 87086; 87186; 87633; 93005; 93010; 96361; 96365; 99284; J2543; Q9967

== ENCOUNTER → 2023-11-29 | Outpatient (CLI) | payer MEDICARE, OTHER, SELFPAY ==
[2021-12-19 10:12] VITALS: BMI 28.2
--- NOTE | 2023-11-29 10:44 | DI.DEXA.S_ITS ---
Bone Density Report Name: JULIANA MENDEZ Age: 62 Sex: Female Ethnicity: White Date of : 1960 Indication: postmenopausal; screening for osteoporosis; prior fracture; Referring Provider: MILO NINA Study: Bone densitometry was performed. Exam Date: November 29, 2023 Accession number: [id number] Bone Density: Region BMD T-score Z-score Classification AP Spine(L1-L4) 0.912 -1.2 0.5 Osteopenia Femoral Neck (Left) 0.702 -1.3 0.2 Osteopenia Total Hip (Left) 0.789 -1.3 0.0 Osteopenia Femoral Neck (Right) 0.666 -1.6 -0.1 Osteopenia Total Hip (Right) 0.802 -1.1 0.1 Osteopenia Total Hip Mean 0.795 -1.2 0.1 Osteopenia World Health Organization criteria for BMD impression classify patients as: Normal (T-score at or above -1.0), Osteopenia (T-score between -1.0 and -2.5), or Osteoporosis (T-score at or below -2.5). 10-year Fracture Risk: FRAX not reported because: Prior hip or vertebral fracture Impression: The patient has low bone mass, based on the Right Femoral Neck T-score. The patient has risk factors, including: previous fracture. Discussion: INCREASED RISK OF FRACTURE DUE TO HISTORY OF FRACTURE. The patient's previous fracture puts the patient at high risk of a future fracture. In untreated patients, the risk of osteoporotic fracture increases approximately two-fold for each 1.0 SD decrease in T-score. Low bone density is not the only risk factor for fracture; also consider factors such as patient's age, frailty or poor health, risk of falling, risk of injury, previous osteoporotic fracture, family history of osteoporosis, cigarette smoking, low body weight, etc. Not everyone with a low trauma fracture has osteoporosis; osteomalacia and other metabolic bone disorders should also be considered. Patients who have osteoporosis should be evaluated for specific diseases and conditions (secondary causes) that may cause or contribute to bone loss and fracture risk. National Osteoporosis Foundation (NOF) recommends pharmacologic intervention for patients with a prior hip or vertebral fracture regardless of BMD T-score. The patient should follow a healthful lifestyle (good nutrition with adequate calcium and vitamin D, and appropriate weight-bearing exercise). Follow-Up: Consider a repeat BMD and Vertebral Fracture Assessment (VFA) exam in 2 years or sooner if medically necessary, to reassess this patient's status. Reported by: TEE DOBBS M.D. on 11/29/2023 10:58:00 AM.
== END ==
LOC: RAD 10:24
PROVIDERS: PCP Student in an Organized Health Care Education/Training Program; Referring Provider Nurse Practitioner Family; Visit Provider Nurse Practitioner Family
DX: Z78.0 Asymptomatic menopausal state (principal); M85.851 Other specified disorders of bone density and structure, right thigh
CPT/HCPCS: 77080

== ENCOUNTER → 2025-06-09 | Outpatient (CLI) | payer MEDICARE, OTHER, SELFPAY ==
[2021-12-19 10:12] VITALS: BMI 28.2
--- NOTE | 2025-06-09 13:34 | DI.NM.S_ITS ---
PROCEDURE: NM EXERCISE TREADMILL NON NUC COMPARISON: None. INDICATIONS: CORONARY ARTERY CALCIFICATION FINDINGS: Patient exercised per the standard Rajendra protocol. Total exercise time was 6 minutes and 56 seconds. Test was terminated secondary to fatigue. Maximum heart rate obtained was 150 beats per minute which is 97% of maximum predicted heart rate. Maximum blood pressure of 144/90. KARL-12%. 7.0 Mets. No ischemic changes noted. No chest pains worse. No arrhythmia is present. Normal heart rate and blood pressure response to exercise. IMPRESSION: 1. Negative exercise treadmill stress test for ischemia. 2. Good exercise tolerance. Dictated by: Breezy Ramirez M.D. on 06/10/2025 at 16:11 Approved by: Breezy Ramirez M.D. on 08/06/2025 at 8:11
== END ==
PROVIDERS: PCP Nurse Practitioner Family; Referring Provider Internal Medicine Cardiovascular Disease; Visit Provider Internal Medicine Cardiovascular Disease
DX: I25.10 Atherosclerotic heart disease of native coronary artery without angina pectoris (principal)
CPT/HCPCS: 93017

== ENCOUNTER → 2025-08-27 13:28 | Outpatient (CLI) | payer MEDICARE, OTHER, SELFPAY ==
[2021-12-19 10:12] VITALS: BMI 28.2
--- NOTE | 2025-08-27 13:34 | DI.ECHO.S_ITS ---
[facility] : : [address] : : [place] : : [id number] : : Phone: [phone] Echocardiogram Report + + :Name: JULIANA MENDEZ Study Date: 08/27/2025 Height: 66 in : :[facility] ReadingLocation: Weight: 186 lb : : Gender: Female BSA: 1.9 m2 : :: 1960 Age: 64 yrs BP: 150/91 mmHg: :Reason For Study: HEART MURMUR : :Ordering Physician: AUSTEN, : :CLOTILDE Performed By: Price Trujillo : :Referring: CLOTILDE MEAS : + + Interpretation Summary 1) Normal left ventricular thickness, size, wall motion, and systolic function (EF 60-65%). 2) Normal right ventricular size and function. 3) No significant valvular abnormalities. 4) Compared to the echo done 11/17/2021, no significant change. Procedure: A two-dimensional transthoracic echocardiogram with color flow and Doppler was performed. The study quality was technically good. Comparison is made with the echocardiogram of 11/17/2021. The patient was in normal sinus rhythm during the exam. Left Ventricle: The left ventricle is normal in size. There is normal left ventricular wall thickness. There is no ventricular septal defect visualized. The ejection fraction is estimated to be 60-65%. There are no focal wall motion abnormalities. Diastolic parameters suggest a relaxation abnormality of the left ventricle, consistent with probable normal filling pressures. Right Ventricle: The right ventricle is normal in size and function. Atria: The left atrium is moderately dilated. The right atrium is mildly dilated. The atrial septum is aneurysmal. Mitral Valve: There is mild mitral annular calcification. There is no mitral regurgitation noted. Aortic Valve: The aortic valve is trileaflet. The aortic valve opens well. There is no aortic valve stenosis. No aortic regurgitation is present. Tricuspid Valve: The tricuspid valve leaflets are thin and pliable. There is a trace or physiologic amount of tricuspid regurgitation. Pulmonic Valve: The pulmonic valve is not well seen, but is grossly normal. There is trace pulmonic regurgitation. Great Vessels: The aortic root is normal size. The dimensions of the ascending aorta are normal. The pulmonary artery is normal size. The IVC is of normal diameter and collapses greater than 50% with a sniff. This suggests a low right atrial pressure of 3 mm Hg. Pericardium/ Pleura There is no pericardial effusion. There is no pleural effusion. MMode/2D Measurements & Calculations LVIDd: 3.7 cm LVOT diam: 2.1 cm LVIDs: 2.5 cm Ao root diam: 3.3 cm FS: 32.1 % asc Aorta Diam: 3.4 cm EPSS: 0.86 cm Ao Arch Diam (Prox Trans): 2.0 cm IVSd: 1.1 cm LVPWd: 0.96 cm LV liriano. diameter/BSA (cm/m^2): 1.9 LV sys. diameter/BSA (cm/m^2): 1.3 LA A2 area: 20.7 cm2 RA long axis: 4.7 cm LA A4 area: 21.6 cm2 RA area: 17.6 cm2 LA length (vol): 5.6 cm RA vol: 56.0 ml LA vol: 68.4 ml RA : 28.9 ml/m2 LA vol index: 35.3 ml/m2 IVC diam: 1.3 cm RVD1 (basal): 3.7 cm RVD2 (mid): 2.8 cm TAPSE: 1.9 cm Doppler Measurements & Calculations Ao V2 max: 110.6 cm/sec LVOT Max Pedrito: 103.1 cm/sec Ao V2 mean: 84.5 cm/sec LV V1 max P.2 mmHg Ao max P.9 mmHg LV V1 VTI: 21.5 cm Ao mean P.1 mmHg CATALINA(I,D): 3.4 cm2 Ao V2 VTI: 23.2 cm CATALINA(V,D): 3.4 cm2 sev ratio: 0.93 CATALINA indexed to BSA (cm^2/m^2): 1.7 MV E max pedrito: 60.5 cm/sec TR max pedrito: 233.6 cm/sec MV A max pedrito: 84.4 cm/sec TR max P.8 mmHg MV E/A: 0.72 PA V2 max: 94.7 cm/sec Med Peak E' Pedrito: 6.0 cm/sec PA V2 mean: 67.0 cm/sec E/E' med: 10.0 PA mean P.0 mmHg Lat Peak E' Pedrito: 8.5 cm/sec PA pr(Accel): 37.9 mmHg E/E' lat: 7.1 E/e' average: 8.6 MV dec time: 0.22 sec SV(LVOT): 77.7 ml Reading Physician:06:23 PM
== END ==
LOC: ECHO 13:33
PROVIDERS: PCP Nurse Practitioner Family; Referring Provider Nurse Practitioner Family; Visit Provider Internal Medicine Cardiovascular Disease
DX: I34.81 Nonrheumatic mitral (valve) annulus calcification (principal); R01.1 Cardiac murmur, unspecified
CPT/HCPCS: 93306